=== PATIENT | male | born 1955 | race Caucasian/White ===

== ENCOUNTER 2016-05-14 08:51 | Inpatient (IN) | payer MEDICARE, OTHER ==
[2016-05-14] VITALS (10 sets, daily range): BP systolic 108–153; BP diastolic 59–86
[~2016-05-14] VITALS: Ht 170.2 cm; Wt 71.6 kg
[~2016-05-14 08:51] MED LIST: ASPI325T28 PO; ATOR1TAB18 PO; LEVO125T41 PO; METF500T PO; OMEP20CA3 PO; OXYC-517 PO; VITMTA PO
[2016-05-14] MEDS ORDERED: GASTROGRAFIN SOLUTION 30ML (Q9963) As Ordered ONE (10:22)
[2016-05-14] MEDS ORDERED: ONDANSETRON 4MG/2ML VIAL (J2405) As Ordered ONE ×2 (10:27→16:23)
[2016-05-14] MEDS ORDERED: MORPHINE 4 MG/ML 1ML SYRINGE As Ordered ONE (10:27)
[2016-05-14 10:38] LABS: MEAN CORPUSCULAR HEMOGLOBIN 31.8 pg (27.0-33.0); MEAN CORPUSCULAR HGB CONC 34.1 g/dl (32.0-36.5); MEAN CORPUSCULAR VOLUME 93.4 fl (80.0-96.0); PLATELET COUNT, AUTOMATED 240 k/mm3 (150-450); RED CELL DISTRIBUTION WIDTH 14.2 % (11.5-14.5); WHITE BLOOD COUNT 13.6 K/mm3 (4.0-10.0)
[2016-05-14 11:04] LABS: ALBUMIN 4.2 GM/DL (3.2-5.2); ALBUMIN/GLOBULIN RATIO 1.11 (1.00-1.93); BILIRUBIN,DIRECT 0.4 MG/DL (0.0-0.2); BILIRUBIN,TOTAL 1.6 MG/DL (0.2-1.0); CALCIUM LEVEL 8.5 MG/DL (8.8-10.2); CREATININE FOR GFR 2.31 MG/DL (0.70-1.30); GLOMERULAR FILTRATION RATE 30.8 (>49); POTASSIUM SERUM 3.7 MEQ/L (3.5-5.1)
[2016-05-14] MEDS ORDERED: CEFEPIME INJ 2 GM VIAL (MAXIPIME) (J0692) As Ordered ONE (11:49)
[2016-05-14 11:57] LABS: ABG BASE EXCESS -4.6 (-2.0-2.0); ABG DEVICE NASAL CANN; ABG HCO3 19.4 MEQ/L (22.0-26.0); ABG PARTIAL PRESSURE CO2 33.1 mmHg (35.0-45.0); ABG PARTIAL PRESSURE O2 61.7 mmHg (75.0-100.0); ABG STANDARD HCO3 20.6 MEQ/L (22.0-26.0); ABG TOTAL CO2 20.4 MEQ/L (23.0-31.0); ABG pH (ARTERIAL) 7.386 UNITS (7.350-7.450)
--- NOTE | 2016-05-14 12:10 | REP ---
Abdominal series: Three views. History: Abdominal pain. Findings: Upright chest radiograph is compared with the May 15, 2015 prior study. There is free air under the leaves of the hemidiaphragms bilaterally consistent with pneumoperitoneum. There is some coarse plate-like atelectasis in both lung bases. The patient is status post prior median sternotomy. Heart is not enlarged. There are emphysematous changes in the upper lobes bilaterally unchanged. Supine and erect views of the abdomen show air fluid levels in dilated large and small bowel loops. There is faintly opaque material in the stomach compatible with oral CT contrast. The right hip is replaced. No obstructive lesion is seen. Question ileus pattern. Some vascular calcification is noted. Flank stripes are intact. Psoas margin is intact on the left, obscured on the right by bowel gas. No bony abnormality. Impression: Pneumoperitoneum consistent with perforated intra-abdominal viscus. Ileus pattern in the bowel gas with multiple air-fluid levels. Recommend abdominal and pelvic CT study. Discoid atelectasis is seen in both lung bases. Findings were discussed by telephone with the referring provider in the ER, Dr. Flood, at the time of this dictation. Signed by Pradeep Barlow MD 05/14/2016 02:42 P
[2016-05-14 12:15] LABS: INR 1.2
[2016-05-14] MEDS ORDERED: ASPI1TAB PO (12:40)
[2016-05-14] MEDS ORDERED: LIDOCAINE 2% JELLY 30 ML As Ordered ONE (12:47)
[2016-05-14] MEDS ORDERED: ROCURONIUM BROMIDE 50 MG/5 ML VIAL As Ordered ONE (13:08)
[2016-05-14] MEDS ORDERED: LIDOCAINE 2% INJ 100 MG/5 ML SDV (FOR ANES.) As Ordered ONE (13:08)
[2016-05-14] MEDS ORDERED: PROPOFOL 200 MG/20 ML VIAL As Ordered ONE (13:08)
[2016-05-14] MEDS ORDERED: MIDAZOLAM INJ 2 MG/2 ML VIAL (J2250) As Ordered ONE (13:09)
[2016-05-14] MEDS ORDERED: fentaNYL 250 MCG/5 ML INJECTION (J3010) As Ordered ONE (13:09)
--- NOTE | 2016-05-14 13:14 | REP ---
CT abdomen and pelvis performed with oral contrast only 05/14/2016 Indication generalized abdominal pain Comparison: Abdominal series 05/14/2016 which demonstrated pneumoperitoneum Technique: After drinking two cups of oral contrast each containing 10 ml gastrographin, 3 mm continuous spiral axial sections performed through the abdomen and pelvis Findings: Extensive bullous changes/COPD is seen in the lung bases. There is some patchy infiltrate and/or atelectatic changes or scarring in the lung bases bilaterally and in the right middle lobe. There is a noncalcified pulmonary nodule of 9 mm diameter in the lateral basilar segment left lower lobe on image 15 series 204. Cardiac silhouette is upper normal size three and liver spleen pancreas are unremarkable. Gallbladder is unremarkable. Adrenal glands are normal. Kidneys are without hydro nephrosis. There is generalized ileus pattern involving the stomach, small bowel and colon. There is abundant free intraperitoneal air, as well as some fluid within the left sierra pelvis air-fluid level. Findings are consistent with a perforated viscus. The exact site of viscus perforation is not identified. Atherosclerotic changes are noted in the aorta and iliac arteries, without aneurysm. There are no pathologically enlarged retroperitoneal nodes Bladder is underdistended. Prostate is not enlarged. There is extensive sigmoid diverticulosis. The appendix is normal. Patient has had right total hip arthroplasty in mid there is old bilateral L5 spondylolysis with grade 1 anterolisthesis of five -1. There are advanced degenerative disc changes at this level. Impression: Free intraperitoneal air seen bilaterally and diffusely consistent with perforated viscus. The specific location of viscus perforation is not identified yet may lie in the colon. Generalized ileus pattern with gastric distension and colonic distension primarily. Collection of air and fluid in the left sierra pelvis, best seen on image 118 series 201, most compatible with a extraluminal collection, measuring 6.8 by 2.4 cm Patchy infiltrate and/or atelectatic changes or scarring in the lung bases bilaterally and in the right middle lobe. There is a noncalcified pulmonary nodule of 9 mm diameter in the lateral basilar segment left lower lobe on image 15 series 204, for which follow up CT chest recommended. Case discussed with NORBERTO Palmer in ED on 05/14/16 at 1 pm Signed by Sarah Salter MD 05/14/2016 01:06 P
--- NOTE | 2016-05-14 14:03 | EDDOCDS ---
Nurse's Notes [facility] Name: Darrian Sim Jr Age: 60 yrs Sex: Male : 1955 Arrival Date: 05/14/2016 Time: 08:51 Bed 10 Private MD: Diagnosis: Perforation of intestine (nontraumatic);Hypotension;Generalized abdominal pain;Nausea with vomiting, unspecified;Sepsis, unspecified organism;Acute kidney failure, unspecified Presentation: 05/14 09:14 Presenting complaint: Patient states: lower abdominal pain and pressure for the last 2 dy days. no BM for 2-3 days. sipping at water since yesterday due to vomiting yesterday. concerned about dehydration. Adult Sepsis Screening: The patient does not have new or worsening altered mentation. Patient's respiratory rate is less than 22. Systolic blood pressure is less than or equal to 100 (1 point). Patient has a qSOFA score of 1- Negative Sepsis Screen. Suicide/Homicide risk assessment- the patient denies having any suicidal and/or homicidal ideations and does not present with any other emotional, behavioral or mental health complaints. Status: Patient is not a technical services representative or dependent. Transition of care: patient was not received from another setting of care. 09:14 Acuity: ONUR Level 3 dy 09:14 Method Of Arrival: Wheelchair dy Triage Assessment: 09:18 General: Appears in no apparent distress. Pain: Location: right lower quadrant and left dy lower quadrant. HIV screening NA for this visit Offered previously. GI: Reports lower abdominal pain. Historical: - Allergies: PENICILLINS (Hives); Codeine Sulfaterestless; - Home Meds: 1. aspirin 81 mg Oral tab 1 tab once daily 2. metformin 500 mg Oral tab 1 tab 2 times per day 3. Omeprazole Unknown Oral 1 cap once daily (Last dose: 05/14/2016 07:00) 4. oxycodone 5 mg Oral tab 1 cap every 6 hours 5. Synthroid Oral Unknown once daily - PMHx: Diabetes - NIDDM: controlled; GERD; Hypercholesterolemia; Hypothyroidism; - PSHx: right hip replacement; - Social history: Smoking status: Patient uses tobacco products, heavy tobacco smoker. No barriers to communication noted, The patient speaks fluent [place], Speaks appropriately for age. - Family history: Not pertinent. - : The pt / caregiver states he / she is not on anticoagulants. Home medication list is obtained from the patient. - Exposure Risk Screening:: None identified. Screenin:36 Screening information is obtained from the patient. Fall risk: No risks identified. pml Assistance ADL's: requires no assistance with activities of daily living. Abuse/DV Screen: The patient / caregiver reports he/she is: not in a situation that causes fear, pain or injury. Nutritional screening: No deficits noted. Advance Directives: Currently, there is no health care proxy. home support is adequate. Assessment: 10:36 General: Appears uncomfortable, Behavior is appropriate for age, cooperative. Pain: pml Location: right lower quadrant and left lower quadrant Pain currently is 10 out of 10 on a pain scale. Neurological: Level of Consciousness is awake, alert, Oriented to person, place, time. Cardiovascular: Capillary refill < 3 seconds Rhythm is sinus rhythm No ectopy. Respiratory: Airway is patent Respiratory effort is even, unlabored, Respiratory pattern is regular, symmetrical. GI: Abdomen is distended, Bowel sounds hypoactive in right lower quadrant and left lower quadrant Abd is tender to palpation in right lower quadrant and left lower quadrant Abd is rigid X 4 quads. GI: Reports constipation, nausea, vomiting, intolerance of food. Derm: Skin is pink, warm & dry. 11:38 General: resting on stretcher, resps easy and unlabored, skin p/w/d. sinus rhythm on pml monitor. reports pain is much improved 5/10. . 12:10 Adult Sepsis Screening: Accepted Exclusions- The Sepsis Protocol has been ordered by pml the Provider. 12:56 General: Appears in no apparent distress, Behavior is appropriate for age, cooperative. pml Pain: Location: left lower quadrant and right lower quadrant Pain currently is 5 out of 10 on a pain scale. Neurological: Level of Consciousness is awake, alert, Oriented to person, place, none. Cardiovascular: Capillary refill < 3 seconds Rhythm is sinus rhythm No ectopy. Respiratory: Airway is patent Respiratory effort is even, unlabored. GI: Abdomen is distended. : Pulido in place to gravity drainage Urine is concentrated. Derm: Skin is pink, warm & dry. 14:00 General: Appears in no apparent distress, Behavior is appropriate for age, cooperative. pml Pain: Location: left lower quadrant and right lower quadrant Pain currently is 5 out of 10 on a pain scale. Neurological: Level of Consciousness is awake, alert, Oriented to person, place, time. Cardiovascular: Capillary refill < 3 seconds. Respiratory: Airway is patent Respiratory effort is even, unlabored. GI: Abdomen is distended. Derm: Skin is pink, warm & dry. Vital Signs: 09:13 BP 83 / 55; Pulse 88; Resp 16; Temp 95.3(O); Pulse Ox 96% ; Weight 70.31 kg (R); Height dy 5 ft. 7 in. (170.18 cm) (R); 10:04 BP 85 / 54 LA Sitting (man/reg); jrd 10:25 BP 91 / 53 (auto/); pml 10:28 Pulse 88 MON; Pulse Ox 88% ; pml 10:40 Pulse 84 MON; Pulse Ox 93% ; pml 10:40 BP 102 / 71 (auto/); pml 10:55 BP 98 / 54 (auto/); pml 10:56 Pulse 86 MON; Pulse Ox 74% ; pml 11:04 Pain 5/10; pml 11:10 Pulse 86 MON; Pulse Ox 92% ; pml 11:10 BP 103 / 62 (auto/); pml 11:25 Pulse 82 MON; Pulse Ox 93% ; pml 11:25 BP 105 / 63 (auto/); pml 11:40 BP 104 / 66 (auto/); pml 11:41 Pulse 84 MON; Pulse Ox 92% ; pml 11:55 BP 102 / 67 (auto/); pml 11:56 Pulse 84 MON; Pulse Ox 94% ; pml 12:18 BP 99 / 65 (auto/); pml 12:18 Pulse 84 MON; Pulse Ox 94% ; pml 12:25 BP 85 / 50 (auto/); pml 12:25 Pulse 84 MON; Pulse Ox 100% ; pml 12:37 BP 114 / 71 (auto/); pml 12:38 Pulse 88 MON; Pulse Ox 90% ; pml 12:40 BP 98 / 55 (auto/); pml 12:41 Pulse 92 MON; pml 12:55 Pulse 86 MON; Pulse Ox 94% ; pml 12:55 BP 94 / 59 (auto/); pml 13:10 Pulse 86 MON; Pulse Ox 90% ; pml 13:10 BP 101 / 63 (auto/); pml 13:25 Pulse 90 MON; Pulse Ox 96% ; pml 13:25 BP 105 / 51 (auto/); pml 13:42 Pulse 88 MON; Pulse Ox 94% ; pml 13:42 BP 105 / 64 (auto/); pml 14:01 BP 105 / 65; Pulse 87; Resp 18; Temp 99.3(TE); Pulse Ox 94% on 2 lpm NC; Pain 4/10; pml 09:13 Body Mass Index 24.28 (70.31 kg, 170.18 cm) dy Vitals: 09:13 Log In Time: May 14, 2016 at 08:51. dy ED Course: 08:53 Patient visited by Manny Barriga, Reg. pm4 08:53 Patient moved to Waiting pm4 09:15 Triage Initiated dy 09:21 Patient moved to Pre RCE dy 09:38 Patient moved to Triage 3 jrd 09:41 Minerva Palmer PA-C is PHCP. dt4 09:41 Pito Flood MD is Attending Physician. dt4 09:41 Patient visited by Minerva Palmer PA-C. dt4 09:57 Patient moved to I2 / M2 dwg 10:05 Patient visited by Octavio Moeller PCA. jrd 10:24 Francy Walsh,RN is Primary Nurse. ml6 10:24 Patient moved to 10 ml6 10:26 Lactic Acid (Lara tube on ice) Sent. jo3 10:26 Liver Profile Sent. jo3 10:26 Lipase Sent. jo3 10:26 CBC with Diff Sent. jo3 10:26 Basic Metabolic Profile Sent. jo3 10:26 Amylase Sent. jo3 10:26 Inserted saline lock: 18 gauge in left antecubital area. Labs drawn. (by ED staff). jo3 Sent per order to lab. Labs/Blood culture drawn. 10:36 Primary Nurse role handed off by Francy Walsh,RN jmb 10:36 The patient / caregiver is instructed regarding the plan of care and ED course. Patient pml has correct armband on for positive identification. Placed in gown. Bed in low position. Call light in reach. Side rails up X2. slitter creaser slotter helper on. Pulse ox on. NIBP on. 10:38 Patient visited by Shaila Theodore,CARLITA. pml 10:51 [facility] [place] was scanned into [employer] and attached to record. pm4 10:55 Patient name changed from [place]\S\L\S\Sim\S\ to Darrian\S\L\S\Sim Jr. EDMS 11:20 Inserted peripheral IV: 18gauge IV in right antecubital area and blood collected. pml Patient tolerated the procedure well. No procedures done that require assistance. 11:33 Patient visited by Kehinde Glaser PCA. jlf 11:40 Patient visited by Shaila Theodore,CARLITA. pml 11:42 EKG done. (by ED staff). Reviewed by Minerva Palmer PA-C. jlf 11:44 Patient visited by Kehinde Glaser PCA. jlf 11:44 Patient visited by Kehinde Glaser PCA. jlf 11:54 -Arterial Blood Gas Sent. cs15 12:11 Patient visited by Shaila Theodore RN. pml 12:39 Abdomen, Flat\E\Upright,PA Chest Returned. EDMS 12:44 Paul Hong is Hospitalizing Provider. dt4 12:45 Pulido cath inserted 16 Fr. Balloon inflated. To gravity drainage. Urine specimen pml collected. 12:47 Patient visited by Kehinde Glaser PCA. jlf 12:58 Patient visited by Shaila Theodore,CARLITA. pml 13:20 CT ABD & PELVIS: Oral Contrast Only Returned. EDMS Administered Medications: 10:30 Drug: Diatrizoate Meglumine & Sodium 10 ml [diatrizoate meglumine and diat.sodium 66 jo3 %-10 % oral solution (10 mL)] Route: PO; 10:36 Drug: NS 0.9% 1000 ml [sodium chloride 0.9 % injection solution] Route: IV; Rate: pml bolus; Site: left antecubital; 11:42 Follow up: IV Status: Infusion continued pml 10:36 Drug: Ondansetron 4 mg [ondansetron HCl 2 mg/mL intravenous solution (2 mL)] Route: pml IVP; Site: left antecubital; 10:36 Drug: morphine 4 mg [morphine 4 mg/mL intravenous cartridge (1 mL)] Route: IVP; Site: pml left antecubital; 11:04 Follow up: Pain 5/10 Adult; Response: Pain is decreased pml 11:04 Drug: Diatrizoate Meglumine & Sodium 10 ml [diatrizoate meglumine and diat.sodium 66 pml %-10 % oral solution (10 mL)] Route: PO; 11:42 Not Given (Duplicate Order): NS 0.9% 1000 ml IV at bolus once pml 11:42 Drug: NS 0.9% (Sepsis- hypotension or lactate >4mmol/L, 30ml/kg) 2200 ml [sodium pml chloride 0.9 % injection solution] Route: IV; Rate: bolus; Site: right antecubital; 14:01 Follow up: IV Status: Infusion continued upon admit; IV Intake: 1500ml pml 11:56 Drug: Cefepime 2 grams [cefepime 1 gram solution for injection] Route: IVPB; Rate: 100 pml mL/hr; Infused Over: 30 mins; Site: right antecubital; 13:19 Follow up: IV Status: Completed infusion; IV Intake: 100ml pml Intake: 13:19 IV: 100.00ml; Total: 100.00ml. pml 14:01 IV: 1500.00ml; Total: 1600.00ml. pml RT: 11:54 ABG's drawn from right radial artery allens test done and positive pressure held for 5 cs15 minutes no bleeding noted pressure bandage applied specimen sent pt. tolerated well. O2 via nasal cannula \T\ 2L/min. Order Results: Lab Order: Urinalysis; SPEC'M 05/14/16 12:56 Test: APPEARANCE, URINE; Value: HAZY; Range: CLEAR; Status: F Test: COLOR, URINE; Value: YELLOW; Range: YELLOW; Status: F Test: PH,URINE; Value: 5.0; Range: 5.0-9.0; Units: UNITS; Status: F Test: SPECIFIC GRAVITY URINE AUTO; Value: 1.015; Range: 1.002-1.035; Status: F Test: PROTEIN, URINE AUTO; Value: NEGATIVE; Range: NEGATIVE; Units: mg/dL; Status: F Test: GLUCOSE, URINE (UA) AUTO; Value: NEGATIVE; Range: NEGATIVE; Units: mg/dL; Status: F Test: KETONE, URINE AUTO; Value: NEGATIVE; Range: NEGATIVE; Units: mg/dL; Status: F Test: UROBILINOGEN, URINE AUTO; Value: 0.2; Range: 0.0-2.0; Units: mg/dL; Status: F Test: BILIRUBIN, URINE AUTO; Value: NEGATIVE; Range: NEGATIVE; Status: F Test: NITRITE, URINE AUTO; Value: NEGATIVE; Range: NEGATIVE; Status: F Test: LEUKOCYTE ESTERASE, URINE AUTO; Value: NEGATIVE; Range: NEGATIVE; Status: F Test: BLOOD, URINE BLOOD; Value: 1+; Range: NEGATIVE; Abnormal: Above high normal; Status: F Test: WBC, URINE AUTO; Value: 8; Range: 0-3; Abnormal: Above high normal; Units: /HPF; Status: F Test: RBC, URINE AUTO; Value: 5; Range: 0-3; Abnormal: Above high normal; Units: /HPF; Status: F Test: BACTERIA, URINE AUTO; Value: 1+; Range: NEGATIVE; Abnormal: Above high normal; Status: F Test: SQUAMOUS EPITHELIAL CELL UR AU; Value: 1; Range: 0-6; Units: /HPF; Status: F Test: MUCUS, URINE; Value: SMALL; Range: NEGATIVE; Status: F Test: HYALINE CAST, URINE AUTO; Value: 8; Range: 0-1; Units: /LPF; Status: F Test: GRANULAR CAST, URINE AUTO; Value: 11; Range: NONE; Units: /LPF; Status: F Lab Order: Amylase; [facility] 05/14/16 10:21 Test: AMYLASE; Value: 28; Range: 25-115; Units: U/L; Status: F Lab Order: Basic Metabolic Profile; [facility] 05/14/16 10:21 Test: GLUCOSE, FASTING; Value: 146; Range: 80-110; Abnormal: Above high normal; Units: MG/DL; Status: F Test: BLOOD UREA NITROGEN; Value: 34; Range: 7-18; Abnormal: Above high normal; Units: MG/DL; Status: F Test: CREATININE FOR GFR; Value: 2.31; Range: 0.70-1.30; Abnormal: Above high normal; Units: MG/DL; Status: F Test: GLOMERULAR FILTRATION RATE; Value: 30.8; Range: >49; Abnormal: Below low normal; Status: F Test: SODIUM LEVEL; Value: 138; Range: 136-145; Units: MEQ/L; Status: F Test: POTASSIUM SERUM; Value: 3.7; Range: 3.5-5.1; Units: MEQ/L; Status: F Test: CHLORIDE LEVEL; Value: 96; Range: 98-107; Abnormal: Below low normal; Units: MEQ/L; Status: F Test: CARBON DIOXIDE LEVEL; Value: 22; Range: 21-32; Units: MEQ/L; Status: F Test: ANION GAP; Value: 20; Range: 8-16; Abnormal: Above high normal; Units: MEQ/L; Status: F Test: CALCIUM LEVEL; Value: 8.5; Range: 8.8-10.2; Abnormal: Below low normal; Units: MG/DL; Status: F Test Note: ; Units are mL/min/1.73 m2 Chronic Kidney Disease Staging per NKF: Stage I & II GFR >=60 Normal to Mildly Decreased Stage III GFR 30-59 Moderately Decreased Stage IV GFR 15-29 Severely Decreased Stage V GFR <15 Very Little GFR Left ESRD GFR <15 on ACTIVITIES LEADER Lab Order: CBC with Diff; SPEC'M 05/14/16 10:21 Test: WHITE BLOOD COUNT; Value: 13.6; Range: 4.0-10.0; Abnormal: Above high normal; Units: K/mm3; Status: F Test: RED BLOOD COUNT; Value: 5.26; Range: 4.30-6.10; Units: M/mm3; Status: F Test: HEMOGLOBIN; Value: 16.8; Range: 14.0-18.0; Units: g/dl; Status: F Test: HEMATOCRIT; Value: 49.2; Range: 42.0-52.0; Units: %; Status: F Test: MEAN CORPUSCULAR VOLUME; Value: 93.4; Range: 80.0-96.0; Units: fl; Status: F Test: MEAN CORPUSCULAR HEMOGLOBIN; Value: 31.8; Range: 27.0-33.0; Units: pg; Status: F Test: MEAN CORPUSCULAR HGB CONC; Value: 34.1; Range: 32.0-36.5; Units: g/dl; Status: F Test: RED CELL DISTRIBUTION WIDTH; Value: 14.2; Range: 11.5-14.5; Units: %; Status: F Test: PLATELET COUNT, AUTOMATED; Value: 240; Range: 150-450; Units: k/mm3; Status: F Test: NEUTROPHILS; Value: 93; Range: 35-75; Abnormal: Above high normal; Units: %; Status: F Test: LYMPHOCYTES; Value: 6; Range: 16-52; Abnormal: Below low normal; Units: %; Status: F Test: MONOCYTES; Value: 1; Range: 0-8; Units: %; Status: F Test: RBC MORPHOLOGY; Value: NORMAL; Status: F Lab Order: Lipase; [facility] 05/14/16 10:21 Test: LIPASE; Value: 50; Range: 73-393; Abnormal: Below low normal; Units: U/L; Status: F Lab Order: Liver Profile; [facility] 05/14/16 10:21 Test: AST/SGOT; Value: 18; Range: 15-37; Units: U/L; Status: F Test: ALT/SGPT; Value: 20; Range: 12-78; Units: U/L; Status: F Test: ALKALINE PHOSPHATASE; Value: 97; Range: 45-117; Units: U/L; Status: F Test: BILIRUBIN,TOTAL; Value: 1.6; Range: 0.2-1.0; Abnormal: Above high normal; Units: MG/DL; Status: F Test: BILIRUBIN,DIRECT; Value: 0.4; Range: 0.0-0.2; Abnormal: Above high normal; Units: MG/DL; Status: F Test: TOTAL PROTEIN; Value: 8.0; Range: 6.4-8.2; Units: GM/DL; Status: F Test: ALBUMIN; Value: 4.2; Range: 3.2-5.2; Units: GM/DL; Status: F Test: ALBUMIN/GLOBULIN RATIO; Value: 1.11; Range: 1.00-1.93; Status: F Lab Order: CRP; [facility] 05/14/16 10:21 Test: C REACTIVE PROTEIN QUANTITATIV; Value: 21.50; Range: 0.00-0.30; Abnormal: Above high normal; Units: MG/DL; Status: F Lab Order: Lactic Acid (Lara tube on ice); [facility] 05/14/16 10:21 Test: LACTIC ACID LEVEL, LACTATE; Value: 8.5; Range: 0.4-2.0; Abnormal: Above upper panic limits; Units: MMOL/L; Status: F Lab Order: PLATELET ESTIMATE; [facility] 05/14/16 10:21 Test: PLATELET ESTIMATE; Value: NORMAL; Range: NORMAL; Status: F Lab Order: -Arterial Blood Gas; [facility] 05/14/16 11:51 Test: ABG pH (ARTERIAL); Value: 7.386; Range: 7.350-7.450; Units: UNITS; Status: F Test: ABG PARTIAL PRESSURE CO2; Value: 33.1; Range: 35.0-45.0; Abnormal: Below low normal; Units: mmHg; Status: F Test: ABG PARTIAL PRESSURE O2; Value: 61.7; Range: 75.0-100.0; Abnormal: Below low normal; Units: mmHg; Status: F Test: ABG TOTAL CO2; Value: 20.4; Range: 23.0-31.0; Abnormal: Below low normal; Units: MEQ/L; Status: F Test: ABG HCO3; Value: 19.4; Range: 22.0-26.0; Abnormal: Below low normal; Units: MEQ/L; Status: F Test: ABG BASE EXCESS; Value: -4.6; Range: -2.0-2.0; Abnormal: Below low normal; Status: F Test: ABG STANDARD HCO3; Value: 20.6; Range: 22.0-26.0; Abnormal: Below low normal; Units: MEQ/L; Status: F Test: ABG O2 SATURATION; Value: 91.4; Range: 95.0-99.0; Abnormal: Below low normal; Units: %; Status: F Test: ABG DEVICE; Value: NASAL REBECA; Status: F Lab Order: PT/INR; [facility] 05/14/16 11:36 Test: PROTHROMBIN TIME; Value: 15.3; Range: 12.3-14.5; Abnormal: Above high normal; Units: SECONDS; Status: F Test: INR; Value: 1.20; Status: F Test Note: ; THERAPUTIC HUMAN INR VALUES INDICATIONS NORMAL RANGES PROPHYLAXIS/TREATMENT OF: VENOUS THROMBOSIS 2.0-3.0 PULMONARY EMBOLISM 2.0-3.0 PREVENTION OF SYSTEMIC EMBOLISM FROM: TISSUE HEART VALVES 2.0-3.0 ACUTE MYOCARDIAL INFARCTION 2.0-3.0 VALVULAR HEART DISEASE 2.0-3.0 ATRIAL FIBRILLATION 2.0-3.0 MECHANICAL VALVES(HIGH RISK) 2.5-3.5 RECURRENT MYOCARDIAL INFARCTION 2.5-3.5 Lab Order: PTT; SPEC'M 05/14/16 11:36 Test: PARTIAL THROMBOPLASTIN TIME; Value: 25.4; Range: 26.6-37.1; Abnormal: Below low normal; Units: SECONDS; Status: F Lab Order: Type & Screen; SPEC'M 05/14/16 11:36 Test: BLOOD TYPE; Value: A POS; Status: F Radiology Order: CT ABD & PELVIS: Oral Contrast Only Test: CT ABD & PELVIS: Oral Contrast Only REASON FOR EXAMINATION: Abdomen Pain; CT abdomen and pelvis performed with oral contrast only 05/14/2016; ; Indication generalized abdominal pain; ; Comparison: Abdominal series 05/14/2016 which demonstrated pneumoperitoneum; ; Technique: After drinking two cups of oral contrast each containing 10 ml; gastrographin, 3 mm continuous spiral axial sections performed through the; abdomen and pelvis; ; Findings: Extensive bullous changes/COPD is seen in the lung bases. There is; some patchy infiltrate and/or atelectatic changes or scarring in the lung bases; bilaterally and in the right middle lobe. There is a noncalcified pulmonary; nodule of 9 mm diameter in the lateral basilar segment left lower lobe on image; 15 series 204.; ; Cardiac silhouette is upper normal size three and liver spleen pancreas are; unremarkable. Gallbladder is unremarkable. Adrenal glands are normal. Kidneys; are without hydro nephrosis.; ; There is generalized ileus pattern involving the stomach, small bowel and colon.; There is abundant free intraperitoneal air, as well as some fluid within the left; sierra pelvis air-fluid level. Findings are consistent with a perforated viscus.; The exact site of viscus perforation is not identified. Atherosclerotic changes; are noted in the aorta and iliac arteries, without aneurysm. There are no; pathologically enlarged retroperitoneal nodes; ; Bladder is underdistended. Prostate is not enlarged. There is extensive sigmoid; diverticulosis. The appendix is normal. Patient has had right total hip; arthroplasty in mid there is old bilateral L5 spondylolysis with grade 1; anterolisthesis of five -1. There are advanced degenerative disc changes at this; level.; ; Impression:; ; Free intraperitoneal air seen bilaterally and diffusely consistent with; perforated viscus. The specific location of viscus perforation is not identified; yet may lie in the colon.; ; Generalized ileus pattern with gastric distension and colonic distension; primarily. Collection of air and fluid in the left sierra pelvis, best seen on; image 118 series 201, most compatible with a extraluminal collection, measuring; 6.8 by 2.4 cm; ; Patchy infiltrate and/or atelectatic changes or scarring in the lung bases; bilaterally and in the right middle lobe. There is a noncalcified pulmonary; nodule of 9 mm diameter in the lateral basilar segment left lower lobe on image; 15 series 204, for which follow up CT chest recommended.; ; ; ; Case discussed with NORBERTO Palmer in ED on 05/14/16 at 1 pm; ; ; Signed by; Sarah Salter MD 05/14/2016 01:06 P; Radiology Order: Abdomen, Flat\E\Upright,PA Chest Test: Abdomen, Flat\E\Upright,PA Chest REASON FOR EXAMINATION: Abdomen Pain; Abdominal series: Three views.; ; History: Abdominal pain.; ; Findings: Upright chest radiograph is compared with the May 15, 2015 prior; study. There is free air under the leaves of the hemidiaphragms bilaterally; consistent with pneumoperitoneum. There is some coarse plate-like atelectasis in; both lung bases. The patient is status post prior median sternotomy. Heart is; not enlarged. There are emphysematous changes in the upper lobes bilaterally; unchanged.; ; Supine and erect views of the abdomen show air fluid levels in dilated large and; small bowel loops. There is faintly opaque material in the stomach compatible; with oral CT contrast. The right hip is replaced. No obstructive lesion is; seen. Question ileus pattern. Some vascular calcification is noted. Flank; stripes are intact. Psoas margin is intact on the left, obscured on the right by; bowel gas. No bony abnormality.; ; Impression:; ; Pneumoperitoneum consistent with perforated intra-abdominal viscus. Ileus; pattern in the bowel gas with multiple air-fluid levels. Recommend abdominal and; pelvic CT study. Discoid atelectasis is seen in both lung bases.; ; Findings were discussed by telephone with the referring provider in the ER, Dr.; Flood, at the time of this dictation.; ; ; ; ; Unreviewed; Outcome: 10:26 Discharge Assessment:. jo3 12:47 Decision to Hospitalize by Provider. dt4 14:02 Discharge Assessment: Patient awake, alert and oriented x 3. No cognitive and/or pml functional deficits noted. Patient verbalized understanding of disposition instructions. patient administered narcotics - yes. Patient was admitted to the hospital or transferred to another facility. 14:02 The following High Risk Discharge criteria are identified: None. Admitted to OR pml accompanied by nurse, accompanied by tech, via stretcher, with oxygen, on monitor, with chart. Condition: stable. CT Study completed. Admission hand-off: Other: bedside report in pacu . Property given to family member, son. 14:03 Patient left the ED. pml Signatures: Dispatcher [employer] EDMS Jr Maurice, RN RN Reece Aggarwal, RN RN Rebekah CardonaRN RN Doug Canseco RN RN ml6 Shaila TheodoreRN Lorne CardozoRN RN Kehinde Hadley, PUBLIC DEFENDER PUBLIC DEFENDER Minerva Moran, PA-Grant PA-C dt4 Octavio Moeller, PUBLIC DEFENDER PUBLIC DEFENDER jrd Girish Wynn,RT RT cs15 Manny Barriga, Reg Reg pm4 MTDD
--- NOTE | 2016-05-14 14:03 | EDDOCDS ---
Physician Documentation [facility] Name: Darrian Sim Jr Age: 60 yrs Sex: Male : 1955 Arrival Date: 05/14/2016 Time: 08:51 Bed 10 Private MD: Disposition: 05/14/16 12:47 Hospitalization ordered by Paul Urbina for Inpatient Admission. Preliminary diagnosis are Perforation of intestine (nontraumatic), Hypotension, Generalized abdominal pain, Nausea with vomiting, unspecified, Sepsis, unspecified organism, Acute kidney failure, unspecified. - Bed requested for Admit. - Status is Inpatient Admission. pml - Condition is Stable. - Problem is new. - Symptoms have improved. Historical: - Allergies: PENICILLINS (Hives); Codeine Sulfaterestless; - Home Meds: 1. aspirin 81 mg Oral tab 1 tab once daily 2. metformin 500 mg Oral tab 1 tab 2 times per day 3. Omeprazole Unknown Oral 1 cap once daily (Last dose: 05/14/2016 07:00) 4. oxycodone 5 mg Oral tab 1 cap every 6 hours 5. Synthroid Oral Unknown once daily - PMHx: Diabetes - NIDDM: controlled; GERD; Hypercholesterolemia; Hypothyroidism; - PSHx: right hip replacement; - Social history: Smoking status: Patient uses tobacco products, heavy tobacco smoker. No barriers to communication noted, The patient speaks fluent Welsh, Speaks appropriately for age. - Family history: Not pertinent. - : The pt / caregiver states he / she is not on anticoagulants. Home medication list is obtained from the patient. - Exposure Risk Screening:: None identified. Vital Signs: 05/14 09:13 BP 83 / 55; Pulse 88; Resp 16; Temp 95.3(O); Pulse Ox 96% ; Weight 70.31 kg / 155.01 dy lbs (R); Height 5 ft. 7 in. (170.18 cm) (R); 10:04 BP 85 / 54 LA Sitting (man/reg); jrd 10:25 BP 91 / 53 (auto/); pml 10:28 Pulse 88 MON; Pulse Ox 88% ; pml 10:40 Pulse 84 MON; Pulse Ox 93% ; pml 10:40 BP 102 / 71 (auto/); pml 10:55 BP 98 / 54 (auto/); pml 10:56 Pulse 86 MON; Pulse Ox 74% ; pml 11:04 Pain 5/10; pml 11:10 Pulse 86 MON; Pulse Ox 92% ; pml 11:10 BP 103 / 62 (auto/); pml 11:25 Pulse 82 MON; Pulse Ox 93% ; pml 11:25 BP 105 / 63 (auto/); pml 11:40 BP 104 / 66 (auto/); pml 11:41 Pulse 84 MON; Pulse Ox 92% ; pml 11:55 BP 102 / 67 (auto/); pml 11:56 Pulse 84 MON; Pulse Ox 94% ; pml 12:18 BP 99 / 65 (auto/); pml 12:18 Pulse 84 MON; Pulse Ox 94% ; pml 12:25 BP 85 / 50 (auto/); pml 12:25 Pulse 84 MON; Pulse Ox 100% ; pml 12:37 BP 114 / 71 (auto/); pml 12:38 Pulse 88 MON; Pulse Ox 90% ; pml 12:40 BP 98 / 55 (auto/); pml 12:41 Pulse 92 MON; pml 12:55 Pulse 86 MON; Pulse Ox 94% ; pml 12:55 BP 94 / 59 (auto/); pml 13:10 Pulse 86 MON; Pulse Ox 90% ; pml 13:10 BP 101 / 63 (auto/); pml 13:25 Pulse 90 MON; Pulse Ox 96% ; pml 13:25 BP 105 / 51 (auto/); pml 13:42 Pulse 88 MON; Pulse Ox 94% ; pml 13:42 BP 105 / 64 (auto/); pml 14:01 BP 105 / 65; Pulse 87; Resp 18; Temp 99.3(TE); Pulse Ox 94% on 2 lpm NC; Pain 4/10; pml 09:13 Body Mass Index 24.28 (70.31 kg, 170.18 cm) dy MDM: 09:18 Urinalysis Ordered. EDMS 09:18 Urine Culture Ordered. EDMS 09:54 NS 0.9% 1000 ml IV at bolus once ordered. dt4 09:54 Ondansetron 4 mg IVP once ordered. dt4 09:54 IV Saline Lock ordered. dt4 09:54 Undress patient appropriately for examination ordered. dt4 09:54 morphine 4 mg IVP once ordered. dt4 09:55 Amylase Ordered. EDMS 09:55 Basic Metabolic Profile Ordered. EDMS 09:55 CBC with Diff Ordered. EDMS 09:55 Lipase Ordered. EDMS 09:55 Liver Profile Ordered. EDMS 09:55 CRP Ordered. EDMS 09:55 NOTHING BY MOUTH+DIET ordered. EDMS 09:55 CT ABD & PELVIS: Oral Contrast Only Ordered. EDMS 09:56 Financial registration complete. pm4 10:02 NS 0.9% 1000 ml IV at bolus once ordered. dt4 10:05 Cold Food Packer ordered. dt4 10:06 -Blood Culture (Adults Only), peripheral from different site, or from device/port/PICC dt4 etc. if present ordered. 10:08 Lactic Acid (Lara tube on ice) Ordered. EDMS 10:08 -Blood Culture Ordered. EDMS 10:25 -Blood Culture (Adults Only), peripheral from different site, or from device/port/PICC lbd etc. if present complete. 10:28 BLOOD CULTURES Ordered. EDMS 10:32 Diatrizoate Meglumine & Sodium Liquid 10 ml PO once; 1st cup at 1030 ordered. jo3 10:33 Diatrizoate Meglumine & Sodium Liquid 10 ml PO once; 2nd cup at 1100 ordered. jo3 10:40 DIFFERENTIAL NO CHARGE Ordered. EDMS 10:40 PLATELET ESTIMATE Ordered. EDMS 10:51 [facility] Payment Agreement was scanned into [employer] and attached to record. pm4 11:12 Abdomen, Flat\E\Upright,PA Chest Ordered. EDMS 11:13 BED REQUEST+ADM ordered. EDMS 11:36 Call Respiratory ordered. dt4 11:36 Cold Food Packer/Pulse Ox/q 15 min VS ordered. dt4 11:36 Large bore IV x 2 ordered. dt4 11:36 Oxygen at 4L/Min NC or Home dosage ordered. dt4 11:36 Intake and Output Hourly ordered. dt4 11:37 -Arterial Blood Gas Ordered. EDMS 11:37 PT/INR Ordered. EDMS 11:37 PTT Ordered. EDMS 11:37 Type & Screen Ordered. EDMS 11:37 ECG WITH READING ER PHYS+CARDIAG ordered. EDMS 11:37 Call Respiratory complete. lbd 11:39 Cefepime 2 grams IVPB at 100 mL/hr once over 30 mins; dilute in 50mL of NS or D5W dt4 ordered. 11:39 NS 0.9% (Sepsis- hypotension or lactate >4mmol/L, 30ml/kg) 2200 ml IV at bolus once; dt4 Give in 500mL aliquots, assess for rales after each, inform provider ordered. 11:42 NS 0.9% 1000 ml IV at bolus once ordered. pml 12:21 ED course: SPOKE WITH DR. RAMIREZ AT THIS TIME. ADVISED THIS PT WOULD NEED AT LEAST A dt4 HOSPITALIST CONSULT AND SURGICAL ADMISSION, OR VICE VERSA. DR. RAMIREZ IN AGREEMENT AND STATES WILL COME DOWN TO SEE THIS PT. . ED course: SPOKE WITH NURSE IN O.R. REGARDING THIS PT. ADVISED DR. URBINA IS SCRUBBED IN AT THIS TIME AND TOOK A MESSAGE REGARDING THIS PT. WILL CALL BACK OR COME DOWN WHEN ABLE. . 12:34 Pulido ordered. pml Administered Medications: 10:30 Drug: Diatrizoate Meglumine & Sodium 10 ml [diatrizoate meglumine and diat.sodium 66 jo3 %-10 % oral solution (10 mL)] Route: PO; 10:36 Drug: NS 0.9% 1000 ml [sodium chloride 0.9 % injection solution] Route: IV; Rate: pml bolus; Site: left antecubital; 11:42 Follow up: IV Status: Infusion continued pml 10:36 Drug: Ondansetron 4 mg [ondansetron HCl 2 mg/mL intravenous solution (2 mL)] Route: pml IVP; Site: left antecubital; 10:36 Drug: morphine 4 mg [morphine 4 mg/mL intravenous cartridge (1 mL)] Route: IVP; Site: pml left antecubital; 11:04 Follow up: Pain 5/10 Adult; Response: Pain is decreased pml 11:04 Drug: Diatrizoate Meglumine & Sodium 10 ml [diatrizoate meglumine and diat.sodium 66 pml %-10 % oral solution (10 mL)] Route: PO; 11:42 Not Given (Duplicate Order): NS 0.9% 1000 ml IV at bolus once pml 11:42 Drug: NS 0.9% (Sepsis- hypotension or lactate >4mmol/L, 30ml/kg) 2200 ml [sodium pml chloride 0.9 % injection solution] Route: IV; Rate: bolus; Site: right antecubital; 14:01 Follow up: IV Status: Infusion continued upon admit; IV Intake: 1500ml pml 11:56 Drug: Cefepime 2 grams [cefepime 1 gram solution for injection] Route: IVPB; Rate: 100 pml mL/hr; Infused Over: 30 mins; Site: right antecubital; 13:19 Follow up: IV Status: Completed infusion; IV Intake: 100ml pml Signatures: Dispatcher [employer] EDMS Savannah Casey, Ticket Broker Unit lbd Reece Huber RN RN dy Helmerci, Jennifer, RN RN jo3 Shaila Theodore RN RN pml Tschudi, Diane, PA-C PADony dt4 Manny Barriga, Reg Reg pm4 The chart was reviewed and I authenticate all verbal orders and agree with the evaluation and treatment provided.Corrections: (The following items were deleted from the chart) 11:41 11:36 Set up for triple lumen central Iine placement ordered. dt4 sudheer Attachments: 10:51 [facility] Payment Agreement pm4 MTDD
[2016-05-14] MEDS ORDERED: ONDANSETRON 4MG/2ML VIAL (J2405) IV PRN ×2 (14:15→17:45)
--- NOTE | 2016-05-14 14:15 | CR.PDOC ---
[facility] Consultation Consultation DATE OF CONSULTATION: May 14, 2016 at 08:51 PRIMARY CARE PHYSICIAN: REFERRING PROVIDER: Dr. Hong REASON FOR CONSULTATION/CHIEF COMPLAINT: . Abdominal pain HISTORY OF PRESENT ILLNESS: 60-year-old male with past medical history of diabetes mellitus, hypothyroidism, dyslipidemia, and GERD presents to the ER with a chief complaint of abdominal pain for the last 2 days. According to the patient, he started to have abdominal pain after he had coffee 2 days ago. He states that he was unable to eat anything thereafter as he would have sharp abdominal pain on the lower quadrants bilaterally. He denied any episodes of vomitus, and states that he has not had a bowel movement or passed any flatus during this time. He notes that he came to the ER today as his abdominal pain has progressively worsened and now has diffusely spread from the lower quadrants bilaterally. In the ER, a CT scan of the abdomen was done and revealed free intraperitoneal air consistent with a perforated viscus. The surgical team was contacted in the ER and the patient is scheduled to go to the operating room later today. The hospitalist team was consulted for management of the patient's acute kidney injury, and other chronic medical comorbidities. ALLERGIES: Please see below. HOME MEDICATIONS: Please see below. PAST MEDICAL HISTORY: 1. . As noted in [facility] Surgical history-right hip replacement in 04/2015 FAMILY HISTORY: Nonpertinent SOCIAL HISTORY: Denies any regular alcohol or illicit drug use REVIEW OF SYSTEMS: 10 point review of systems negative unless otherwise specified in [facility] PHYSICAL EXAMINATION: VITAL SIGNS: Please see below. GENERAL APPEARANCE: . Awake, alert, in no acute distress HEENT: . Normocephalic, atraumatic RESPIRATORY: . Clear to auscultation bilaterally CARDIOVASCULAR: . Normal rate, normal rhythm, normal S1, S2 ABDOMEN: . Tenderness to palpation diffusely. No guarding or rigidity, rebound tenderness noted. EXTREMITIES: . No erythema or tenderness noted on the lower extremity is bilaterally LABORATORY DATA: Please see below. ASSESSMENT/PLAN: Perforated Viscus CT scan of the abdomen done in the ER noted to have free intra-peritoneal air seen bilaterally and diffusely consistent with perforated viscus Patient seen and examined in the ER, resting comfortably and in no acute distress, and hemodynamically stable We'll keep the patient nothing by mouth Started on Zosyn for empiric coverage Surgical team contacted in the ER and the patient is scheduled to go to the operating room later today Lactic acidosis likely secondary to above Serum lactate noted to be 8.5 The patient was noted to have a systolic blood pressure in the 80s and a diastolic in the 50s-this has responded appropriately to IV fluid hydration as his blood pressure is currently 117/81. Of note the patient is also on metformin at home which also could have aided in an elevated lactic acid level-we will withhold this medication for now The patient will receive a 30 mL per KG bolus of IV fluids Repeat lactic acid level Acute kidney injury Serum creatinine noted to be 2.31, baseline noted to be between 0.6 and 0.8 Likely secondary to intravascular volume depletion The patient has been ordered a 30 mL per KG IV fluid bolus for now Pulido catheter ordered to strictly monitor I's and o's We will repeat BMP in the a.m. Leukocytosis White blood cell count noted to be 13.6-likely reactive from underlying perforated viscus Blood cultures, urine cultures ordered Started on Zosyn for empiric coverage Will trend WBC count Diabetes mellitus Continue on insulin sliding scale Hypothyroidism We will start the patient on IV levothyroxine History of CAD The patient does take aspirin 81 mg daily-we will hold this given the need for surgical procedure GERD Continue on IV Protonix Vital Signs/I&O As noted in the EMR Laboratory Data Labs 24H Laboratory Tests 2 05/14/16 10:21: Aspartate Amino Transf (AST/SGOT) 18, Alanine Aminotransferase (ALT/SGPT) 20, Alkaline Phosphatase 97, Total Bilirubin 1.6H, Direct Bilirubin 0.4H, Albumin 4.2, Albumin/Globulin Ratio 1.11, Amylase Level 28, Anion Gap 20H, White Blood Count 13.6H, Red Blood Count 5.26, Hemoglobin 16.8, Hematocrit 49.2, Mean Corpuscular Volume 93.4, Mean Corpuscular Hemoglobin 31.8, Mean Corpuscular Hemoglobin Concent 34.1, Red Cell Distribution Width 14.2, Platelet Count 240, Neutrophils (%) (Auto) , Lymphocytes (%) (Auto) , Monocytes (%) (Auto) , Eosinophils (%) (Auto) , Basophils (%) (Auto) , Neutrophils # (Auto) , Lymphocytes # (Auto) , Monocytes # (Auto) , Eosinophils # (Auto) , Basophils # ( Auto) , C-Reactive Protein, Quantitative 21.50H, Calcium Level 8.5L, Glomerular Filtration Rate 30.8L, Lactic Acid Level 8.5*H, Large Unclassified Cells # , Large Unclassified Cells % , Lipase 50L, Lymphocytes (Manual) 6L, Monocytes ( Manual) 1, Neutrophils 93H, Platelet Estimate NORMAL, Red Blood Cell Morphology NORMAL, Total Protein 8.0 05/14/16 11:36: Activated Partial Thromboplast Time 25.4L, Prothromb Time International Ratio 1.20, Prothrombin Time 15.3H 05/14/16 11:51: Arterial Blood pH 7.386, Arterial Blood Partial Pressure CO2 33.1L, Arterial Blood Partial Pressure O2 61.7L, Arterial Blood Total CO2 20.4L, Arterial Blood HCO3 19.4L, Arterial Blood Base Excess -4.6L, Arterial Blood Oxygen Saturation 91.4L, Blood Gas Bicarbonate Standard 20.6L, Oxygen Delivery Device NASAL REBECA 05/14/16 12:56: Urine Amorphous Sediment , Urine Appearance HAZY, Urine Color YELLOW, Urine pH 5.0, Urine Specific [place] 1.015, Urine Protein NEGATIVE, Urine Glucose (UA) NEGATIVE, Urine Ketones NEGATIVE, Urine Urobilinogen 0.2, Urine Bilirubin NEGATIVE, Urine Leukocyte Esterase NEGATIVE, Urine Bacteria (Auto) 1+H, Urine Blood 1+H, Urine Calcium Carbonate Cryst(Auto) , Urine Calcium Oxalate Cryst ( Auto) , Urine Calcium Phosphate Ambar (Auto) , Urine Cellular Casts , Urine Cystine Crystals , Urine Granular Casts (Auto) 11, Urine Hyaline Casts (Auto) 8 , Urine Leucine Crystals , Urine Mucus (Auto) SMALL, Urine Nitrite NEGATIVE, Urine Oval Fat Bodies (Auto) , Urine RBC (Auto) 5H, Urine Renal Epithelial Cells , Urine Sperm (Auto) , Urine Squamous Epithelial Cells 1, Urine Transitional Epithelial Cells , Urine Trichomonas (Auto) , Urine Triple Phosphate Cryst (Auto) , Urine Tyrosine Crystals , Urine Uric Acid Crystals ( Auto) , Urine WBC (Auto) 8H, Urine Waxy Casts (Auto) , Urine Yeast-Like Cells ( Auto) CBC/BMP Laboratory Tests 05/14/16 10:21 Red Blood Count 5.26, Mean Corpuscular Volume 93.4, Mean Corpuscular Hemoglobin 31.8, Mean Corpuscular Hemoglobin Concent 34.1, Red Cell Distribution Width 14.2 , Neutrophils (%) (Auto) , Lymphocytes (%) (Auto) , Monocytes (%) (Auto) , Eosinophils (%) (Auto) , Basophils (%) (Auto) , Neutrophils # (Auto) , Lymphocytes # (Auto) , Monocytes # (Auto) , Eosinophils # (Auto) , Basophils # ( Auto) Microbiology Microbiology 05/14/16 Blood Culture, Received Pending 05/14/16 Blood Culture, Received Pending 05/14/16 Urine Culture, Received Pending Allergies Coded Allergies: Penicillins (Verified Allergy, Intermediate, HIVES, 05/14/16) Codeine (Unverified Allergy, Unknown, 05/14/16) Home Medications Scheduled Aspirin (Aspirin 81) 81 Mg Tab 81 MG PO DAILY (Reported) Levothyroxine Sodium (Levoxyl) 125 Mcg Tab 125 MCG PO DAILY (Reported) Metformin Hydrochloride (Metformin HCl) 500 Mg Tab 500 MG PO BID (Reported) Multivitamins *[facility] STOCKED* (Thera M Plus *[facility] STOCKED*) 1 Tab Tab 1 TAB PO DAILY (Reported) Omeprazole (Omeprazole) 20 Mg Cap 20 MG PO DAILY (Reported) Scheduled PRN Oxycodone HCl (Oxycodone HCl) 5 Mg Tab 5 MG PO Q6H PRN PRN PAIN (Reported) YUNIOR RAMIREZ MD May 14, 2016 14:15
[2016-05-14] MEDS ORDERED: GLUCAGON FOR INJ 1 MG VIAL (J1610) SC PRN (14:30)
[2016-05-14] MEDS ORDERED: DEXTROSE 50% 50 ML SYRINGE IV PRN (14:30)
[2016-05-14] MEDS ORDERED: GLUCOSE 4 GM CHEW TABLET PO PRN (14:30)
[2016-05-14] MEDS ORDERED: ZOSYN 3.375 GM VIAL (J2543) As Ordered ONE (14:34)
[2016-05-14] MEDS ORDERED: SUCCINYLCHOLINE 100 MG/5 ML SYRINGE (J0330) As Ordered ONE (14:36)
[2016-05-14] MEDS ORDERED: ETOMIDATE INJ 20MG/10ML VIAL As Ordered ONE (14:37)
[2016-05-14] MEDS ORDERED: PHENYLEPHRINE INJ 10MG/ML VIAL (J2370) As Ordered ONE (14:42)
[2016-05-14] MEDS ORDERED: PHENYLephrine HCL 500 MCG/5 ML (100MCG/ML) SYRINGE (J2370) As Ordered ONE (14:48)
[2016-05-14] MEDS ORDERED: METOCLOPRAMIDE INJ 10MG/2ML VIAL (J2765) As Ordered ONE (16:23)
[2016-05-14] MEDS ORDERED: GLYCOPYRROLATE INJ 0.2 MG/ML 2 ML VIAL As Ordered ONE (16:23)
[2016-05-14] MEDS ORDERED: NEOSTIGMINE 1MG/ML 5 ML SYRINGE (J2710) As Ordered ONE (16:23)
[2016-05-14] MEDS ORDERED: HYDROmorphone HCL 2 MG/ML 1ML VIAL (J1170) As Ordered ONE (16:27)
[2016-05-14] MEDS ORDERED: fentaNYL 100 MCG/2 ML INJECTION (J3010) As Ordered ONE (17:10)
[2016-05-14] MEDS ORDERED: fentaNYL 100 MCG/2 ML INJECTION (J3010) IV PRN (17:45)
[2016-05-14] MEDS ORDERED: LR 1,000 ML IV SCH (17:45)
[2016-05-14 18:17] LABS: DIFF SLIDE NUMBER 236; MEAN CORPUSCULAR HEMOGLOBIN 30.6 pg (27.0-33.0); MEAN CORPUSCULAR HGB CONC 33.3 g/dl (32.0-36.5); MEAN CORPUSCULAR VOLUME 91.9 fl (80.0-96.0); PLATELET COUNT, AUTOMATED 198 k/mm3 (150-450); RED CELL DISTRIBUTION WIDTH 14.2 % (11.5-14.5); WHITE BLOOD COUNT 16.4 K/mm3 (4.0-10.0)
[2016-05-14 18:34] LABS: CALCIUM LEVEL 6.9 MG/DL (8.8-10.2); CREATININE FOR GFR 1.32 MG/DL (0.70-1.30); GLOMERULAR FILTRATION RATE 58.7 (>49)
[2016-05-14 19:12] LABS: BANDS 44 % (< 11)
[2016-05-14] MEDS: PANTOPRAZOLE 40MG INJ (PROTONIX) (C9113) IV SCH (19:21)
[2016-05-14] MEDS: HumaLOG INSULIN (NovoLOG) PER UNIT SC SCH ×2 (19:21→23:50)
[2016-05-14] MEDS: LR 1,000 ML IV SCH ×2 (19:22→21:40)
[2016-05-14] MEDS: MORPHINE 2 MG/ML 1ML SYRINGE IV PRN ×2 (19:23→21:41)
--- NOTE | 2016-05-14 20:36 | ECGEPIP ---
Stationary ECG Study [facility] - ED Test Date: 2016-05-14 Pat Name: ANA MARÍA JEFFERY JR Department: Room: - Gender: M Permit Specialist: : 1955 Requested By: ANASTASIA Willis PA-C Order Number: [id number] Reading MD: Kassandra Chaudhary Measurements Intervals [place] Rate: 85 P: 48 [place]: 163 QRS: 2 QRSD: 85 T: 30 QT: 390 QTc: 466 Interpretive Statements SINUS RHYTHM NONSPECIFIC T-WAVE ABNORMALITY Electronically Signed On 05-14-2016 20:36:21 EST by Kassandra Chaudhary
[2016-05-14] MEDS: PIPERACILLIN/TAZOBACTAM SOD 3.375 GM in D5W MINI-BAG PLUS 50 ML IV SCH (20:53)
[2016-05-14] MEDS: KETOROLAC 30 MG/ML VIAL (J1885) IV PRN (23:49)
[2016-05-14] MEDS: ENOXAPARIN 40 MG/0.4 ML SYRINGE (J1650) SC SCH (23:50)
[2016-05-15] VITALS (14 sets, daily range): BP systolic 90–146; BP diastolic 54–84
[2016-05-15] MEDS: MORPHINE 2 MG/ML 1ML SYRINGE IV PRN ×5 (02:17→19:28)
[2016-05-15] MEDS: PIPERACILLIN/TAZOBACTAM SOD 3.375 GM in D5W MINI-BAG PLUS 50 ML IV SCH ×4 (02:59→21:53)
[2016-05-15] MEDS: LR 1,000 ML IV SCH ×2 (04:11→13:18)
[2016-05-15] MEDS: HumaLOG INSULIN (NovoLOG) PER UNIT SC SCH ×3 (06:00→17:54)
[2016-05-15 06:23] LABS: MEAN CORPUSCULAR HEMOGLOBIN 31.5 pg (27.0-33.0); MEAN CORPUSCULAR HGB CONC 34.4 g/dl (32.0-36.5); MEAN CORPUSCULAR VOLUME 91.3 fl (80.0-96.0); PLATELET COUNT, AUTOMATED 183 k/mm3 (150-450); RED CELL DISTRIBUTION WIDTH 14.2 % (11.5-14.5)
[2016-05-15 06:25] LABS: ALKALINE PHOSPHATASE 68 U/L (45-117); ALT/SGPT 21 U/L (12-78); ANION GAP 10 MEQ/L (8-16); AST/SGOT 21 U/L (15-37); BLOOD UREA NITROGEN 23 MG/DL (7-18); CALCIUM LEVEL 7.5 MG/DL (8.8-10.2); CARBON DIOXIDE LEVEL 24 MEQ/L (21-32); CHLORIDE LEVEL 106 MEQ/L (98-107); CREATININE FOR GFR 0.95 MG/DL (0.70-1.30); GLOMERULAR FILTRATION RATE > 60.0 (>49); GLUCOSE, FASTING 110 MG/DL (80-110); POTASSIUM SERUM 3.5 MEQ/L (3.5-5.1); SODIUM LEVEL 140 MEQ/L (136-145)
[2016-05-15 06:38] LABS: ALBUMIN/GLOBULIN RATIO 0.81 (1.00-1.93)
[2016-05-15 06:46] LABS: ALBUMIN 2.5 GM/DL (3.2-5.2); BILIRUBIN,TOTAL 0.6 MG/DL (0.2-1.0); TOTAL PROTEIN 5.6 GM/DL (6.4-8.2)
[2016-05-15 06:59] LABS: BANDS 1 % (< 11); EOSINOPHILS 1 % (0-5)
[2016-05-15] MEDS: LEVOTHYROXINE 100 MCG (0.1MG) VIAL IV SCH (09:13)
[2016-05-15] MEDS: PANTOPRAZOLE 40MG INJ (PROTONIX) (C9113) IV SCH (09:13)
[2016-05-15] MEDS: KETOROLAC 30 MG/ML VIAL (J1885) IV PRN (10:42)
--- NOTE | 2016-05-15 10:44 | IPNPDOC ---
Date of Service/Time 05/15/16 Progress Note SUBJECTIVE: The patient tells me he is feeling quite well he has pain in his belly when I removed when he is lying still he feels quite good denies chest pain shortness of breath nausea vomiting fevers or chills OBJECTIVE: PHYSICAL EXAMINATION: VITAL SIGNS: Hemodynamically stable Please see below. GENERAL: [Somewhat disheveled man sitting up in bed he is quite pleasant he does not appear to be in any acute distress whatsoever] HEENT: [Pupils equal round reactive to light he has moist mucous membranes elevation central venous pressure] CARDIOVASCULAR: 1 S2 regular. RESPIRATORY: Clear to auscultation. ABDOMINAL:New ostomy Is in place abdominal dressing is clean dry and intact EXTREMITIES: [No clubbing cyanosis or edema] LABORATORY DATA: Renal function has returned to baseline downtrending lactic acid persistent leukocytosis with decreased bandemia Please see below. MICROBIOLOGY: Blood cultures pending urine culture positive for lactobacillus Please see below. IMAGING: [No new imaging] DVT prophylaxis ordered?: [Lovenox] ASSESSMENT AND PLAN: This is a [60]-year-old man with perforated viscus. PROBLEMS: 1. Perforated viscus: Status post operative repair management as per general surgery the patient appears remarkably improved following his surgical procedure. Patient is on empiric Zosyn would continue. The patient's bandemia has resolved leukocytosis persists 2. Lactic acidosis resolving likely secondary to hypotension related to perforation continue lactated Ringer's at 125 3. Acute kidney injury: Prerenal azotemia secondary to hypotension resolving with improved hemodynamics following operative repair continue his lactated Ringer's at 125 4. Insulin-dependent diabetes patient is off of metformin currently on insulin every 6 hours while he is nothing by mouth finger 6 uncontrolled 5. Hypothyroidism: Continue levothyroxine 6. Lactobacillus positive urine culture: Likely unrelated to his presentation and contaminant would not treat however the patient is on Zosyn already 7. GI prophylaxis the patient is on Protonix Thank you for involving us in this interesting patient's care we will continue to follow along with you please call us with any specific questions VS, I&O, 24H, Fishbone VS, I&O, 24H, Fishbone Vital Signs Date Time Temp Pulse Resp B/P Pulse Ox O2 Delivery O2 Flow Rate FiO2 05/15/16 09:14 22 05/15/16 08:00 Nasal Cannula 4.0 05/15/16 08:00 97.9 72 141/74 95 120/70 05/14/16 17:15 100 I&O- Last 24 Hours up to 6 AM 05/15/16 06:00 Intake Total 4700 ml Output Total 2500 ml Balance 2200 ml Laboratory Tests 2 05/14/16 11:36: Activated Partial Thromboplast Time 25.4L, Prothromb Time International Ratio 1.20, Prothrombin Time 15.3H 05/14/16 11:51: Arterial Blood pH 7.386, Arterial Blood Partial Pressure CO2 33.1L, Arterial Blood Partial Pressure O2 61.7L, Arterial Blood Total CO2 20.4L, Arterial Blood HCO3 19.4L, Arterial Blood Base Excess -4.6L, Arterial Blood Oxygen Saturation 91.4L, Blood Gas Bicarbonate Standard 20.6L, Oxygen Delivery Device NASAL REBECA 05/14/16 12:56: Urine Amorphous Sediment , Urine Appearance HAZY, Urine Color YELLOW, Urine pH 5.0, Urine Specific [place] 1.015, Urine Protein NEGATIVE, Urine Glucose (UA) NEGATIVE, Urine Ketones NEGATIVE, Urine Urobilinogen 0.2, Urine Bilirubin NEGATIVE, Urine Leukocyte Esterase NEGATIVE, Urine Bacteria (Auto) 1+H, Urine Blood 1+H, Urine Calcium Carbonate Cryst(Auto) , Urine Calcium Oxalate Cryst ( Auto) , Urine Calcium Phosphate Ambar (Auto) , Urine Cellular Casts , Urine Cystine Crystals , Urine Granular Casts (Auto) 11, Urine Hyaline Casts (Auto) 8 , Urine Leucine Crystals , Urine Mucus (Auto) SMALL, Urine Nitrite NEGATIVE, Urine Oval Fat Bodies (Auto) , Urine RBC (Auto) 5H, Urine Renal Epithelial Cells , Urine Sperm (Auto) , Urine Squamous Epithelial Cells 1, Urine Transitional Epithelial Cells , Urine Trichomonas (Auto) , Urine Triple Phosphate Cryst (Auto) , Urine Tyrosine Crystals , Urine Uric Acid Crystals ( Auto) , Urine WBC (Auto) 8H, Urine Waxy Casts (Auto) , Urine Yeast-Like Cells ( Auto) 05/14/16 18:00: Anion Gap 12, Atypical Lymphocytes 2, Band Neutrophils 44H, Blood Urea Nitrogen 32H, Creatinine 1.32H, Sodium Level 135L, Potassium Level 4.0, Chloride Level 102, Carbon Dioxide Level 21, Calcium Level 6.9#L, Glomerular Filtration Rate 58.7, Lactic Acid Level 3.2*H, Lymphocytes (Manual) 1L, Metamyelocytes 5H, Monocytes (Manual) 3, Neutrophils 45, Platelet Estimate NORMAL 05/14/16 19:15: Bedside Glucose (Misc Panel) 143H 05/14/16 23:45: Bedside Glucose (Misc Panel) 102 05/15/16 05:52: Blood Urea Nitrogen 23H, Creatinine 0.95, Sodium Level 140, Potassium Level 3.5 , Chloride Level 106, Carbon Dioxide Level 24, Calcium Level 7.5L, Aspartate Amino Transf (AST/SGOT) 21, Alanine Aminotransferase (ALT/SGPT) 21, Alkaline Phosphatase 68, Total Bilirubin 0.6#, Total Protein 5.6#L, Albumin 2.5#L, Albumin/Globulin Ratio 0.81L, Anion Gap 10, Band Neutrophils 1, White Blood Count 14.0H, Red Blood Count 4.21L, Hemoglobin 13.2L, Hematocrit 38.4L, Mean Corpuscular Volume 91.3, Mean Corpuscular Hemoglobin 31.5, Mean Corpuscular Hemoglobin Concent 34.4, Red Cell Distribution Width 14.2, Platelet Count 183, Neutrophils (%) (Auto) , Lymphocytes (%) (Auto) , Monocytes (%) (Auto) , Eosinophils (%) (Auto) , Basophils (%) (Auto) , Neutrophils # (Auto) , Lymphocytes # (Auto) , Monocytes # (Auto) , Eosinophils # (Auto) , Basophils # ( Auto) , Eosinophils (Manual) 1, Glomerular Filtration Rate > 60.0, Large Unclassified Cells # , Large Unclassified Cells % , Lymphocytes (Manual) 15L, Neutrophils 83H, Platelet Estimate NORMAL, Red Blood Cell Morphology NORMAL 05/15/16 05:56: Bedside Glucose (Misc Panel) 99 05/15/16 06:28: Lactic Acid Level 1.3 Laboratory Tests 05/14/16 18:00 Calcium Level 6.9 #L, Red Blood Count 4.40, Mean Corpuscular Volume 91.9, Mean Corpuscular Hemoglobin 30.6, Mean Corpuscular Hemoglobin Concent 33.3, Red Cell Distribution Width 14.2 05/15/16 05:52 Calcium Level 7.5 L, Red Blood Count 4.21 L, Mean Corpuscular Volume 91.3, Mean Corpuscular Hemoglobin 31.5, Mean Corpuscular Hemoglobin Concent 34.4, Red Cell Distribution Width 14.2, Aspartate Amino Transf (AST/SGOT) 21, Alanine Aminotransferase (ALT/SGPT) 21, Alkaline Phosphatase 68, Total Bilirubin 0.6 #, Total Protein 5.6 #L, Albumin 2.5 #L, Neutrophils (%) (Auto) , Lymphocytes (%) ( Auto) , Monocytes (%) (Auto) , Eosinophils (%) (Auto) , Basophils (%) (Auto) , Neutrophils # (Auto) , Lymphocytes # (Auto) , Monocytes # (Auto) , Eosinophils # (Auto) , Basophils # (Auto) Microbiology 05/14/16 Blood Culture, Received Pending 05/14/16 Blood Culture - Preliminary, Resulted No growth after 24 hours . All specim... 05/14/16 MRSA Screen, Received Pending 05/14/16 Urine Culture - Final, Complete Lactobacillus Species CARLA CARROLL MD May 15, 2016 10:44
[2016-05-16] VITALS (10 sets, daily range): BP systolic 132–161; BP diastolic 69–93
[2016-05-16] MEDS: ENOXAPARIN 40 MG/0.4 ML SYRINGE (J1650) SC SCH (00:25)
[2016-05-16] MEDS: MORPHINE 2 MG/ML 1ML SYRINGE IV PRN ×2 (00:25→22:15)
[2016-05-16] MEDS: PIPERACILLIN/TAZOBACTAM SOD 3.375 GM in D5W MINI-BAG PLUS 50 ML IV SCH ×4 (03:17→21:11)
[2016-05-16] MEDS: HumaLOG INSULIN (NovoLOG) PER UNIT SC SCH ×3 (06:00→12:00)
[2016-05-16 07:32] LABS: ANION GAP 10 MEQ/L (8-16); BLOOD UREA NITROGEN 20 MG/DL (7-18); CALCIUM LEVEL 7.9 MG/DL (8.8-10.2); CARBON DIOXIDE LEVEL 25 MEQ/L (21-32); CHLORIDE LEVEL 106 MEQ/L (98-107); CREATININE FOR GFR 0.69 MG/DL (0.70-1.30); GLOMERULAR FILTRATION RATE > 60.0 (>49); GLUCOSE, FASTING 82 MG/DL (80-110); POTASSIUM SERUM 3.7 MEQ/L (3.5-5.1); SODIUM LEVEL 141 MEQ/L (136-145)
[2016-05-16] MEDS: PANTOPRAZOLE 40MG INJ (PROTONIX) (C9113) IV SCH (08:10)
[2016-05-16] MEDS: LR 1,000 ML IV SCH ×2 (08:10→22:07)
[2016-05-16] MEDS: LEVOTHYROXINE 100 MCG (0.1MG) VIAL IV SCH (08:11)
--- NOTE | 2016-05-16 08:35 | IPNPDOC ---
Date of Service/Time 05/16/16 Progress Note SUBJECTIVE: Patient has no complaints she tells me that there is not much coming out of his ostomy other than a small amount of blood OBJECTIVE: PHYSICAL EXAMINATION: VITAL SIGNS: Hemodynamically stable Please see below. GENERAL: Somewhat disheveled man sitting up in bed he is quite pleasant he does not appear to be in any acute distress HEENT: Pupils equal round reactive to light he has moist mucous membranes elevation central venous pressure CARDIOVASCULAR: 1 S2 regular. RESPIRATORY: Clear to auscultation. ABDOMINAL:New ostomy Is in place abdominal dressing is clean dry and intact EXTREMITIES: No clubbing cyanosis or edema LABORATORY DATA: Patient had a basic metabolic panel drawn today which is fairly unremarkable no CBC otherwise Please see below. MICROBIOLOGY: Blood cultures negative, urine culture positive for lactobacillus Please see below. IMAGING: No new imaging DVT prophylaxis ordered?: Lovenox ASSESSMENT AND PLAN: This is a 60-year-old man with perforated viscus. PROBLEMS: 1. Perforated viscus: Status post operative repair, management as per general surgery. Patient is on empiric Zosyn. 2. Lactic acidosis resolved 3. Acute kidney injury: Resolved 4. Insulin-dependent diabetes patient is off of metformin currently on insulin every 6 hours while he is nothing by mouth finger 6 uncontrolled 5. Hypothyroidism: Continue IV levothyroxine 6. Lactobacillus positive urine culture: Likely unrelated to his presentation and contaminant would not treat however the patient is on Zosyn already 7. GI prophylaxis the patient is on Protonix Thank you for involving us in this interesting patient's care we will continue to follow along with you please call us with any specific questions VS, I&O, 24H, Silvia VS, I&O, 24H, Silvia Vital Signs Date Time Temp Pulse Resp B/P Pulse Ox O2 Delivery O2 Flow Rate FiO2 05/16/16 06:00 73 143/78 96 Nasal Cannula 3.0 05/16/16 04:00 97.0 17 05/14/16 17:15 100 I&O- Last 24 Hours up to 6 AM 05/16/16 06:00 Intake Total 1950 ml Output Total 2250 ml Balance -300 ml Laboratory Tests 2 05/15/16 11:35: Bedside Glucose (Misc Panel) 95 05/15/16 17:35: Bedside Glucose (Misc Panel) 92 05/16/16 00:17: Bedside Glucose (Misc Panel) 84 05/16/16 05:57: Bedside Glucose (Misc Panel) 75L 05/16/16 06:49: Anion Gap 10, Blood Urea Nitrogen 20H, Creatinine 0.69L, Sodium Level 141, Potassium Level 3.7, Chloride Level 106, Carbon Dioxide Level 25, Calcium Level 7.9L, Glomerular Filtration Rate > 60.0 Laboratory Tests 05/16/16 06:49 Calcium Level 7.9 L Microbiology 05/14/16 Blood Culture - Preliminary, Resulted No growth after 24 hours . All specim... 05/14/16 Blood Culture - Preliminary, Resulted No growth after 24 hours . All specim... 05/14/16 MRSA Screen - Final, Complete 05/14/16 Urine Culture - Final, Complete Lactobacillus Species CARLA CARROLL MD May 16, 2016 08:35
[2016-05-16] MEDS: KETOROLAC 30 MG/ML VIAL (J1885) IV PRN ×2 (12:29→21:11)
--- NOTE | 2016-05-16 15:03 | EDDOCDS ---
Nurse's Notes [facility] Name: Darrian Sim Jr Age: 60 yrs Sex: Male : 1955 Arrival Date: 05/14/2016 Time: 08:51 Bed 10 Private MD: Diagnosis: Perforation of intestine (nontraumatic);Hypotension;Generalized abdominal pain;Nausea with vomiting, unspecified;Sepsis, unspecified organism;Acute kidney failure, unspecified Presentation: 05/14 09:14 Presenting complaint: Patient states: lower abdominal pain and pressure for the last 2 dy days. no BM for 2-3 days. sipping at water since yesterday due to vomiting yesterday. concerned about dehydration. Adult Sepsis Screening: The patient does not have new or worsening altered mentation. Patient's respiratory rate is less than 22. Systolic blood pressure is less than or equal to 100 (1 point). Patient has a qSOFA score of 1- Negative Sepsis Screen. Suicide/Homicide risk assessment- the patient denies having any suicidal and/or homicidal ideations and does not present with any other emotional, behavioral or mental health complaints. Status: Patient is not a residential service technician or dependent. Transition of care: patient was not received from another setting of care. 09:14 Acuity: ONUR Level 3 dy 09:14 Method Of Arrival: Wheelchair dy Triage Assessment: 09:18 General: Appears in no apparent distress. Pain: Location: right lower quadrant and left dy lower quadrant. HIV screening NA for this visit Offered previously. GI: Reports lower abdominal pain. Historical: - Allergies: PENICILLINS (Hives); Codeine Sulfaterestless; - Home Meds: 1. aspirin 81 mg Oral tab 1 tab once daily 2. metformin 500 mg Oral tab 1 tab 2 times per day 3. Omeprazole Unknown Oral 1 cap once daily (Last dose: 05/14/2016 07:00) 4. oxycodone 5 mg Oral tab 1 cap every 6 hours 5. Synthroid Oral Unknown once daily - PMHx: Diabetes - NIDDM: controlled; GERD; Hypercholesterolemia; Hypothyroidism; - PSHx: right hip replacement; - Social history: Smoking status: Patient uses tobacco products, heavy tobacco smoker. No barriers to communication noted, The patient speaks fluent [place], Speaks appropriately for age. - Family history: Not pertinent. - : The pt / caregiver states he / she is not on anticoagulants. Home medication list is obtained from the patient. - Exposure Risk Screening:: None identified. Screenin:36 Screening information is obtained from the patient. Fall risk: No risks identified. pml Assistance ADL's: requires no assistance with activities of daily living. Abuse/DV Screen: The patient / caregiver reports he/she is: not in a situation that causes fear, pain or injury. Nutritional screening: No deficits noted. Advance Directives: Currently, there is no health care proxy. home support is adequate. Assessment: 10:36 General: Appears uncomfortable, Behavior is appropriate for age, cooperative. Pain: pml Location: right lower quadrant and left lower quadrant Pain currently is 10 out of 10 on a pain scale. Neurological: Level of Consciousness is awake, alert, Oriented to person, place, time. Cardiovascular: Capillary refill < 3 seconds Rhythm is sinus rhythm No ectopy. Respiratory: Airway is patent Respiratory effort is even, unlabored, Respiratory pattern is regular, symmetrical. GI: Abdomen is distended, Bowel sounds hypoactive in right lower quadrant and left lower quadrant Abd is tender to palpation in right lower quadrant and left lower quadrant Abd is rigid X 4 quads. GI: Reports constipation, nausea, vomiting, intolerance of food. Derm: Skin is pink, warm & dry. 11:38 General: resting on stretcher, resps easy and unlabored, skin p/w/d. sinus rhythm on pml monitor. reports pain is much improved 5/10. . 12:10 Adult Sepsis Screening: Accepted Exclusions- The Sepsis Protocol has been ordered by pml the Provider. 12:56 General: Appears in no apparent distress, Behavior is appropriate for age, cooperative. pml Pain: Location: left lower quadrant and right lower quadrant Pain currently is 5 out of 10 on a pain scale. Neurological: Level of Consciousness is awake, alert, Oriented to person, place, none. Cardiovascular: Capillary refill < 3 seconds Rhythm is sinus rhythm No ectopy. Respiratory: Airway is patent Respiratory effort is even, unlabored. GI: Abdomen is distended. : Pulido in place to gravity drainage Urine is concentrated. Derm: Skin is pink, warm & dry. 14:00 General: Appears in no apparent distress, Behavior is appropriate for age, cooperative. pml Pain: Location: left lower quadrant and right lower quadrant Pain currently is 5 out of 10 on a pain scale. Neurological: Level of Consciousness is awake, alert, Oriented to person, place, time. Cardiovascular: Capillary refill < 3 seconds. Respiratory: Airway is patent Respiratory effort is even, unlabored. GI: Abdomen is distended. Derm: Skin is pink, warm & dry. Vital Signs: 09:13 BP 83 / 55; Pulse 88; Resp 16; Temp 95.3(O); Pulse Ox 96% ; Weight 70.31 kg (R); Height dy 5 ft. 7 in. (170.18 cm) (R); 10:04 BP 85 / 54 LA Sitting (man/reg); jrd 10:25 BP 91 / 53 (auto/); pml 10:28 Pulse 88 MON; Pulse Ox 88% ; pml 10:40 Pulse 84 MON; Pulse Ox 93% ; pml 10:40 BP 102 / 71 (auto/); pml 10:55 BP 98 / 54 (auto/); pml 10:56 Pulse 86 MON; Pulse Ox 74% ; pml 11:04 Pain 5/10; pml 11:10 Pulse 86 MON; Pulse Ox 92% ; pml 11:10 BP 103 / 62 (auto/); pml 11:25 Pulse 82 MON; Pulse Ox 93% ; pml 11:25 BP 105 / 63 (auto/); pml 11:40 BP 104 / 66 (auto/); pml 11:41 Pulse 84 MON; Pulse Ox 92% ; pml 11:55 BP 102 / 67 (auto/); pml 11:56 Pulse 84 MON; Pulse Ox 94% ; pml 12:18 BP 99 / 65 (auto/); pml 12:18 Pulse 84 MON; Pulse Ox 94% ; pml 12:25 BP 85 / 50 (auto/); pml 12:25 Pulse 84 MON; Pulse Ox 100% ; pml 12:37 BP 114 / 71 (auto/); pml 12:38 Pulse 88 MON; Pulse Ox 90% ; pml 12:40 BP 98 / 55 (auto/); pml 12:41 Pulse 92 MON; pml 12:55 Pulse 86 MON; Pulse Ox 94% ; pml 12:55 BP 94 / 59 (auto/); pml 13:10 Pulse 86 MON; Pulse Ox 90% ; pml 13:10 BP 101 / 63 (auto/); pml 13:25 Pulse 90 MON; Pulse Ox 96% ; pml 13:25 BP 105 / 51 (auto/); pml 13:42 Pulse 88 MON; Pulse Ox 94% ; pml 13:42 BP 105 / 64 (auto/); pml 14:01 BP 105 / 65; Pulse 87; Resp 18; Temp 99.3(TE); Pulse Ox 94% on 2 lpm NC; Pain 4/10; pml 09:13 Body Mass Index 24.28 (70.31 kg, 170.18 cm) dy Vitals: 09:13 Log In Time: May 14, 2016 at 08:51. dy ED Course: 08:53 Patient visited by Manny Barriga, Reg. pm4 08:53 Patient moved to Waiting pm4 09:15 Triage Initiated dy 09:21 Patient moved to Pre RCE dy 09:38 Patient moved to Triage 3 jrd 09:41 Minerva Palmer PA-C is PHCP. dt4 09:41 Pito Flood MD is Attending Physician. dt4 09:41 Patient visited by Minerva Palmer PA-C. dt4 09:57 Patient moved to I2 / M2 dwg 10:05 Patient visited by Octavio Moeller PCA. jrd 10:24 Francy Walsh,RN is Primary Nurse. ml6 10:24 Patient moved to 10 ml6 10:26 Lactic Acid (Lara tube on ice) Sent. jo3 10:26 Liver Profile Sent. jo3 10:26 Lipase Sent. jo3 10:26 CBC with Diff Sent. jo3 10:26 Basic Metabolic Profile Sent. jo3 10:26 Amylase Sent. jo3 10:26 Inserted saline lock: 18 gauge in left antecubital area. Labs drawn. (by ED staff). jo3 Sent per order to lab. Labs/Blood culture drawn. 10:36 Primary Nurse role handed off by Francy Walsh,RN jmb 10:36 The patient / caregiver is instructed regarding the plan of care and ED course. Patient pml has correct armband on for positive identification. Placed in gown. Bed in low position. Call light in reach. Side rails up X2. youth nutritional monitor on. Pulse ox on. NIBP on. 10:38 Patient visited by Shaila Theodore,CARLITA. pml 10:51 [facility] Payment Agreement was scanned into [employer] and attached to record. pm4 10:55 Patient name changed from [place]\S\L\S\Sim\S\ to Darrian\S\L\S\Sim Jr. EDMS 11:20 Inserted peripheral IV: 18gauge IV in right antecubital area and blood collected. pml Patient tolerated the procedure well. No procedures done that require assistance. 11:33 Patient visited by Kehinde Glaser PCA. jlf 11:40 Patient visited by Shaila Theodore,CARLITA. pml 11:42 EKG done. (by ED staff). Reviewed by Minerva Palmer PA-C. jlf 11:44 Patient visited by Kehinde Glaser PCA. jlf 11:44 Patient visited by Kehinde Glaser PCA. jlf 11:54 -Arterial Blood Gas Sent. cs15 12:11 Patient visited by Shaila Theodore RN. pml 12:39 Abdomen, Flat\E\Upright,PA Chest Returned. EDMS 12:44 Paul Hong is Hospitalizing Provider. dt4 12:45 Pulido cath inserted 16 Fr. Balloon inflated. To gravity drainage. Urine specimen pml collected. 12:47 Patient visited by Kehinde Glaser PCA. jlf 12:58 Patient visited by Shaila Theodore,CARLITA. pml 13:20 CT ABD & PELVIS: Oral Contrast Only Returned. EDMS 15:16 T-Sheet-- Draft Copy was scanned into [employer] and attached to record. gb 15:16 ECG/EKG was scanned into [employer] and attached to record. gb Administered Medications: 10:30 Drug: Diatrizoate Meglumine & Sodium 10 ml [diatrizoate meglumine and diat.sodium 66 jo3 %-10 % oral solution (10 mL)] Route: PO; 10:36 Drug: NS 0.9% 1000 ml [sodium chloride 0.9 % injection solution] Route: IV; Rate: pml bolus; Site: left antecubital; 11:42 Follow up: IV Status: Infusion continued pml 10:36 Drug: Ondansetron 4 mg [ondansetron HCl 2 mg/mL intravenous solution (2 mL)] Route: pml IVP; Site: left antecubital; 10:36 Drug: morphine 4 mg [morphine 4 mg/mL intravenous cartridge (1 mL)] Route: IVP; Site: pml left antecubital; 11:04 Follow up: Pain 5/10 Adult; Response: Pain is decreased pml 11:04 Drug: Diatrizoate Meglumine & Sodium 10 ml [diatrizoate meglumine and diat.sodium 66 pml %-10 % oral solution (10 mL)] Route: PO; 11:42 Not Given (Duplicate Order): NS 0.9% 1000 ml IV at bolus once pml 11:42 Drug: NS 0.9% (Sepsis- hypotension or lactate >4mmol/L, 30ml/kg) 2200 ml [sodium pml chloride 0.9 % injection solution] Route: IV; Rate: bolus; Site: right antecubital; 14:01 Follow up: IV Status: Infusion continued upon admit; IV Intake: 1500ml pml 11:56 Drug: Cefepime 2 grams [cefepime 1 gram solution for injection] Route: IVPB; Rate: 100 pml mL/hr; Infused Over: 30 mins; Site: right antecubital; 13:19 Follow up: IV Status: Completed infusion; IV Intake: 100ml pml Intake: 13:19 IV: 100.00ml; Total: 100.00ml. pml 14:01 IV: 1500.00ml; Total: 1600.00ml. pml RT: 11:54 ABG's drawn from right radial artery allens test done and positive pressure held for 5 cs15 minutes no bleeding noted pressure bandage applied specimen sent pt. tolerated well. O2 via nasal cannula \T\ 2L/min. Order Results: Lab Order: Urinalysis; SPEC'M 05/14/16 12:56 Test: APPEARANCE, URINE; Value: HAZY; Range: CLEAR; Status: F Test: COLOR, URINE; Value: YELLOW; Range: YELLOW; Status: F Test: PH,URINE; Value: 5.0; Range: 5.0-9.0; Units: UNITS; Status: F Test: SPECIFIC GRAVITY URINE AUTO; Value: 1.015; Range: 1.002-1.035; Status: F Test: PROTEIN, URINE AUTO; Value: NEGATIVE; Range: NEGATIVE; Units: mg/dL; Status: F Test: GLUCOSE, URINE (UA) AUTO; Value: NEGATIVE; Range: NEGATIVE; Units: mg/dL; Status: F Test: KETONE, URINE AUTO; Value: NEGATIVE; Range: NEGATIVE; Units: mg/dL; Status: F Test: UROBILINOGEN, URINE AUTO; Value: 0.2; Range: 0.0-2.0; Units: mg/dL; Status: F Test: BILIRUBIN, URINE AUTO; Value: NEGATIVE; Range: NEGATIVE; Status: F Test: NITRITE, URINE AUTO; Value: NEGATIVE; Range: NEGATIVE; Status: F Test: LEUKOCYTE ESTERASE, URINE AUTO; Value: NEGATIVE; Range: NEGATIVE; Status: F Test: BLOOD, URINE BLOOD; Value: 1+; Range: NEGATIVE; Abnormal: Above high normal; Status: F Test: WBC, URINE AUTO; Value: 8; Range: 0-3; Abnormal: Above high normal; Units: /HPF; Status: F Test: RBC, URINE AUTO; Value: 5; Range: 0-3; Abnormal: Above high normal; Units: /HPF; Status: F Test: BACTERIA, URINE AUTO; Value: 1+; Range: NEGATIVE; Abnormal: Above high normal; Status: F Test: SQUAMOUS EPITHELIAL CELL UR AU; Value: 1; Range: 0-6; Units: /HPF; Status: F Test: MUCUS, URINE; Value: SMALL; Range: NEGATIVE; Status: F Test: HYALINE CAST, URINE AUTO; Value: 8; Range: 0-1; Units: /LPF; Status: F Test: GRANULAR CAST, URINE AUTO; Value: 11; Range: NONE; Units: /LPF; Status: F Lab Order: Amylase; [facility] 05/14/16 10:21 Test: AMYLASE; Value: 28; Range: 25-115; Units: U/L; Status: F Lab Order: Basic Metabolic Profile; [facility] 05/14/16 10:21 Test: GLUCOSE, FASTING; Value: 146; Range: 80-110; Abnormal: Above high normal; Units: MG/DL; Status: F Test: BLOOD UREA NITROGEN; Value: 34; Range: 7-18; Abnormal: Above high normal; Units: MG/DL; Status: F Test: CREATININE FOR GFR; Value: 2.31; Range: 0.70-1.30; Abnormal: Above high normal; Units: MG/DL; Status: F Test: GLOMERULAR FILTRATION RATE; Value: 30.8; Range: >49; Abnormal: Below low normal; Status: F Test: SODIUM LEVEL; Value: 138; Range: 136-145; Units: MEQ/L; Status: F Test: POTASSIUM SERUM; Value: 3.7; Range: 3.5-5.1; Units: MEQ/L; Status: F Test: CHLORIDE LEVEL; Value: 96; Range: 98-107; Abnormal: Below low normal; Units: MEQ/L; Status: F Test: CARBON DIOXIDE LEVEL; Value: 22; Range: 21-32; Units: MEQ/L; Status: F Test: ANION GAP; Value: 20; Range: 8-16; Abnormal: Above high normal; Units: MEQ/L; Status: F Test: CALCIUM LEVEL; Value: 8.5; Range: 8.8-10.2; Abnormal: Below low normal; Units: MG/DL; Status: F Test Note: ; Units are mL/min/1.73 m2 Chronic Kidney Disease Staging per NKF: Stage I & II GFR >=60 Normal to Mildly Decreased Stage III GFR 30-59 Moderately Decreased Stage IV GFR 15-29 Severely Decreased Stage V GFR <15 Very Little GFR Left 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 Lab Order: CBC with Diff; SPEC'M 05/14/16 10:21 Test: WHITE BLOOD COUNT; Value: 13.6; Range: 4.0-10.0; Abnormal: Above high normal; Units: K/mm3; Status: F Test: RED BLOOD COUNT; Value: 5.26; Range: 4.30-6.10; Units: M/mm3; Status: F Test: HEMOGLOBIN; Value: 16.8; Range: 14.0-18.0; Units: g/dl; Status: F Test: HEMATOCRIT; Value: 49.2; Range: 42.0-52.0; Units: %; Status: F Test: MEAN CORPUSCULAR VOLUME; Value: 93.4; Range: 80.0-96.0; Units: fl; Status: F Test: MEAN CORPUSCULAR HEMOGLOBIN; Value: 31.8; Range: 27.0-33.0; Units: pg; Status: F Test: MEAN CORPUSCULAR HGB CONC; Value: 34.1; Range: 32.0-36.5; Units: g/dl; Status: F Test: RED CELL DISTRIBUTION WIDTH; Value: 14.2; Range: 11.5-14.5; Units: %; Status: F Test: PLATELET COUNT, AUTOMATED; Value: 240; Range: 150-450; Units: k/mm3; Status: F Test: NEUTROPHILS; Value: 93; Range: 35-75; Abnormal: Above high normal; Units: %; Status: F Test: LYMPHOCYTES; Value: 6; Range: 16-52; Abnormal: Below low normal; Units: %; Status: F Test: MONOCYTES; Value: 1; Range: 0-8; Units: %; Status: F Test: RBC MORPHOLOGY; Value: NORMAL; Status: F Lab Order: Lipase; [facility] 05/14/16 10:21 Test: LIPASE; Value: 50; Range: 73-393; Abnormal: Below low normal; Units: U/L; Status: F Lab Order: Liver Profile; [facility] 05/14/16 10:21 Test: AST/SGOT; Value: 18; Range: 15-37; Units: U/L; Status: F Test: ALT/SGPT; Value: 20; Range: 12-78; Units: U/L; Status: F Test: ALKALINE PHOSPHATASE; Value: 97; Range: 45-117; Units: U/L; Status: F Test: BILIRUBIN,TOTAL; Value: 1.6; Range: 0.2-1.0; Abnormal: Above high normal; Units: MG/DL; Status: F Test: BILIRUBIN,DIRECT; Value: 0.4; Range: 0.0-0.2; Abnormal: Above high normal; Units: MG/DL; Status: F Test: TOTAL PROTEIN; Value: 8.0; Range: 6.4-8.2; Units: GM/DL; Status: F Test: ALBUMIN; Value: 4.2; Range: 3.2-5.2; Units: GM/DL; Status: F Test: ALBUMIN/GLOBULIN RATIO; Value: 1.11; Range: 1.00-1.93; Status: F Lab Order: CRP; [facility] 05/14/16 10:21 Test: C REACTIVE PROTEIN QUANTITATIV; Value: 21.50; Range: 0.00-0.30; Abnormal: Above high normal; Units: MG/DL; Status: F Lab Order: Lactic Acid (Lara tube on ice); [facility] 05/14/16 10:21 Test: LACTIC ACID LEVEL, LACTATE; Value: 8.5; Range: 0.4-2.0; Abnormal: Above upper panic limits; Units: MMOL/L; Status: F Lab Order: PLATELET ESTIMATE; [facility] 05/14/16 10:21 Test: PLATELET ESTIMATE; Value: NORMAL; Range: NORMAL; Status: F Lab Order: -Arterial Blood Gas; [facility] 05/14/16 11:51 Test: ABG pH (ARTERIAL); Value: 7.386; Range: 7.350-7.450; Units: UNITS; Status: F Test: ABG PARTIAL PRESSURE CO2; Value: 33.1; Range: 35.0-45.0; Abnormal: Below low normal; Units: mmHg; Status: F Test: ABG PARTIAL PRESSURE O2; Value: 61.7; Range: 75.0-100.0; Abnormal: Below low normal; Units: mmHg; Status: F Test: ABG TOTAL CO2; Value: 20.4; Range: 23.0-31.0; Abnormal: Below low normal; Units: MEQ/L; Status: F Test: ABG HCO3; Value: 19.4; Range: 22.0-26.0; Abnormal: Below low normal; Units: MEQ/L; Status: F Test: ABG BASE EXCESS; Value: -4.6; Range: -2.0-2.0; Abnormal: Below low normal; Status: F Test: ABG STANDARD HCO3; Value: 20.6; Range: 22.0-26.0; Abnormal: Below low normal; Units: MEQ/L; Status: F Test: ABG O2 SATURATION; Value: 91.4; Range: 95.0-99.0; Abnormal: Below low normal; Units: %; Status: F Test: ABG DEVICE; Value: NASAL REBECA; Status: F Lab Order: PT/INR; [facility] 05/14/16 11:36 Test: PROTHROMBIN TIME; Value: 15.3; Range: 12.3-14.5; Abnormal: Above high normal; Units: SECONDS; Status: F Test: INR; Value: 1.20; Status: F Test Note: ; THERAPUTIC HUMAN INR VALUES INDICATIONS NORMAL RANGES PROPHYLAXIS/TREATMENT OF: VENOUS THROMBOSIS 2.0-3.0 PULMONARY EMBOLISM 2.0-3.0 PREVENTION OF SYSTEMIC EMBOLISM FROM: TISSUE HEART VALVES 2.0-3.0 ACUTE MYOCARDIAL INFARCTION 2.0-3.0 VALVULAR HEART DISEASE 2.0-3.0 ATRIAL FIBRILLATION 2.0-3.0 MECHANICAL VALVES(HIGH RISK) 2.5-3.5 RECURRENT MYOCARDIAL INFARCTION 2.5-3.5 Lab Order: PTT; [facility] 05/14/16 11:36 Test: PARTIAL THROMBOPLASTIN TIME; Value: 25.4; Range: 26.6-37.1; Abnormal: Below low normal; Units: SECONDS; Status: F Lab Order: Type & Screen; [facility] 05/14/16 11:36 Test: BLOOD TYPE; Value: A POS; Status: F Test: AB SCREEN (INDIRECT DEJA)GEL; Value: POSITIVE; Status: F Lab Order: ANTIBODY IDENTIFICATION; [facility] 05/14/16 11:36 Test: ANTIBODY IDENTIFICATION; Value: Anti-Fya; Status: F Lab Order: CBC WITH DIFFERENTIAL; [facility] 05/14/16 00:00 Test: WHITE BLOOD COUNT; Value: 16.4; Range: 4.0-10.0; Abnormal: Above high normal; Units: K/mm3; Status: F Test: RED BLOOD COUNT; Value: 4.40; Range: 4.30-6.10; Units: M/mm3; Status: F Test: HEMOGLOBIN; Value: 13.5; Range: 14.0-18.0; Units: g/dl; Status: F Test: HEMATOCRIT; Value: 40.4; Range: 42.0-52.0; Abnormal: Below low normal; Units: %; Status: F Test: MEAN CORPUSCULAR VOLUME; Value: 91.9; Range: 80.0-96.0; Units: fl; Status: F Test: MEAN CORPUSCULAR HEMOGLOBIN; Value: 30.6; Range: 27.0-33.0; Units: pg; Status: F Test: MEAN CORPUSCULAR HGB CONC; Value: 33.3; Range: 32.0-36.5; Units: g/dl; Status: F Test: RED CELL DISTRIBUTION WIDTH; Value: 14.2; Range: 11.5-14.5; Units: %; Status: F Test: PLATELET COUNT, AUTOMATED; Value: 198; Range: 150-450; Units: k/mm3; Status: F Lab Order: BASIC METABOLIC PROFILE; [facility] 05/14/16 00:00 Test: GLUCOSE, FASTING; Value: 188; Range: 80-110; Abnormal: Above high normal; Units: MG/DL; Status: F Test: BLOOD UREA NITROGEN; Value: 32; Range: 7-18; Abnormal: Above high normal; Units: MG/DL; Status: F Test: CREATININE FOR GFR; Value: 1.32; Range: 0.70-1.30; Abnormal: Above high normal; Units: MG/DL; Status: F Test: GLOMERULAR FILTRATION RATE; Value: 58.7; Range: >49; Status: F Test: SODIUM LEVEL; Value: 135; Range: 136-145; Abnormal: Below low normal; Units: MEQ/L; Status: F Test: POTASSIUM SERUM; Value: 4.0; Range: 3.5-5.1; Units: MEQ/L; Status: F Test: CHLORIDE LEVEL; Value: 102; Range: 98-107; Units: MEQ/L; Status: F Test: CARBON DIOXIDE LEVEL; Value: 21; Range: 21-32; Units: MEQ/L; Status: F Test: ANION GAP; Value: 12; Range: 8-16; Units: MEQ/L; Status: F Test: CALCIUM LEVEL; Value: 6.9; Range: 8.8-10.2; Units: MG/DL; Status: F Test Note: ; Units are mL/min/1.73 m2 Chronic Kidney Disease Staging per NKF: Stage I & II GFR >=60 Normal to Mildly Decreased Stage III GFR 30-59 Moderately Decreased Stage IV GFR 15-29 Severely Decreased Stage V GFR <15 Very Little GFR Left 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 Lab Order: PLATELET ESTIMATE; SPEC'M 05/14/16 00:00 Test: PLATELET ESTIMATE; Range: NORMAL; Status: I Radiology Order: CT ABD & PELVIS: Oral Contrast Only Test: CT ABD & PELVIS: Oral Contrast Only REASON FOR EXAMINATION: Abdomen Pain; CT abdomen and pelvis performed with oral contrast only 05/14/2016; ; Indication generalized abdominal pain; ; Comparison: Abdominal series 05/14/2016 which demonstrated pneumoperitoneum; ; Technique: After drinking two cups of oral contrast each containing 10 ml; gastrographin, 3 mm continuous spiral axial sections performed through the; abdomen and pelvis; ; Findings: Extensive bullous changes/COPD is seen in the lung bases. There is; some patchy infiltrate and/or atelectatic changes or scarring in the lung bases; bilaterally and in the right middle lobe. There is a noncalcified pulmonary; nodule of 9 mm diameter in the lateral basilar segment left lower lobe on image; 15 series 204.; ; Cardiac silhouette is upper normal size three and liver spleen pancreas are; unremarkable. Gallbladder is unremarkable. Adrenal glands are normal. Kidneys; are without hydro nephrosis.; ; There is generalized ileus pattern involving the stomach, small bowel and colon.; There is abundant free intraperitoneal air, as well as some fluid within the left; sierra pelvis air-fluid level. Findings are consistent with a perforated viscus.; The exact site of viscus perforation is not identified. Atherosclerotic changes; are noted in the aorta and iliac arteries, without aneurysm. There are no; pathologically enlarged retroperitoneal nodes; ; Bladder is underdistended. Prostate is not enlarged. There is extensive sigmoid; diverticulosis. The appendix is normal. Patient has had right total hip; arthroplasty in mid there is old bilateral L5 spondylolysis with grade 1; anterolisthesis of five -1. There are advanced degenerative disc changes at this; level.; ; Impression:; ; Free intraperitoneal air seen bilaterally and diffusely consistent with; perforated viscus. The specific location of viscus perforation is not identified; yet may lie in the colon.; ; Generalized ileus pattern with gastric distension and colonic distension; primarily. Collection of air and fluid in the left sierra pelvis, best seen on; image 118 series 201, most compatible with a extraluminal collection, measuring; 6.8 by 2.4 cm; ; Patchy infiltrate and/or atelectatic changes or scarring in the lung bases; bilaterally and in the right middle lobe. There is a noncalcified pulmonary; nodule of 9 mm diameter in the lateral basilar segment left lower lobe on image; 15 series 204, for which follow up CT chest recommended.; ; ; ; Case discussed with NORBERTO Palmer in ED on 05/14/16 at 1 pm; ; ; Signed by; Sarah Salter MD 05/14/2016 01:06 P; Radiology Order: Abdomen, Flat\E\Upright,PA Chest Test: Abdomen, Flat\E\Upright,PA Chest REASON FOR EXAMINATION: Abdomen Pain; Abdominal series: Three views.; ; History: Abdominal pain.; ; Findings: Upright chest radiograph is compared with the May 15, 2015 prior; study. There is free air under the leaves of the hemidiaphragms bilaterally; consistent with pneumoperitoneum. There is some coarse plate-like atelectasis in; both lung bases. The patient is status post prior median sternotomy. Heart is; not enlarged. There are emphysematous changes in the upper lobes bilaterally; unchanged.; ; Supine and erect views of the abdomen show air fluid levels in dilated large and; small bowel loops. There is faintly opaque material in the stomach compatible; with oral CT contrast. The right hip is replaced. No obstructive lesion is; seen. Question ileus pattern. Some vascular calcification is noted. Flank; stripes are intact. Psoas margin is intact on the left, obscured on the right by; bowel gas. No bony abnormality.; ; Impression:; ; Pneumoperitoneum consistent with perforated intra-abdominal viscus. Ileus; pattern in the bowel gas with multiple air-fluid levels. Recommend abdominal and; pelvic CT study. Discoid atelectasis is seen in both lung bases.; ; Findings were discussed by telephone with the referring provider in the ER, Dr.; Flood, at the time of this dictation.; ; ; Signed by; Pradeep Barlow MD 05/14/2016 02:42 P; Outcome: 10:26 Discharge Assessment:. jo3 12:47 Decision to Hospitalize by Provider. dt4 14:02 Discharge Assessment: Patient awake, alert and oriented x 3. No cognitive and/or pml functional deficits noted. Patient verbalized understanding of disposition instructions. patient administered narcotics - yes. Patient was admitted to the hospital or transferred to another facility. 14:02 The following High Risk Discharge criteria are identified: None. Admitted to OR pml accompanied by nurse, accompanied by tech, via stretcher, with oxygen, on monitor, with chart. Condition: stable. CT Study completed. Admission hand-off: Other: bedside report in pacu . Property given to family member, son. 14:03 Patient left the ED. pml Signatures: Dispatcher [employer] EDJr Souza, RN RN Yudy Umanzor, Reg Reg Reece Douglas RN Rebekah Cano RN RN jo3 Doug Resendez RN RN ml6 Shaila Theodore RN RN pml Becker, Joshua,RN RN robert Glaser, Kehinde, CRIMINAL PROFILER CRIMINAL PROFILER jlf Minerva Palmer, PADony PA-C dt4 Octavio Moeller, CRIMINAL PROFILER CRIMINAL PROFILER jrd Girish Wynn,RT RT cs15 Manny Barriga, Reg Reg pm4 Chart Complete MTDD
--- NOTE | 2016-05-16 15:03 | EDDOCDS ---
Physician Documentation [facility] Name: Darrian Sim Jr Age: 60 yrs Sex: Male : 1955 Arrival Date: 05/14/2016 Time: 08:51 Bed 10 Private MD: Disposition: 05/14/16 12:47 Hospitalization ordered by Paul Urbina for Inpatient Admission. Preliminary diagnosis are Perforation of intestine (nontraumatic), Hypotension, Generalized abdominal pain, Nausea with vomiting, unspecified, Sepsis, unspecified organism, Acute kidney failure, unspecified. - Bed requested for Admit. - Status is Inpatient Admission. pml - Condition is Stable. - Problem is new. - Symptoms have improved. Historical: - Allergies: PENICILLINS (Hives); Codeine Sulfaterestless; - Home Meds: 1. aspirin 81 mg Oral tab 1 tab once daily 2. metformin 500 mg Oral tab 1 tab 2 times per day 3. Omeprazole Unknown Oral 1 cap once daily (Last dose: 05/14/2016 07:00) 4. oxycodone 5 mg Oral tab 1 cap every 6 hours 5. Synthroid Oral Unknown once daily - PMHx: Diabetes - NIDDM: controlled; GERD; Hypercholesterolemia; Hypothyroidism; - PSHx: right hip replacement; - Social history: Smoking status: Patient uses tobacco products, heavy tobacco smoker. No barriers to communication noted, The patient speaks fluent Indian, Speaks appropriately for age. - Family history: Not pertinent. - : The pt / caregiver states he / she is not on anticoagulants. Home medication list is obtained from the patient. - Exposure Risk Screening:: None identified. Vital Signs: 05/14 09:13 BP 83 / 55; Pulse 88; Resp 16; Temp 95.3(O); Pulse Ox 96% ; Weight 70.31 kg / 155.01 dy lbs (R); Height 5 ft. 7 in. (170.18 cm) (R); 10:04 BP 85 / 54 LA Sitting (man/reg); jrd 10:25 BP 91 / 53 (auto/); pml 10:28 Pulse 88 MON; Pulse Ox 88% ; pml 10:40 Pulse 84 MON; Pulse Ox 93% ; pml 10:40 BP 102 / 71 (auto/); pml 10:55 BP 98 / 54 (auto/); pml 10:56 Pulse 86 MON; Pulse Ox 74% ; pml 11:04 Pain 5/10; pml 11:10 Pulse 86 MON; Pulse Ox 92% ; pml 11:10 BP 103 / 62 (auto/); pml 11:25 Pulse 82 MON; Pulse Ox 93% ; pml 11:25 BP 105 / 63 (auto/); pml 11:40 BP 104 / 66 (auto/); pml 11:41 Pulse 84 MON; Pulse Ox 92% ; pml 11:55 BP 102 / 67 (auto/); pml 11:56 Pulse 84 MON; Pulse Ox 94% ; pml 12:18 BP 99 / 65 (auto/); pml 12:18 Pulse 84 MON; Pulse Ox 94% ; pml 12:25 BP 85 / 50 (auto/); pml 12:25 Pulse 84 MON; Pulse Ox 100% ; pml 12:37 BP 114 / 71 (auto/); pml 12:38 Pulse 88 MON; Pulse Ox 90% ; pml 12:40 BP 98 / 55 (auto/); pml 12:41 Pulse 92 MON; pml 12:55 Pulse 86 MON; Pulse Ox 94% ; pml 12:55 BP 94 / 59 (auto/); pml 13:10 Pulse 86 MON; Pulse Ox 90% ; pml 13:10 BP 101 / 63 (auto/); pml 13:25 Pulse 90 MON; Pulse Ox 96% ; pml 13:25 BP 105 / 51 (auto/); pml 13:42 Pulse 88 MON; Pulse Ox 94% ; pml 13:42 BP 105 / 64 (auto/); pml 14:01 BP 105 / 65; Pulse 87; Resp 18; Temp 99.3(TE); Pulse Ox 94% on 2 lpm NC; Pain 4/10; pml 09:13 Body Mass Index 24.28 (70.31 kg, 170.18 cm) dy MDM: 09:18 Urinalysis Ordered. EDMS 09:18 Urine Culture Ordered. EDMS 09:54 NS 0.9% 1000 ml IV at bolus once ordered. dt4 09:54 Ondansetron 4 mg IVP once ordered. dt4 09:54 IV Saline Lock ordered. dt4 09:54 Undress patient appropriately for examination ordered. dt4 09:54 morphine 4 mg IVP once ordered. dt4 09:55 Amylase Ordered. EDMS 09:55 Basic Metabolic Profile Ordered. EDMS 09:55 CBC with Diff Ordered. EDMS 09:55 Lipase Ordered. EDMS 09:55 Liver Profile Ordered. EDMS 09:55 CRP Ordered. EDMS 09:55 NOTHING BY MOUTH+DIET ordered. EDMS 09:55 CT ABD & PELVIS: Oral Contrast Only Ordered. EDMS 09:56 Financial registration complete. pm4 10:02 NS 0.9% 1000 ml IV at bolus once ordered. dt4 10:05 Chef Kitchen Manager ordered. dt4 10:06 -Blood Culture (Adults Only), peripheral from different site, or from device/port/PICC dt4 etc. if present ordered. 10:08 Lactic Acid (Lara tube on ice) Ordered. EDMS 10:08 -Blood Culture Ordered. EDMS 10:25 -Blood Culture (Adults Only), peripheral from different site, or from device/port/PICC lbd etc. if present complete. 10:28 BLOOD CULTURES Ordered. EDMS 10:32 Diatrizoate Meglumine & Sodium Liquid 10 ml PO once; 1st cup at 1030 ordered. jo3 10:33 Diatrizoate Meglumine & Sodium Liquid 10 ml PO once; 2nd cup at 1100 ordered. jo3 10:40 DIFFERENTIAL NO CHARGE Ordered. EDMS 10:40 PLATELET ESTIMATE Ordered. EDMS 10:51 [facility] [place] Agreement was scanned into [facility] and attached to record. pm4 11:12 Abdomen, Flat\E\Upright,PA Chest Ordered. EDMS 11:13 BED REQUEST+ADM ordered. EDMS 11:36 Call Respiratory ordered. dt4 11:36 Chef Kitchen Manager/Pulse Ox/q 15 min VS ordered. dt4 11:36 Large bore IV x 2 ordered. dt4 11:36 Oxygen at 4L/Min NC or Home dosage ordered. dt4 11:36 Intake and Output Hourly ordered. dt4 11:37 -Arterial Blood Gas Ordered. EDMS 11:37 PT/INR Ordered. EDMS 11:37 PTT Ordered. EDMS 11:37 Type & Screen Ordered. EDMS 11:37 ECG WITH READING ER PHYS+CARDIAG ordered. EDMS 11:37 Call Respiratory complete. lbd 11:39 Cefepime 2 grams IVPB at 100 mL/hr once over 30 mins; dilute in 50mL of NS or D5W dt4 ordered. 11:39 NS 0.9% (Sepsis- hypotension or lactate >4mmol/L, 30ml/kg) 2200 ml IV at bolus once; dt4 Give in 500mL aliquots, assess for rales after each, inform provider ordered. 11:42 NS 0.9% 1000 ml IV at bolus once ordered. pml 12:21 ED course: SPOKE WITH DR. RAMIREZ AT THIS TIME. ADVISED THIS PT WOULD NEED AT LEAST A dt4 HOSPITALIST CONSULT AND SURGICAL ADMISSION, OR VICE VERSA. DR. RAMIREZ IN AGREEMENT AND STATES WILL COME DOWN TO SEE THIS PT. . ED course: SPOKE WITH NURSE IN O.R. REGARDING THIS PT. ADVISED DR. URBINA IS SCRUBBED IN AT THIS TIME AND TOOK A MESSAGE REGARDING THIS PT. WILL CALL BACK OR COME DOWN WHEN ABLE. . 12:34 Pulido ordered. pml 14:09 Admission / Observation Status ordered. EDMS 14:09 NPO DIET ordered. EDMS 14:32 LACTIC ACID LEVEL, LACTATE Ordered. EDMS 15:16 T-Sheet-- Draft Copy was scanned into [facility] and attached to record. gb 15:16 ECG/EKG was scanned into [facility] and attached to record. gb 16:43 PATHOLOGY REQUEST FOR SERVICE Ordered. EDMS 17:40 CBC WITH DIFFERENTIAL Ordered. EDMS 17:40 LACTIC ACID LEVEL, LACTATE Ordered. EDMS 17:40 BASIC METABOLIC PROFILE Ordered. EDMS 18:21 DIFFERENTIAL NO CHARGE Ordered. EDMS 18:41 MRSA SCREEN Ordered. EDMS Administered Medications: 10:30 Drug: Diatrizoate Meglumine & Sodium 10 ml [diatrizoate meglumine and diat.sodium 66 jo3 %-10 % oral solution (10 mL)] Route: PO; 10:36 Drug: NS 0.9% 1000 ml [sodium chloride 0.9 % injection solution] Route: IV; Rate: pml bolus; Site: left antecubital; 11:42 Follow up: IV Status: Infusion continued pml 10:36 Drug: Ondansetron 4 mg [ondansetron HCl 2 mg/mL intravenous solution (2 mL)] Route: pml IVP; Site: left antecubital; 10:36 Drug: morphine 4 mg [morphine 4 mg/mL intravenous cartridge (1 mL)] Route: IVP; Site: pml left antecubital; 11:04 Follow up: Pain 5/10 Adult; Response: Pain is decreased pml 11:04 Drug: Diatrizoate Meglumine & Sodium 10 ml [diatrizoate meglumine and diat.sodium 66 pml %-10 % oral solution (10 mL)] Route: PO; 11:42 Not Given (Duplicate Order): NS 0.9% 1000 ml IV at bolus once pml 11:42 Drug: NS 0.9% (Sepsis- hypotension or lactate >4mmol/L, 30ml/kg) 2200 ml [sodium pml chloride 0.9 % injection solution] Route: IV; Rate: bolus; Site: right antecubital; 14:01 Follow up: IV Status: Infusion continued upon admit; IV Intake: 1500ml pml 11:56 Drug: Cefepime 2 grams [cefepime 1 gram solution for injection] Route: IVPB; Rate: 100 pml mL/hr; Infused Over: 30 mins; Site: right antecubital; 13:19 Follow up: IV Status: Completed infusion; IV Intake: 100ml pml Signatures: Dispatcher [employer] EDMS Savannah Casey, Beading Machine Operator Unit lbd Yudy Lo, Reg Reg gb Reece Huber RN RN dy Helmerci, Jennifer, RN RN jo3 Quay, Paulina, RN RN pml Tschudi, Diane, HAILEE PADony dt4 Manny Barriga, Reg Reg pm4 The chart was reviewed and I authenticate all verbal orders and agree with the evaluation and treatment provided.Corrections: (The following items were deleted from the chart) 11:41 11:36 Set up for triple lumen central Iine placement ordered. dt4 pml Attachments: 10:51 [facility] Payment Agreement pm4 15:16 T-Sheet-- Draft Copy gb 15:16 ECG/EKG gb Chart Complete MTDD
[2016-05-17] MEDS: PIPERACILLIN/TAZOBACTAM SOD 3.375 GM in D5W MINI-BAG PLUS 50 ML IV SCH ×4 (02:47→21:38)
[2016-05-17 04:00] VITALS: BP 137/78
[2016-05-17 06:00] VITALS: BP 148/71
[2016-05-17] MEDS: LR 1,000 ML IV SCH ×4 (08:43→21:38)
[2016-05-17 10:00] VITALS: BP 155/86
[2016-05-17] MEDS: PANTOPRAZOLE 40MG INJ (PROTONIX) (C9113) IV SCH (10:11)
[2016-05-17] MEDS: ENOXAPARIN 40 MG/0.4 ML SYRINGE (J1650) SC SCH (10:12)
--- NOTE | 2016-05-17 10:12 | RO ---
DATE OF PROCEDURE: 05/14/2016 PREPROCEDURE DIAGNOSIS: Perforated viscus. POSTPROCEDURE DIAGNOSIS: Perforated sigmoid diverticulitis with diffuse peritonitis. PROCEDURE PERFORMED: Exploratory laparotomy, sigmoid colectomy, oversewing of rectal stump and end descending colostomy. SURGEON: Dr. Paul Hong ANTITANK ASSAULT GUNNER: Dr. Jordan Simms ANESTHESIA: General. INDICATIONS FOR PROCEDURE: The patient is a 60-year-old man who presented to the emergency department with a 2 to 3-day history of abdominal pain. This had begun low in the abdomen and increased and spread over time. He had some abdominal distension. He presented to the emergency department where an x-ray showed significant free air beneath post both diaphragms. A CT scan was obtained, which confirmed free air with some free fluid, particularly in the pelvis and adjacent to the sigmoid colon with some sigmoid colon thickening. The patient is felt to most likely have perforated sigmoid diverticulum and is now for an exploratory laparotomy. OPERATIVE PROCEDURE: The patient had a Pulido catheter inserted in the emergency department. He was transported to the operating room. Anesthesia placed a better peripheral IV and also placed a right radial arterial line. He was placed under general endotracheal anesthesia. TEDs and sequentials were utilized. The patient's abdomen was clipped of hair and his abdomen was then prepped and draped in a sterile fashion. The abdomen was entered through a low midline incision beginning just above the umbilicus. This was deepened through the fascia and the peritoneum was opened. On opening the peritoneum, there was some turbid yellow-brown fluid released. The opening was extended through the length of the incision. There were some adhesions of the omentum to the anterior abdominal wall in the area about the umbilicus secondary to prior surgery. The incision was extended cephalad an additional 5-7 cm. Palpation revealed the small bowel to be mildly full of fluid and air but not particularly distended. The stomach was also found to be full, even distended with air. An orogastric tube, which had been placed by anesthesia, was not palpable within the stomach. Anesthesia inserted a nasogastric tube and after several attempts I was able to feel the tube within the body of stomach and gastric decompression was much improved. There were some adhesions palpable in the left midabdomen where he apparently had a gastrostomy tube many years ago. Palpation down in the pelvis revealed that the sigmoid colon was quite thickened. With further inspection, particularly down the left side of the sigmoid colon into the pelvis, a large amount of turbid fluid with some flecks of debris was released from the pelvis. This was suctioned from the pelvis and the area was then irrigated. A Bookwalter retractor was utilized to obtain better exposure. Inspection revealed that the sigmoid colon was coated with fibropurulent debris. There was some debris in the left side of the pelvis as well. Inspection for a perforation did not identify a definite perforation, though all of the inflammation seem to be centered on the sigmoid colon, and the sigmoid colon was quite thickened and appeared inflamed. The small bowel was secondarily contaminated with a small amount of exudate, but there was no evidence of perforation. Likewise, the stomach and duodenum showed no evidence of perforation and there was no bilious coloration to the abdominal fluid. There was some turbid fluid tracking up along the right side of the abdomen to below the liver and this was all irrigated later in the procedure. With the pelvis better exposed, it was evident that the patient had significant diverticulosis and his picture was most consistent with a perforated diverticulum in the face of diverticulitis. The colon was transected with a linear cutter 55 stapler roughly in the area of the junction between the descending and sigmoid colon where the colon remained supple, but still had multiple diverticula present. The sigmoid colon was then dissected free distally dividing the mesentery between clamps and ligating this tissue with 0 Vicryl ties. Dissection proceeded down to the point where the rectosigmoid seemed to have been reached and there was no further acute inflammatory change in the bowel wall. The bowel at this level was stapled with a TX60G stapler and the specimen was removed. This was sent for permanent pathology. The lower abdomen was irrigated with saline and inspected for hemostasis, which was excellent. The descending colon was mobilized by dividing its lateral attachments and also dividing some of the distal attachments of the mesentery but preserving major blood vessels. This gave adequate length for a colostomy in the left midabdomen. At this point, time was taken to irrigate the entire abdomen with copious amounts of warm saline. The appendix was noted and appeared noninflamed other than some external exudate. The remainder of the colon was somewhat full but not obviously inflamed. The small bowel was returned to the abdomen in anatomic fashion. An opening was created through the left midabdomen slightly above the level of the umbilicus working through the rectus muscle on the left. A small disk of skin was excised and the anterior fascia was incised longitudinally and the fibers of the rectus muscle were spread. The posterior fascia was opened and the opening was dilated two fingerbreadths. The end of the descending colon was delivered through the wound. Final inspection of the abdomen showed no evidence of bleeding and the irrigation had been removed. The peritoneum in the lower half of the incision was closed with a running suture of #1 Vicryl. The midline fascia was closed with interrupted simple sutures of #1 Vicryl. The skin edges were closed with surgical sebas at wide intervals to allow drainage. The midline incision was covered with a lap pad, and I then proceeded to mature the colostomy. Approximately half of the staple line was excised and a short longitudinal colotomy was carried proximally from this, opening the bowel an additional 2 cm or so. The end of the bowel was then everted by placing four corner everting sutures of #3-0 chromic. Multiple additional sutures were then placed to tack the bowel wall to the surrounding skin. This appeared to give a nice ostomy. An ostomy wafer was applied. The bag was attached. The midline incision was dressed with Adaptic and prep gauze. The patient tolerated the procedure well. He had required some low dose pressors at the beginning of the procedure and at points during the procedure, but as he was awakened these could be weaned and discontinued. He was awakened in the operating room, extubated and moved to the recovery room in stable condition. JEFFERSON
[2016-05-17] MEDS: MORPHINE 2 MG/ML 1ML SYRINGE IV PRN ×2 (10:29→21:39)
[2016-05-17] MEDS: LEVOTHYROXINE 100 MCG (0.1MG) VIAL IV SCH (11:31)
[2016-05-17 14:00] VITALS: BP 154/86
[2016-05-17 18:00] VITALS: BP 159/78
[2016-05-17 22:00] VITALS: BP 140/79
[2016-05-18] MEDS: LR 1,000 ML IV SCH
[2016-05-18] MEDS: KETOROLAC 30 MG/ML VIAL (J1885) IV PRN ×2 (00:57→19:56)
[2016-05-18 02:00] VITALS: BP 139/80
[2016-05-18] MEDS: PIPERACILLIN/TAZOBACTAM SOD 3.375 GM in D5W MINI-BAG PLUS 50 ML IV SCH ×4 (03:13→22:06)
[2016-05-18] MEDS: LEVOTHYROXINE 0.125 MG TAB (125 MCG) PO SCH (05:50)
[2016-05-18 06:00] VITALS: BP 126/70
[2016-05-18 06:29] LABS: BASO % 0.3 % (0.0-1.0); EOS # 0.4 K/mm3 (0.0-0.50); EOS % 3.6 % (0.0-3.0); LARGE UNSTAINED CELL # 0.3 K/mm3 (0.0-0.4); LARGE UNSTAINED CELL % 2.8 % (0.0-4.0); LYMPH # 1.3 K/mm3 (1.5-4.5); LYMPH % 11.3 % (24.0-44.0); MEAN CORPUSCULAR HEMOGLOBIN 30.8 pg (27.0-33.0); MEAN CORPUSCULAR HGB CONC 34.1 g/dl (32.0-36.5); MEAN CORPUSCULAR VOLUME 90.3 fl (80.0-96.0); MONO # 0.7 K/mm3 (0.0-0.8); MONO % 6.2 % (0.0-5.0); NEUTROPHILS # 8.8 K/mm3 (1.8-7.7); NEUTROPHILS % 75.8 % (36.0-66.0); PLATELET COUNT, AUTOMATED 206 k/mm3 (150-450); RED CELL DISTRIBUTION WIDTH 13.7 % (11.5-14.5); WHITE BLOOD COUNT 11.6 K/mm3 (4.0-10.0)
[2016-05-18 06:52] LABS: ALBUMIN 2.3 GM/DL (3.2-5.2); ALBUMIN/GLOBULIN RATIO 0.62 (1.00-1.93); ALKALINE PHOSPHATASE 77 U/L (45-117); ALT/SGPT 19 U/L (12-78); ANION GAP 8 MEQ/L (8-16); AST/SGOT 20 U/L (15-37); BILIRUBIN,TOTAL 0.5 MG/DL (0.2-1.0); BLOOD UREA NITROGEN 14 MG/DL (7-18); CALCIUM LEVEL 7.7 MG/DL (8.8-10.2); CARBON DIOXIDE LEVEL 26 MEQ/L (21-32); CHLORIDE LEVEL 107 MEQ/L (98-107); GLOMERULAR FILTRATION RATE > 60.0 (>49); GLUCOSE, FASTING 113 MG/DL (80-110); POTASSIUM SERUM 3.1 MEQ/L (3.5-5.1); SODIUM LEVEL 141 MEQ/L (136-145)
[2016-05-18 10:00] VITALS: BP 150/78
[2016-05-18] MEDS: DOCUSATE SODIUM 100 MG CAP PO SCH ×2 (10:34→22:05)
[2016-05-18] MEDS: POTASSIUM CHLORIDE 10 MEQ SR TABLET PO SCH ×3 (10:34→22:06)
[2016-05-18] MEDS: ENOXAPARIN 40 MG/0.4 ML SYRINGE (J1650) SC SCH (10:35)
[2016-05-18] MEDS: PANTOPRAZOLE 40MG INJ (PROTONIX) (C9113) IV SCH (10:35)
[2016-05-18 14:00] VITALS: BP 152/82
[2016-05-18 18:00] VITALS: BP 150/82
[2016-05-18 22:00] VITALS: BP 134/81
[2016-05-19 02:00] VITALS: BP 159/88
[2016-05-19] MEDS: PIPERACILLIN/TAZOBACTAM SOD 3.375 GM in D5W MINI-BAG PLUS 50 ML IV SCH ×4 (03:29→20:13)
[2016-05-19 06:00] VITALS: BP 136/78
[2016-05-19] MEDS: LEVOTHYROXINE 0.125 MG TAB (125 MCG) PO SCH (06:16)
[2016-05-19] MEDS ORDERED: IBUPROFEN 600 MG TAB PO PRN (06:30)
[2016-05-19] MEDS: DOCUSATE SODIUM 100 MG CAP PO SCH ×2 (08:51→20:13)
[2016-05-19] MEDS: ENOXAPARIN 40 MG/0.4 ML SYRINGE (J1650) SC SCH (08:51)
[2016-05-19] MEDS: PANTOPRAZOLE 40MG TAB (PROTONIX) PO SCH (08:51)
[2016-05-19 10:00] VITALS: BP 130/80
[2016-05-19 14:00] VITALS: BP 130/70
[2016-05-19] MEDS: PERCOCET 5MG/325MG TAB PO PRN (20:13)
[2016-05-19 22:00] VITALS: BP 142/87
[2016-05-20] MEDS: PIPERACILLIN/TAZOBACTAM SOD 3.375 GM in D5W MINI-BAG PLUS 50 ML IV SCH ×4 (02:35→20:04)
[2016-05-20] MEDS: LEVOTHYROXINE 0.125 MG TAB (125 MCG) PO SCH (05:33)
[2016-05-20 06:00] VITALS: BP 137/83
[2016-05-20 06:05] LABS: BASO # 0.1 K/mm3 (0.0-0.2); BASO % 0.7 % (0.0-1.0); EOS # 0.6 K/mm3 (0.0-0.50); EOS % 5.6 % (0.0-3.0); LARGE UNSTAINED CELL # 0.3 K/mm3 (0.0-0.4); LARGE UNSTAINED CELL % 2.9 % (0.0-4.0); LYMPH # 1.8 K/mm3 (1.5-4.5); LYMPH % 15.6 % (24.0-44.0); MEAN CORPUSCULAR HEMOGLOBIN 30.7 pg (27.0-33.0); MEAN CORPUSCULAR HGB CONC 33.6 g/dl (32.0-36.5); MEAN CORPUSCULAR VOLUME 91.2 fl (80.0-96.0); MONO # 0.6 K/mm3 (0.0-0.8); MONO % 5.5 % (0.0-5.0); NEUTROPHILS # 8.1 K/mm3 (1.8-7.7); NEUTROPHILS % 69.8 % (36.0-66.0); PLATELET COUNT, AUTOMATED 269 k/mm3 (150-450); RED CELL DISTRIBUTION WIDTH 14.1 % (11.5-14.5); WHITE BLOOD COUNT 11.6 K/mm3 (4.0-10.0)
[2016-05-20 06:27] LABS: ALBUMIN 2.5 GM/DL (3.2-5.2); ALBUMIN/GLOBULIN RATIO 0.69 (1.00-1.93); ALKALINE PHOSPHATASE 75 U/L (45-117); ALT/SGPT 32 U/L (12-78); ANION GAP 10 MEQ/L (8-16); AST/SGOT 27 U/L (15-37); BILIRUBIN,TOTAL 0.3 MG/DL (0.2-1.0); BLOOD UREA NITROGEN 12 MG/DL (7-18); CALCIUM LEVEL 8.2 MG/DL (8.8-10.2); CARBON DIOXIDE LEVEL 27 MEQ/L (21-32); CHLORIDE LEVEL 106 MEQ/L (98-107); CREATININE FOR GFR 0.89 MG/DL (0.70-1.30); GLOMERULAR FILTRATION RATE > 60.0 (>49); GLUCOSE, FASTING 139 MG/DL (80-110); POTASSIUM SERUM 3.8 MEQ/L (3.5-5.1); SODIUM LEVEL 143 MEQ/L (136-145); TOTAL PROTEIN 6.1 GM/DL (6.4-8.2)
[2016-05-20] MEDS: ENOXAPARIN 40 MG/0.4 ML SYRINGE (J1650) SC SCH (08:49)
[2016-05-20] MEDS: DOCUSATE SODIUM 100 MG CAP PO SCH ×2 (08:49→20:04)
[2016-05-20] MEDS: PANTOPRAZOLE 40MG TAB (PROTONIX) PO SCH (08:49)
[2016-05-20 10:00] VITALS: BP 137/78
[2016-05-20 14:00] VITALS: BP 137/78
[2016-05-20 18:00] VITALS: BP 133/84
[2016-05-20] MEDS: PERCOCET 5MG/325MG TAB PO PRN (20:04)
[2016-05-20 22:00] VITALS: BP 144/86
[2016-05-21 02:00] VITALS: BP 131/73
[2016-05-21] MEDS: PIPERACILLIN/TAZOBACTAM SOD 3.375 GM in D5W MINI-BAG PLUS 50 ML IV SCH ×2 (02:10→09:09)
[2016-05-21] MEDS: LEVOTHYROXINE 0.125 MG TAB (125 MCG) PO SCH (05:37)
[2016-05-21 06:00] VITALS: BP 145/79
[2016-05-21 07:35] LABS: BASO # 0.1 K/mm3 (0.0-0.2); BASO % 0.5 % (0.0-1.0); EOS # 0.6 K/mm3 (0.0-0.50); EOS % 5.7 % (0.0-3.0); LARGE UNSTAINED CELL # 0.3 K/mm3 (0.0-0.4); LARGE UNSTAINED CELL % 2.8 % (0.0-4.0); LYMPH # 1.9 K/mm3 (1.5-4.5); LYMPH % 16.8 % (24.0-44.0); MEAN CORPUSCULAR HGB CONC 34.3 g/dl (32.0-36.5); MEAN CORPUSCULAR VOLUME 90.4 fl (80.0-96.0); MONO # 0.5 K/mm3 (0.0-0.8); MONO % 4.2 % (0.0-5.0); NEUTROPHILS # 7.9 K/mm3 (1.8-7.7); NEUTROPHILS % 69.9 % (36.0-66.0); PLATELET COUNT, AUTOMATED 275 k/mm3 (150-450); RED CELL DISTRIBUTION WIDTH 14.1 % (11.5-14.5); WHITE BLOOD COUNT 11.2 K/mm3 (4.0-10.0)
[2016-05-21] MEDS: DOCUSATE SODIUM 100 MG CAP PO SCH ×2 (09:09→21:35)
[2016-05-21] MEDS: ENOXAPARIN 40 MG/0.4 ML SYRINGE (J1650) SC SCH (09:09)
[2016-05-21] MEDS: PANTOPRAZOLE 40MG TAB (PROTONIX) PO SCH (09:09)
[2016-05-21 10:00] VITALS: BP 140/80
[2016-05-21 14:00] VITALS: BP 141/79
[2016-05-21] MEDS: PERCOCET 5MG/325MG TAB PO PRN (21:35)
[2016-05-21 22:00] VITALS: BP 134/81
[2016-05-22 02:00] VITALS: BP 141/80
[2016-05-22] MEDS: LEVOTHYROXINE 0.125 MG TAB (125 MCG) PO SCH (05:38)
[2016-05-22 06:00] VITALS: BP 149/78
[2016-05-22 06:39] LABS: BASO # 0.1 K/mm3 (0.0-0.2); BASO % 0.6 % (0.0-1.0); EOS # 0.6 K/mm3 (0.0-0.50); EOS % 4.7 % (0.0-3.0); LARGE UNSTAINED CELL # 0.4 K/mm3 (0.0-0.4); LARGE UNSTAINED CELL % 3.6 % (0.0-4.0); LYMPH % 16.4 % (24.0-44.0); MEAN CORPUSCULAR HEMOGLOBIN 30.9 pg (27.0-33.0); MEAN CORPUSCULAR HGB CONC 33.6 g/dl (32.0-36.5); MEAN CORPUSCULAR VOLUME 92.1 fl (80.0-96.0); MONO # 0.4 K/mm3 (0.0-0.8); MONO % 3.2 % (0.0-5.0); NEUTROPHILS # 8.8 K/mm3 (1.8-7.7); NEUTROPHILS % 71.5 % (36.0-66.0); PLATELET COUNT, AUTOMATED 334 k/mm3 (150-450); RED CELL DISTRIBUTION WIDTH 14.3 % (11.5-14.5); WHITE BLOOD COUNT 12.3 K/mm3 (4.0-10.0)
[2016-05-22 06:53] LABS: ALBUMIN 2.7 GM/DL (3.2-5.2); ALBUMIN/GLOBULIN RATIO 0.69 (1.00-1.93); ALKALINE PHOSPHATASE 77 U/L (45-117); ALT/SGPT 50 U/L (12-78); ANION GAP 7 MEQ/L (8-16); AST/SGOT 30 U/L (15-37); BILIRUBIN,TOTAL 0.3 MG/DL (0.2-1.0); BLOOD UREA NITROGEN 12 MG/DL (7-18); CALCIUM LEVEL 8.6 MG/DL (8.8-10.2); CARBON DIOXIDE LEVEL 28 MEQ/L (21-32); CHLORIDE LEVEL 106 MEQ/L (98-107); CREATININE FOR GFR 0.78 MG/DL (0.70-1.30); GLOMERULAR FILTRATION RATE > 60.0 (>49); GLUCOSE, FASTING 94 MG/DL (80-110); POTASSIUM SERUM 3.9 MEQ/L (3.5-5.1); SODIUM LEVEL 141 MEQ/L (136-145); TOTAL PROTEIN 6.6 GM/DL (6.4-8.2)
[2016-05-22] MEDS: DOCUSATE SODIUM 100 MG CAP PO SCH ×2 (09:33→20:08)
[2016-05-22] MEDS: PANTOPRAZOLE 40MG TAB (PROTONIX) PO SCH (09:33)
[2016-05-22] MEDS: ENOXAPARIN 40 MG/0.4 ML SYRINGE (J1650) SC SCH (09:33)
[2016-05-22 10:00] VITALS: BP 138/61
[2016-05-22 14:00] VITALS: BP 141/83
[2016-05-22 18:00] VITALS: BP 139/81
[2016-05-22] MEDS: PERCOCET 5MG/325MG TAB PO PRN (20:59)
[2016-05-22 22:00] VITALS: BP 139/84
[2016-05-23 02:00] VITALS: BP 129/73
[2016-05-23] MEDS: LEVOTHYROXINE 0.125 MG TAB (125 MCG) PO SCH (05:36)
[2016-05-23 06:00] VITALS: BP 149/80
[2016-05-23 06:59] LABS: MEAN CORPUSCULAR HEMOGLOBIN 31.1 pg (27.0-33.0); MEAN CORPUSCULAR HGB CONC 33.8 g/dl (32.0-36.5); RED CELL DISTRIBUTION WIDTH 15.2 % (11.5-14.5); WHITE BLOOD COUNT 15.4 K/mm3 (4.0-10.0)
[2016-05-23] MEDS: DOCUSATE SODIUM 100 MG CAP PO SCH ×2 (08:05→20:13)
[2016-05-23] MEDS: ENOXAPARIN 40 MG/0.4 ML SYRINGE (J1650) SC SCH (08:05)
[2016-05-23] MEDS: PANTOPRAZOLE 40MG TAB (PROTONIX) PO SCH (08:05)
[2016-05-23] MEDS: metroNIDAZOLE (FLAGYL) 500 MG TAB PO SCH ×3 (10:40→20:13)
[2016-05-23] MEDS: CIPROFLOXACIN 500 MG TAB PO SCH ×2 (10:40→18:01)
[2016-05-23] MEDS ORDERED: GASTROGRAFIN SOLUTION 30ML PO ONE (10:45)
[2016-05-23] MEDS ORDERED: GASTROGRAFIN SOLUTION 30ML (Q9963) PO ONE (11:15)
[2016-05-23] MEDS ORDERED: ISOVUE-370 76% 100ML VIAL (Q9967) As Ordered ONE (12:00)
[2016-05-23 14:00] VITALS: BP 141/90
--- NOTE | 2016-05-23 15:19 | REP ---
CT study of the abdomen and pelvis with IV and oral contrast: History: Leukocytosis postop. Comparison is made with preoperative CT study from May 14, 2016. This showed a bowel perforation. On May 14, 2016 the patient underwent exploratory laparotomy, sigmoid colectomy, oversewing of rectal stump, and descending colostomy for perforated sigmoid diverticulitis with peritonitis. CT contrast dose: 100 mL of Isovue [address] findings: Digital jewel blocker and sawyer radiograph demonstrates a right hip prosthesis in place. A few air filled loops of small bowel are seen in the right mid abdomen. Enterostomy ring is seen to the left of midline. Axial CT images demonstrate bilateral lower lobe plate-like atelectasis. There is emphysematous change in the lower lobes bilaterally as well. A noncalcified pulmonary nodule is visible in the left lower lobe unchanged from the recent prior study. This measures 10 mm. There is no evidence of free intraperitoneal air. Left lower quadrant colostomy is seen and postoperative sutures are noted in the midline. There is a small quantity of air in the urinary bladder post instrumentation. The liver, spleen, gallbladder, adrenal glands, and kidneys are unremarkable. There are a few scattered pancreatic calcifications which may reflect previous pancreatitis. There is no evidence of upper abdominal fluid or abscess. Pelvic CT images demonstrate a 2.3 cm x 2.7 cm fluid collection with an enhancing margin in the left paracolic gutter adjacent to descending colon loop compatible with a small abscess. There is a second collection in the pelvic reflections adjacent to the rectal stump sutures. This measures 3.0 cm in greatest diameter. To the left of this is an air and fluid collection which may be a bladder diverticulum or conceivably a second collection. No other abnormal fluid collection is seen. No abdominal wall defect is seen other than the left lower quadrant colostomy. No evidence of obstruction. Impression: Status post sigmoid resection. Two and possibly a third abnormal fluid collections in the pelvis and left lower quadrant which may be abscesses as above. Signed by Pradeep Barlow MD 05/23/2016 03:39 P
[2016-05-23 18:00] VITALS: BP 136/84
[2016-05-23 22:00] VITALS: BP 131/76
[2016-05-24 02:00] VITALS: BP 124/71
[2016-05-24] MEDS: LEVOTHYROXINE 0.125 MG TAB (125 MCG) PO SCH (05:59)
[2016-05-24] MEDS: CIPROFLOXACIN 500 MG TAB PO SCH (05:59)
[2016-05-24 06:00] VITALS: BP 139/77
[2016-05-24] MEDS: PANTOPRAZOLE 40MG TAB (PROTONIX) PO SCH (09:53)
[2016-05-24] MEDS: metroNIDAZOLE (FLAGYL) 500 MG TAB PO SCH (09:53)
[2016-05-24] MEDS: DOCUSATE SODIUM 100 MG CAP PO SCH (09:53)
[2016-05-24] MEDS: ENOXAPARIN 40 MG/0.4 ML SYRINGE (J1650) SC SCH (09:53)
[2016-05-24] MEDS ORDERED: COLA100C PO (09:56)
[2016-05-24] MEDS ORDERED: CIPR500T89 PO (09:56)
[2016-05-24] MEDS ORDERED: PERCOCET PO (09:56)
[2016-05-24] MEDS ORDERED: FLAG500T PO (09:56)
[2016-05-24 10:00] VITALS: BP 120/72
--- NOTE | 2016-06-19 08:36 | DSES ---
DATE OF ADMISSION: 05/14/2016 DATE OF DISCHARGE: 05/24/2016 ADMITTING DIAGNOSIS: Perforated viscus. HISTORY OF PRESENT ILLNESS: The patient is a very pleasant 60-year-old man who presented to the emergency department with a history of abdominal pain with some associated nausea and vomiting. He reports that his discomfort had begun about two days earlier, but had become significantly worse the day prior to presentation. He had diffuse abdominal pain. He was found to have tenderness with guarding generalized within the abdomen. His evaluation included laboratory studies that showed an elevation of his white blood cell count to 13.6 with a significant left shift. His chemistries showed elevation of BUN and creatinine to 34 and 2.3 with a lactic acid of 8.5 and a C-reactive protein of 21.5. A CT scan of the abdomen and pelvis revealed abundant free intraperitoneal air and fluid. Sigmoid diverticulosis was noted. I was consulted. The patient's history was felt to be most consistent with a perforated sigmoid diverticulum. He was scheduled for emergency surgery on admission. HOSPITAL COURSE: The patient was taken to the operating room and underwent an exploratory laparotomy. He was found to have diffuse peritonitis with more pronounced inflammation in the pelvis. The sigmoid colon was found to be markedly inflamed and indurated. A discrete perforation was not identified, but it was clear that the source of his infection was in the sigmoid colon. He underwent a sigmoid colectomy with oversewing of his rectal stump and an end descending colostomy. Postoperatively, he was continued on antibiotics. He was placed in the intensive care unit postoperatively for close monitoring over concerns about sepsis. He was continued on Zosyn. A Pulido catheter was continued to monitor his urine output closely. A nasogastric (NG) tube was utilized as well. On the , his white count was noted to be 14,000. His BUN and creatinine had both improved significantly and his lactic acid was down to 1.3. An arterial line started by anesthesia was discontinued. The patient was allowed out of bed. He was continued in the intensive care unit. He was provided with analgesics as necessary. He used morphine sparingly as of postoperative day #2. His Pulido catheter was discontinued. He was transferred to the floor on or about postoperative day #2. He began passing more gas per stoma on postoperative day #3. His NG was discontinued and he was started on clear liquids. Ostomy teaching was begun. He tolerated the clear liquids and was advanced to a regular diet. His ostomy training continued. His antibiotic coverage continued. By postoperative day #5, he appeared to be doing very well. He remained afebrile. His ostomy was functioning with output of stool. He continued with a white count of 11.6 on postoperative day #6. His renal function remained normal. He had a little bit of drainage between sebas in the lower part of his incision. The patient reported that he felt quite capable with his colostomy care. The patient continued to do well. He had a very slight rise in his white count on the and 8th of May and a CT scan of the abdomen and pelvis was obtained. He was started back on antibiotics, which had been stopped. The CT was done the . This showed three very small fluid collections, two were deep in the pelvis and one was lateral inferior to the colon leading to his colostomy. These did not appear to require drainage. The patient and I discussed these and elected to continue him on antibiotics and follow up with a repeat CT scan in 7-10 days. He was therefore discharged home on 05/24/2016 in good condition. FINAL DIAGNOSES: 1. Perforated sigmoid diverticulum with diffuse peritonitis. 2. Acute kidney injury. 3. Hypercholesterolemia. 4. Diabetes mellitus. 5. Hypothyroidism. 6. Chronic obstructive pulmonary disease. PROCEDURES PERFORMED: Exploratory laparotomy with sigmoid colectomy, oversewing of rectal stump and end descending colostomy. DISPOSITION: The patient was discharged home on 05/24/2016 in good condition. He was to follow up with me on 05/31/2016 at 2:15. He was advised to avoid any lifting greater than 25-30 pounds or other strenuous activity. He could take a regular diet as tolerated. He was allowed to shower as desired. He was to call the office for any fevers, chills or worsening pain. He was to change his ostomy appliance as needed. He was to continue ciprofloxacin 500 mg by mouth twice daily and Flagyl 500 mg by mouth three times a day, both for 10 days. He was given a prescription for Colace 100 mg by mouth twice daily and was to use Percocet as needed for pain. He could continue aspirin 81 mg by mouth daily, levothyroxine 125 mcg by mouth daily, metformin 500 mg by mouth twice daily, a multivitamin daily, and omeprazole 20 mg by mouth daily. A home-care/visiting nurse consult was requested as well for assistance in managing his new ostomy. JEFFERSON
== END 2016-05-24 14:54 | disposition home health service (06) | DRG 329 ==
LOC: M ED 08:51 → M ED INP 14:03 → M ICU 18:45 → M MSPAV 05-16 20:44
PROVIDERS: ADMIT Surgery; ATTEND Surgery
PROC: 0D1N0Z4 Bypass Sigmoid Colon to Cutaneous, Open Approach (ICD-10-PCS; 2016-05-14)
PROC: 0DBN0ZZ Excision of Sigmoid Colon, Open Approach (ICD-10-PCS; principal; 2016-05-14 13:45)
DX: K57.20 Diverticulitis of large intestine with perforation and abscess without bleeding (principal); K65.0 Generalized (acute) peritonitis; K65.1 Peritoneal abscess; N17.9 Acute kidney failure, unspecified; E87.2 Acidosis; E11.9 Type 2 diabetes mellitus without complications; E03.9 Hypothyroidism, unspecified; K21.9 Gastro-esophageal reflux disease without esophagitis; I25.10 Atherosclerotic heart disease of native coronary artery without angina pectoris; Z79.82 Long term (current) use of aspirin; Z79.84 Long term (current) use of oral hypoglycemic drugs; Z79.899 Other long term (current) drug therapy; Z96.641 Presence of right artificial hip joint; Z88.0 Allergy status to penicillin; Z88.5 Allergy status to narcotic agent

== ENCOUNTER → 2016-06-02 | Outpatient (CLI) | payer MEDICARE ==
[~2016-06-02] MED LIST changes: +ASPI1TAB PO; +CIPR500T89 PO; +COLA100C PO; +FLAG500T PO; +GASTROGRAFIN SOLUTION 30ML (Q9963) As Ordered ONE; +ISOVUE-370 76% 100ML VIAL (Q9967) As Ordered ONE; +PERCOCET PO
--- NOTE | 2016-06-02 15:32 | REP ---
CT PELVIS WITH IV AND ORAL CONTRAST: 06/02/2016 INDICATION: History of colonic perforation with abscess with subsequent distal colectomy and left lower quadrant colostomy 06/02/2016. Comparison made with prior CT abdomen and pelvis 05/23/2016 and 05/14/2016. TECHNIQUE: After drinking two cups of oral contrast each containing 10 mL Gastrografin in 290 mL water, 100 mL Isovue 370 mg/mL IV was injected intravenously. FINDINGS: The visualized portions of the kidneys are unremarkable without hydronephrosis, inflammatory changes, masses or cysts. Inferior aspect of the posterior segment right lobe of the liver is visualized and is within normal limits. Moderate atherosclerotic changes are noted in the aortoiliac artery. The included portions of the small bowel is without obstruction. There is moderate stool within the included portions of the cecum and proximal ascending colon. There is sigmoid diverticulosis. Mural thickening is seen in distal sigmoid remnant, near anastamotic area. Small loculated fluid collection with ovoid mildly thickened rim, measuring 1.9 cm maximal transverse dimension isn within the region of the distal sigmoid is noted on image 49, series 202, and may represent a small abscess, yet is decreased in size from the prior study. Two additional cystic areas are seen within the posterior bladder, on the right and on the left most compatible with bladder diverticula, largest 3 cm in transverse dimension on the left in the region of the left bladder trigone. A smaller cystic collection measuring 1.3 cm in transverse dimension is seen in the right lower lateral bladder also in the region of the right bladder trigone. There is no free air or ascites. IMPRESSION: Mural thickening within the distal sigmoid remnant. Small loculated fluid collection of 1.9 cm diameter on image 49, series 202, could represent a small abscess yet is decreased in size from prior study when it was 3 cm in maximal dimension. Probable bilateral bladder diverticula. These can be further evaluated by obtaining a CT urogram or obtained via CT pelvis performed with hematuria protocol. MTDD
== END ==
LOC: M RAD 12:28
PROVIDERS: ATTEND Surgery
DX: K57.20 Diverticulitis of large intestine with perforation and abscess without bleeding (principal)
CPT/HCPCS: 72193; Q9963; Q9967

== ENCOUNTER → 2016-09-21 | Outpatient (CLI) | payer MEDICARE ==
[~2016-09-21] VITALS: Ht 170.2 cm; Wt 71.2 kg
[~2016-09-21] MED LIST changes: -COLA100C PO; +COLA100C3 PO; -GASTROGRAFIN SOLUTION 30ML (Q9963) As Ordered ONE; -ISOVUE-370 76% 100ML VIAL (Q9967) As Ordered ONE; +LR 1,000 ML IV SCH; +PROPOFOL 200 MG/20 ML VIAL As Ordered ONE
--- NOTE | 2016-09-21 11:54 | ROOR ---
Patient Name: Darrian Sim Procedure Date: 09/21/2016 11:10 AM Date of : 1955 Age: 60 Room: [facility] Gender: Male Note Status: Finalized Procedure: Colonoscopy Indications: Preoperative assessment Providers: Paul Hong MD Referring MD: LIVIA OSBORNE MD Requesting Provider: Medicines: Monitored Anesthesia Care Complications: No immediate complications. Procedure: Pre-Anesthesia Assessment: - Prior to the procedure, a History and Physical was performed, and patient medications and allergies were reviewed. The patient is competent. The risks and benefits of the procedure and the sedation options and risks were discussed with the patient. All questions were answered and informed consent was obtained. Patient identification and proposed procedure were verified by the physician, the nurse and the nib inspector in the procedure room. Mental Status Examination: alert and oriented. Airway Examination: normal oropharyngeal airway and neck mobility. CV Examination: regular rate and rhythm. Prophylactic Antibiotics: The patient does not require prophylactic antibiotics. Prior Anticoagulants: The patient has taken no previous anticoagulant or antiplatelet agents. ASA Grade Assessment: II - A patient with mild systemic disease. After reviewing the risks and benefits, the patient was deemed in satisfactory condition to undergo the procedure. The anesthesia plan was to use monitored anesthesia care (MAC). Immediately prior to administration of medications, the patient was re-assessed for adequacy to receive sedatives. The heart rate, respiratory rate, oxygen saturations, blood pressure, adequacy of pulmonary ventilation, and response to care were monitored throughout the procedure. The physical status of the patient was re-assessed after the procedure. The Colonoscope [id number] #[id number] was introduced through the descending colostomy and advanced to the cecum, identified by appendiceal orifice and ileocecal valve. The colonoscopy was performed without difficulty. The patient tolerated the procedure well. The quality of the bowel preparation was good. The Colonoscope [id number] #[id number] was introduced through the anus and advanced to the sigmoid colon for evaluation. This was the intended extent. Findings: Extensive large-mouthed diverticula were found in the entire colon. A 15 mm polyp was found in the proximal ascending colon. The polyp was sessile. The polyp was removed with a hot snare. Resection and retrieval were complete. Multiple medium-mouthed diverticula were found in the recto-sigmoid colon and distal sigmoid colon. Impression: - Diverticulosis in the entire examined colon. - One 15 mm polyp in the proximal ascending colon, removed with a hot snare. Resected and retrieved. - Diverticulosis in the recto-sigmoid colon and in the distal sigmoid colon. Recommendation: - Discharge patient to home. - Resume previous diet. - Continue present medications. - Return to my office in 10 days. Paul Hong MD 09/21/2016 11:54:15 AM Number of Addenda: 0 Note Initiated On: 09/21/2016 11:10 AM Estimated Blood Loss: Estimated blood loss: none.
[2016-09-21 12:15] VITALS: BP 133/87
== END | disposition home or self-care (01) ==
LOC: M OPP 10:00
PROVIDERS: ATTEND Surgery
DX: Z01.818 Encounter for other preprocedural examination (principal); Z09 Encounter for follow-up examination after completed treatment for conditions other than malignant neoplasm; D12.2 Benign neoplasm of ascending colon; K57.30 Diverticulosis of large intestine without perforation or abscess without bleeding; Z87.19 Personal history of other diseases of the digestive system; E78.5 Hyperlipidemia, unspecified; Z95.1 Presence of aortocoronary bypass graft; E11.9 Type 2 diabetes mellitus without complications; E03.9 Hypothyroidism, unspecified; R12 Heartburn; R56.9 Unspecified convulsions; N40.0 Benign prostatic hyperplasia without lower urinary tract symptoms; F17.210 Nicotine dependence, cigarettes, uncomplicated; Z88.5 Allergy status to narcotic agent; Z88.0 Allergy status to penicillin; Z79.82 Long term (current) use of aspirin; Z79.84 Long term (current) use of oral hypoglycemic drugs; Z79.899 Other long term (current) drug therapy

== ENCOUNTER 2016-10-28 11:16 | Inpatient (IN) | payer MEDICARE ==
[~2016-10-28] VITALS: Ht 170.2 cm; Wt 68.1 kg
[2016-10-28] MEDS: LEVOTHYROXINE 125MCG TABLET (0.125MG) PO SCH (06:00)
--- NOTE | 2016-10-28 07:42 | HPE ---
DATE OF ADMISSION: 10/28/2016 ADMISSION DIAGNOSIS: Colostomy status post perforated sigmoid diverticulum for closure. HISTORY OF PRESENT ILLNESS: The patient is a very pleasant 60-year-old man who initially presented on the April with abdominal pain with nausea and vomiting. Evaluation revealed evidence for peritonitis and a CT scan revealed abundant free intraperitoneal air and fluid with sigmoid diverticulosis noted. He underwent an emergency exploratory laparotomy. He was found to have diffuse peritonitis which appeared to arise from a markedly inflamed and indurated sigmoid colon. A discrete perforation was not identified but it was clear that the source of his infection was in the sigmoid colon. He underwent a sigmoid colectomy with oversewing of his rectal stump and an end descending colostomy. He has recovered well from his peritonitis and resumed normal activities. His colostomy is functioning well. He underwent a followup colonoscopy on September 21, 2016. This revealed that he had extensive diverticulosis involving the entire colon. A small polyp was found in the proximal descending colon and this was removed with a hot snare. Endoscopy of his rectum and remaining rectosigmoid showed persistent diverticulosis in the rectosigmoid region. The patient is now being admitted to undergo a closure of his colostomy. He is to perform a mechanical and antibiotic bowel preparation on October 27 and present on the morning of October 28 for surgery. ALLERGIES: Reported to CODEINE and PCN. MEDICATIONS: - aspirin 325 mg by mouth every three days - Levothyroxine 125 mcg by mouth daily - metformin 500 mg tablets one daily - multivitamin 1 tablet daily - omeprazole 20 mg by mouth daily PAST MEDICAL HISTORY: Significant for: 1. Hypothyroidism. 2. Diabetes mellitus Type 2, non-insulin requiring. 3. History of hypercholesterolemia. 4. Gastroesophageal reflux disease. 5. history of a closed injury of the head. 6. He does smoke but has cut back somewhat recently. PAST SURGICAL HISTORY: Significant for: 1. Cardiac surgery at age 26 secondary to trauma. Because of that trauma he also underwent an exploratory laparotomy. 2. He had a right total hip arthroplasty in 2016. 3. April 2016 underwent an exploratory laparotomy with a sigmoid colectomy, oversewing of his rectosigmoid stump, and end descending colostomy. 4. He had a colonoscopy on September 21, 2016. FAMILY HISTORY: Family history is really noncontributory. SOCIAL HISTORY: He is a current smoker. He denies any alcohol use. REVIEW OF SYSTEMS: Review of systems reveals no history of chest pain or palpitations. He denies shortness of breath, cough or wheezing. He denies any history of seizure or stroke. He has had no bleeding from the rectum or colostomy. His colostomy is functioning well. He is voiding without difficulty and denies any dysuria or hematuria. He has no significant bone or joint issues. There is no history of deep venous thrombosis (DVT) or pulmonary embolus. He has no history of neurologic problems. PHYSICAL EXAMINATION: GENERAL: Examination reveals a pleasant man in no apparent distress. He is alert, oriented and cooperative. VITAL SIGNS: His height is 5 feet 7 inches with a weight of 70 kg giving him a body mass index (BMI) of approximately 24. SKIN: Warm and dry. HEENT: Sclerae are anicteric. Mucous membranes are moist. NECK: Neck is supple without mass or bruit. HEART: Regular rate and rhythm. LUNGS: The lungs are clear to auscultation bilaterally. ABDOMEN: The abdomen is thin and flat. He has a nicely matured ostomy in the left midabdomen. A midline incision is well-healed. GENITAL EXAM: Unremarkable. EXTREMITIES: Palpable radial and pedal pulses bilaterally and there is no peripheral edema. ADMISSION DIAGNOSES: 1. Colostomy for elective closure. 2. Extensive diverticulosis. 3. Hypothyroidism. 4. Type 2 diabetes mellitus. 5. Hypercholesterolemia. 6. Gastroesophageal reflux disease. 7. Ongoing tobacco use. PLAN: The patient is admitted on October 28 to undergo a laparoscopic and possible open closure of his colostomy. It is anticipated that further resection of his rectosigmoid stump will be performed to eliminate the residual diverticulosis in this area and to make possible a transanal stapled anastomosis. He was counseled that it may be necessary to convert from a laparoscopic procedure to an open procedure depending on the extent of scarring within the abdomen and pelvis. The patient is to perform a mechanical and antibiotic bowel preparation the day before admission utilizing SUPREP, neomycin and Flagyl. A Pulido catheter will be as inserted in the operating room. He will receive doses of Invanz and Entereg preoperatively. The patient was counseled regarding the risks of the procedure which include but are not limited to bleeding, infection, scarring, adverse drug reaction, need for further surgery, injury to internal organ, anastomotic leak, and hernia. The patient had an opportunity to ask questions. These were answered to the best of my ability. He desires to proceed with the surgery as it has been outlined. JEFFERSON
[2016-10-28] MEDS: MULTIVITAMINS/MINERALS THERAP 1 TAB PO SCH (09:00)
[2016-10-28] MEDS: PANTOPRAZOLE 40MG INJ (PROTONIX) (C9113) IV SCH (09:00)
[~2016-10-28 11:16] MED LIST changes: +ASPI325T24 PO; -ATOR1TAB18 PO; +ATOR80TA59 PO; +CIPR-249 PO; -CIPR500T89 PO; -COLA100C3 PO; +COLA100C5 PO; -LR 1,000 ML IV SCH; -METF500T PO; +METF500T13 PO; -PROPOFOL 200 MG/20 ML VIAL As Ordered ONE
[2016-10-28] MEDS ORDERED: LR 1,000 ML IV SCH ×2 (11:30→20:30)
[2016-10-28] MEDS ORDERED: LR 1,000 ML IV ONE (11:30)
[2016-10-28] MEDS ORDERED: ALVIMOPAN 12 MG CAPSULE (ENTEREG) PO ONE (11:45)
[2016-10-28] MEDS ORDERED: ERTAPENEM SODIUM 1 GM in NS MINI-BAG PLUS 50 ML IV ONE (11:45)
[2016-10-28 11:59] LABS: MEAN CORPUSCULAR HEMOGLOBIN 31.9 pg (27.0-33.0); MEAN CORPUSCULAR VOLUME 91.1 fl (80.0-96.0); RED CELL DISTRIBUTION WIDTH 14.2 % (11.5-14.5)
[2016-10-28 12:28] LABS: ANION GAP 8 MEQ/L (8-16); BLOOD UREA NITROGEN 22 MG/DL (7-18); CALCIUM LEVEL 8.7 MG/DL (8.8-10.2); CARBON DIOXIDE LEVEL 24 MEQ/L (21-32); CHLORIDE LEVEL 109 MEQ/L (98-107); CREATININE FOR GFR 0.81 MG/DL (0.70-1.30); GLOMERULAR FILTRATION RATE > 60.0 (>49); GLUCOSE, FASTING 109 MG/DL (80-110); POTASSIUM SERUM 3.7 MEQ/L (3.5-5.1); SODIUM LEVEL 141 MEQ/L (136-145)
[2016-10-28] MEDS ORDERED: fentaNYL 100 MCG/2 ML INJECTION (J3010) As Ordered ONE ×3 (12:43→19:30)
[2016-10-28] MEDS ORDERED: MIDAZOLAM INJ 2 MG/2 ML VIAL (J2250) As Ordered ONE (12:43)
[2016-10-28] MEDS ORDERED: BUPIVACAINE HCL 0.25% 30 ML VIAL As Ordered ONE (12:47)
[2016-10-28] MEDS ORDERED: NEOSTIGMINE 1MG/ML 5 ML SYRINGE (J2710) As Ordered ONE (14:37)
[2016-10-28] MEDS ORDERED: dexameTHASONE 4 MG/ML 1ML VIAL (J1100) As Ordered ONE (14:37)
[2016-10-28] MEDS ORDERED: ROCURONIUM BROMIDE 50 MG/5 ML VIAL/SYRINGE As Ordered ONE (14:37)
[2016-10-28] MEDS ORDERED: GLYCOPYRROLATE INJ 0.2 MG/ML 2 ML VIAL As Ordered ONE ×2 (14:37→17:40)
[2016-10-28] MEDS ORDERED: KETOROLAC 60 MG/2 ML VIAL (J1885) As Ordered ONE (14:37)
[2016-10-28] MEDS ORDERED: PROPOFOL 200 MG/20 ML VIAL As Ordered ONE (14:37)
[2016-10-28] MEDS ORDERED: LIDOCAINE 2% INJ 100 MG/5 ML SDV (FOR ANES.) As Ordered ONE (14:37)
[2016-10-28] MEDS ORDERED: ONDANSETRON 4MG/2ML VIAL (J2405) As Ordered ONE (14:38)
[2016-10-28] MEDS ORDERED: ePHEDrine SULFATE 25 MG/5 ML(5MG/ML) SYRINGE As Ordered ONE (14:38)
[2016-10-28] MEDS ORDERED: PHENYLephrine HCL 500 MCG/5 ML (100MCG/ML) SYRINGE (J2370) As Ordered ONE ×2 (14:38→19:01)
[2016-10-28] MEDS ORDERED: HYDROmorphone HCL 2 MG/ML 1ML VIAL (J1170) As Ordered ONE (15:39)
[2016-10-28] MEDS ORDERED: MORPHINE 2 MG/ML 1ML SYRINGE IV PRN (20:00)
[2016-10-28] MEDS ORDERED: ONDANSETRON 4MG/2ML VIAL (J2405) IV PRN ×2 (20:00→20:30)
[2016-10-28] MEDS ORDERED: MORPHINE 4 MG/ML 1ML SYRINGE IV PRN (20:00)
[2016-10-28] MEDS ORDERED: ACETAMINOPHEN TAB 650MG DOSE (2X325MG) PO PRN (20:00)
[2016-10-28] MEDS: KETOROLAC 30 MG/ML VIAL (J1885) IV SCH (20:00)
[2016-10-28] MEDS ORDERED: METOCLOPRAMIDE INJ 10MG/2ML VIAL (J2765) IV PRN ×2 (20:00→20:30)
[2016-10-28] MEDS ORDERED: NORCO, ANEXSIA 5/325MG TABLET (HYDROcodone/ACETAMINOPHEN) PO PRN (20:00)
[2016-10-28] MEDS ORDERED: fentaNYL 100 MCG/2 ML INJECTION (J3010) IV PRN (20:30)
[2016-10-28] MEDS ORDERED: PERCOCET 5MG/325MG TAB PO PRN (20:30)
[2016-10-28] MEDS: HumaLOG INSULIN (NovoLOG) PER UNIT SC SCH (21:00)
[2016-10-28] MEDS: MORPHINE 2 MG/ML 1ML SYRINGE IV PRN ×3 (21:02→21:25)
[2016-10-28 21:50] VITALS: BP 143/78
[2016-10-28] MEDS: ALVIMOPAN 12 MG CAPSULE (ENTEREG) PO SCH (22:10)
[2016-10-28 22:20] VITALS: BP 127/78
[2016-10-28 22:50] VITALS: BP 127/73
[2016-10-28 23:50] VITALS: BP 122/69
[2016-10-29] VITALS (7 sets, daily range): BP systolic 103–135; BP diastolic 60–80
[2016-10-29] MEDS: KETOROLAC 30 MG/ML VIAL (J1885) IV SCH ×4 (01:34→20:16)
[2016-10-29] MEDS: LR 1,000 ML IV SCH ×2 (01:35→05:31)
[2016-10-29] MEDS: LEVOTHYROXINE 125MCG TABLET (0.125MG) PO SCH (05:31)
[2016-10-29] MEDS: NORCO, ANEXSIA 5/325MG TABLET (HYDROcodone/ACETAMINOPHEN) PO PRN ×3 (05:38→18:30)
[2016-10-29] MEDS: ENOXAPARIN 40 MG/0.4 ML SYRINGE (J1650) SC SCH (06:38)
[2016-10-29 07:09] LABS: ANION GAP 7 MEQ/L (8-16); BLOOD UREA NITROGEN 16 MG/DL (7-18); CALCIUM LEVEL 7.4 MG/DL (8.8-10.2); CARBON DIOXIDE LEVEL 27 MEQ/L (21-32); CHLORIDE LEVEL 103 MEQ/L (98-107); CREATININE FOR GFR 0.65 MG/DL (0.70-1.30); GLOMERULAR FILTRATION RATE > 60.0 (>49); GLUCOSE, FASTING 125 MG/DL (80-110); POTASSIUM SERUM 3.9 MEQ/L (3.5-5.1); SODIUM LEVEL 137 MEQ/L (136-145)
[2016-10-29 07:18] LABS: BASO % 0.2 % (0.0-1.0); EOS % 0.1 % (0.0-3.0); LARGE UNSTAINED CELL # 0.1 K/mm3 (0.0-0.4); LARGE UNSTAINED CELL % 0.6 % (0.0-4.0); LYMPH # 1.3 K/mm3 (1.5-4.5); LYMPH % 8.1 % (24.0-44.0); MEAN CORPUSCULAR HEMOGLOBIN 31.6 pg (27.0-33.0); MEAN CORPUSCULAR HGB CONC 34.4 g/dl (32.0-36.5); MEAN CORPUSCULAR VOLUME 91.8 fl (80.0-96.0); MONO # 0.5 K/mm3 (0.0-0.8); MONO % 3.6 % (0.0-5.0); NEUTROPHILS % 87.4 % (36.0-66.0); PLATELET COUNT, AUTOMATED 217 k/mm3 (150-450); RED CELL DISTRIBUTION WIDTH 14.6 % (11.5-14.5); WHITE BLOOD COUNT 14.9 K/mm3 (4.0-10.0)
[2016-10-29] MEDS: HumaLOG INSULIN (NovoLOG) PER UNIT SC SCH ×4 (08:26→19:59)
[2016-10-29] MEDS: MULTIVITAMINS/MINERALS THERAP 1 TAB PO SCH (08:26)
[2016-10-29] MEDS: ALVIMOPAN 12 MG CAPSULE (ENTEREG) PO SCH ×2 (08:26→20:15)
[2016-10-29] MEDS: PANTOPRAZOLE 40MG INJ (PROTONIX) (C9113) IV SCH (08:28)
[2016-10-30 02:00] VITALS: BP 140/80
[2016-10-30] MEDS: KETOROLAC 30 MG/ML VIAL (J1885) IV SCH ×2 (02:12→08:24)
[2016-10-30 05:42] LABS: MEAN CORPUSCULAR HEMOGLOBIN 30.9 pg (27.0-33.0); MEAN CORPUSCULAR HGB CONC 33.9 g/dl (32.0-36.5); MEAN CORPUSCULAR VOLUME 91.1 fl (80.0-96.0); RED CELL DISTRIBUTION WIDTH 14.5 % (11.5-14.5)
[2016-10-30 05:57] LABS: ANION GAP 5 MEQ/L (8-16); BLOOD UREA NITROGEN 9 MG/DL (7-18); CARBON DIOXIDE LEVEL 27 MEQ/L (21-32); CHLORIDE LEVEL 103 MEQ/L (98-107); CREATININE FOR GFR 0.64 MG/DL (0.70-1.30); GLOMERULAR FILTRATION RATE > 60.0 (>49); GLUCOSE, FASTING 101 MG/DL (80-110); POTASSIUM SERUM 3.5 MEQ/L (3.5-5.1); SODIUM LEVEL 135 MEQ/L (136-145)
[2016-10-30 06:00] VITALS: BP 137/81
[2016-10-30] MEDS: ENOXAPARIN 40 MG/0.4 ML SYRINGE (J1650) SC SCH (06:09)
[2016-10-30] MEDS: LEVOTHYROXINE 125MCG TABLET (0.125MG) PO SCH (06:09)
[2016-10-30] MEDS: HumaLOG INSULIN (NovoLOG) PER UNIT SC SCH ×4 (07:30→21:00)
[2016-10-30] MEDS: OMEPRAZOLE 20 MG CAP PO SCH (08:24)
[2016-10-30] MEDS: ALVIMOPAN 12 MG CAPSULE (ENTEREG) PO SCH ×2 (08:25→20:09)
[2016-10-30] MEDS: MULTIVITAMINS/MINERALS THERAP 1 TAB PO SCH (08:25)
--- NOTE | 2016-10-30 09:39 | IPNPDOC ---
Subjective General Date/Time Seen The patient was seen on 10/30/16 at 09:20. Subject Chief Complaint/History The patient is a 60-year-old male admitted with a reason for visit of Attention To Colostomy. POD 2 Reversal of Colostomy He reports pain at the incisions, tolerable. controlled with pain meds. Starting passing flatus, no bms yet. ambulating Current Medications Current Medications Current Medications Acetaminophen (Tylenol Tab) 650 mg Q4HP PRN PO MILD PAIN or TEMP > 101; Start 10/28/16 at 20:00; Stop 11/27/16 at 19:59 Acetaminophen/ Hydrocodone Bitart (Dulzura, Anexsia 5/325) 1 tab Q4HP PRN PO MODERATE PAIN (PS 5-7); Start 10/28/16 at 20:00; Stop 11/04/16 at 19:59 Acetaminophen/ Hydrocodone Bitart (Dulzura, Anexsia 5/325) 2 tab Q6HP PRN PO SEVERE PAIN (PS 8-10) Last administered on 10/29/16 18:30; Start 10/28/16 at 20 :00; Stop 11/04/16 at 19:59 Alvimopan (Entereg) 12 mg BID PO Last administered on 10/30/16 08:25; Start at 21:00; Stop 11/04/16 at 20:59 Enoxaparin Sodium (Lovenox) 40 mg DAILY@0700 SC Last administered on 10/30/16 06:09; Start 10/29/16 at 07:00; Stop 11/03/16 at 06:59 Fentanyl Citrate (Sublimaze) 25 mcg Q5MP PRN IV MODERATE PAIN (PS 4-7); Start 10/28/16 at 20:30; Stop 10/28/16 at 21:30; Status DC Insulin Human Lispro (HumaLOG INSULIN) SEE PROTOCOL TABLE AC SC Last administered on 10/29/16 12:16; Start 10/29/16 at 07:30; Stop 11/28/16 at 07:29 Insulin Human Lispro (HumaLOG INSULIN) SEE PROTOCOL TABLE QHS SC ; Start at 21:00; Stop 11/27/16 at 20:59 Ketorolac Tromethamine (ToRADol) 30 mg Q6H IV Last administered on 10/30/16 08 :24; Start 10/28/16 at 20:00; Stop 10/30/16 at 16:00 Lactated Ringer's 1,000 ml @ 50 mls/hr Q20H IV Last administered on 10/29/16 05:31; Start 10/28/16 at 19:57; Stop 10/29/16 at 17:55; Status DC Lactated Ringer's 1,000 ml @ 100 mls/hr Q10H IV ; Start 10/28/16 at 20:30; Stop 10/28/16 at 21:30; Status DC Lactated Ringer's 1,000 ml @ 200 mls/hr Q5H IV ; Start 10/28/16 at 11:30; Stop 10/28/16 at 20:15; Status DC Levothyroxine Sodium (Synthroid) 125 mcg DAILY@0600 PO Last administered on 06:09; Start 10/28/16 at 06:00; Stop 11/27/16 at 05:59 Metoclopramide HCl (REGLAN INJection) 10 mg Q6HP PRN IV NAUSEA OR VOMITING; Start 10/28/16 at 20:00; Stop 11/27/16 at 19:59 Metoclopramide HCl (REGLAN INJection) 10 mg Q6HP PRN IV NAUSEA OR VOMITING; Start 10/28/16 at 20:30; Stop 10/28/16 at 21:30; Status DC Morphine Sulfate (Morphine Sulfate Inj) 2 mg Q2HP PRN IV SEVERE PAIN (PS 8-10) Last administered on 10/28/16 22:24; Start 10/28/16 at 20:00; Stop 11/04/16 at 19:59 Morphine Sulfate (Morphine Sulfate Inj) 2 mg Q5MP PRN IV MODERATE/SEVERE PAIN ( PS 7-10) Last administered on 10/28/16 21:25; Start 10/28/16 at 20:30; Stop at 21:30; Status DC Morphine Sulfate (Morphine Sulfate Inj) 4 mg Q2HP PRN IV SEVERE PAIN (PS 8-10) ; Start 10/28/16 at 20:00; Stop 11/04/16 at 19:59 Multivitamins (Theragram-M) 1 tab DAILY PO Last administered on 10/30/16 08:25 ; Start 10/28/16 at 09:00; Stop 11/27/16 at 08:59 Omeprazole (PriLOSEC) 20 mg DAILY PO Last administered on 10/30/16 08:24; Start 10/30/16 at 09:00; Stop 11/29/16 at 08:59 Ondansetron HCl (ZOFRAN INJection) 4 mg Q4HP PRN IV NAUSEA OR VOMITING; Start 10/28/16 at 20:30; Stop 10/28/16 at 21:30; Status DC Ondansetron HCl (ZOFRAN INJection) 4 mg Q6HP PRN IV NAUSEA OR VOMITING; Start 10/28/16 at 20:00; Stop 11/27/16 at 19:59 Oxycodone/ Acetaminophen (Percocet 5mg/ 325mg Tablet) 1 tab ASDIRECTED PRN PO MODERATE PAIN (PS 4-7); Start 10/28/16 at 20:30; Stop 10/28/16 at 21:30; Status DC Pantoprazole Sodium (Protonix) 40 mg DAILY IV Last administered on 10/29/16 08 :28; Start 10/28/16 at 09:00; Stop 10/29/16 at 17:55; Status DC Allergies Coded Allergies: Penicillins (Verified Allergy, Intermediate, HIVES, 10/28/16) Codeine (Unverified Adverse Reaction, Unknown, nightmares, 10/21/16) Objective Physical Examination Examination GENERAL APPEARANCE:Patient seen, walking in room , awake, alert, and oriented. Comfortable, in no acute distress. SKIN: Warm and moist. HEENT: Normocephalic, atraumatic. [place] palpebral conjunctiva, anicteric sclerae. Lips and mucosa appear moist. NECK: Supple, no thyromegaly. No obvious jugular venous distention. LUNGS: Clear to auscultation bilaterally. slight decreased breath sounds basal posterior areas, no wheezing HEART: No chest wall abnormalities. Regular rate and rhythm with no murmurs appreciated. ABDOMEN: Abdomen is round, soft, mildly distended. previous colostomy site dressings removed, incision C/D/I. Rest of port sites clean. minimally tender at incision sites. EXTREMITIES: Extremities have no deformities. No edema identified. Vital Signs Vital Signs Date Time Temp Pulse Resp B/P (MAP) Pulse Ox O2 Delivery O2 Flow Rate FiO2 10/30/16 06:00 97.8 77 16 137/81 (99) 91 Room Air 10/29/16 22:00 2.0 10/28/16 22:20 80 I&Os I&O- Last 24 Hours up to 6 AM 10/30/16 06:00 Intake Total 3935 ml Output Total 3685 ml Balance 250 ml Laboratory Data Labs 24H Laboratory Tests 2 10/29/16 11:55: Bedside Glucose (Misc Panel) 113 10/29/16 16:33: Bedside Glucose (Misc Panel) 106 10/29/16 19:54: Bedside Glucose (Misc Panel) 114 10/30/16 05:30: Anion Gap 5L, Glomerular Filtration Rate > 60.0, Blood Urea Nitrogen 9, Creatinine 0.64L, Sodium Level 135L, Potassium Level 3.5, Chloride Level 103, Carbon Dioxide Level 27, Calcium Level 8.0L CBC/BMP Laboratory Tests 10/30/16 05:30 Red Blood Count 4.47, Mean Corpuscular Volume 91.1, Mean Corpuscular Hemoglobin 30.9, Mean Corpuscular Hemoglobin Concent 33.9, Red Cell Distribution Width 14.5 , Calcium Level 8.0 L Impression POD2 Reversal of Colostomy h/o perforated diverticulitis not ready for discharge yet. Encourage ambulation, deep breathing exercises. Continue on diet. Keep drain today Plan / VTE VTE Prophylaxis Ordered?: Yes Plan / Urinary Catheter Reason for insertion/continuin: Perioperative FLACO SOLER MD Oct 30, 2016 09:39
[2016-10-30 10:00] VITALS: BP 140/80
--- NOTE | 2016-10-30 13:55 | RO ---
DATE OF PROCEDURE: 10/28/2016 PREOPERATIVE DIAGNOSIS: Descending colostomy for elective closure. POSTOPERATIVE DIAGNOSES: 1. Colostomy for closure. 2. Extensive adhesions in the abdomen and pelvis. PROCEDUERE: Laparoscopy with lysis of adhesions, laparotomy with sigmoid colectomy and closure of colostomy with coloproctostomy, appendectomy. SURGEON: Dr. Hong SITE LEAD: Guero Santos SECOND BALL SHAGGER, HASMUKH Duarte ANESTHESIA: General. INDICATIONS FOR THE PROCEDURE: Patient is a 60-year-old man who had undergone an emergency exploratory laparotomy for peritonitis on 05/14/2016. He underwent a sigmoid colectomy for perforated diverticulitis with an end colostomy and oversewing of the rectal stump. He is now for a colostomy closure. OPERATIVE PROCEDURE: The patient was placed on the operating table in a supine position. He was placed under general endotracheal anesthesia. A Pulido catheter was inserted. Thromboembolism deterrents (TEDs) and sequentials were utilized. He was moved into a low lithotomy position with his lower extremities in padded leg holders. He was positioned using the pink pad to prevent slippage on the operating room (OR) table. A digital rectal examination was performed and several particles of formed stool were removed from the rectum. The colostomy was sutured closed with two concentric pursestrings of #2-0 silk. The patient's abdomen was then prepped and draped in a sterile fashion. The initial entry was made in the right lateral abdomen at the level of the umbilicus. A Veress needle was inserted and a 5 mm port was placed with the scope after the abdomen had been adequately insufflated. Initial examination showed fairly extensive adhesions with some loops of small bowel adherent to the anterior abdominal wall in the lower abdomen and some small bowel and omentum adherent more superiorly. There were fairly extensive adhesions around the area of the colostomy in the left midabdomen. A second 5 mm port was placed in the right lower quadrant and adhesions were lysed using the harmonic scalpel. In order to achieve better adhesiolysis, a third port was placed in the right upper quadrant. Once the adhesions had been cleared, the patient was tilted to a fairly steep Trendelenburg position. The small bowel mobilized up out of the pelvis very nicely. A few small strand-like adhesions were lysed. The tissues around the colostomy site were freed. Attention was turned to identification of the rectal stump. The cecum and appendix were adherent down into the center of the pelvis, which appeared to have re-peritonealized fairly thoroughly. The adhesions holding the appendix were quite dense and it was noted for later re-inspection that the appendix may have been slightly devascularized in the lysis of these adhesions. The peritoneum in the pelvis was then opened and dissection was carried out to identify the rectosigmoid that was remaining. The sigmoid portion of the colon appeared quite narrowed and fibrotic. This was followed distally and the peritoneum was opened on both sides of the rectum extending down into the pelvis. There were dense adhesions anteriorly between the anterior wall of the rectum and overlying tissue. Dissection continued inferiorly to identify a healthy spot for an anastomosis. This was identified fairly low in the pelvis. The posterior mesorectum was divided with the harmonic. In the course of dissection, a 10 mm port had been placed along the midline just above the umbilicus. The right lower quadrant 5 mm port was converted to a 12 mm port. I inserted an echelon stapler but discovered that because of the patient's narrow pelvis it would be impossible to staple across the rectosigmoid at the selected level. I elected therefore to make a smaller incision lower in the midline to staple the rectal stump and proceed with the anastomosis. This was deferred initially while the ostomy was mobilized. The abdomen was deflated. An elliptical incision was made transversely at the ostomy site and the ostomy was freed from the surrounding skin and subcutaneous tissues. There had been adequate mobilization of the descending colon in the course of dividing the adhesions previously. The colon was delivered through the ostomy site. Several additional adhesions to surrounding omentum were identified and divided, which provided excellent length to the descending colon. The patient's abdomen was draped with sterile towels and the stoma was cut off the end of the colon. The patient had fairly extensive diverticulosis remaining. The colon appeared to be well vascularized. A 25 mm EEA sizer would insert into the end of the colon with some slight resistance. A 29 mm EEA stapler was selected. A #2-0 Prolene pursestring suture was placed in the end of the colon and the anvil of the stapler was then inserted and the pursestring tied down. An additional pursestring was placed to tuck a diverticulum at the edge of the stapled area in toward the post of the anvil. The end of the colon with the anvil in place was then reduced into the abdomen. The patient had developed a parastomal hernia and this was now addressed. The anterior and posterior fascia were then clearly identified and freed. The posterior fascia and peritoneum were closed with a running suture of #1 Vicryl. The rectus muscle fibers were allowed to fall back together and the anterior fascia was closed with interrupted simple sutures of #1 Vicryl. At this point, an approximately 8 cm low midline incision was made. This was deepened into the abdomen. The bowels were packed up out of the pelvis with moist lap pads and the descending colon would reach readily down into the pelvis. I then placed a TX60G stapler across the rectal stump at the selected point and the stapler was closed and fired and the colon divided with a scalpel. The proximal portion was removed and sent as a specimen with the stoma as well. There did appear to be some fibrosis at the level of the staple line. I then went down to the perineum and gently dilated the rectum and inserted the stapler. This was advanced up to the end of the rectal stump, which was estimated about 10 cm. I attempted to advance the stapler right up to the staple line and this was possible but it was difficult to determine the location for advancement of the post of the stapler. Using the laparoscope to view this portion of the procedure on the monitor, I was not able to adequately determine a site for placement of the staple line. So Dr. Santos came down to the perineum and managed the stapler while I conducted business in the pelvis. Dr. Santos advanced the stapler up to the end of the rectal stump toward the patient's right side. The post was advanced through adjacent to the staple line. The anastomosis was difficult because of the patient's small pelvis. There was little room to maneuver the stapler with the post advanced fully. It was necessary to twist the tip of the stapler upward to allow placement of the anvil, and then as the stapler was closed it was tilted back down into the pelvis bringing the location of the anastomosis back down to the appropriate position. The stapler was closed and fired. The stapler was removed and there appeared to be two good tissue doughnuts. The distal donut was quite thickened. Following this, the pelvis was irrigated and inspected. I oversewed the left-hand side of the rectal staple line with interrupted simple sutures of #3-0 Prolene. The anastomosis was reinforced circumferentially with interrupted simple sutures of #3-0 Vicryl. This appeared to result in an excellent anastomosis. There appeared to be good vascularity. I then returned to the perineum while Dr. Santos changed gown and gloves and returned to the pelvis. The pelvis was filled with saline and I inserted the colonoscope into the rectum and up above the anastomosis and insufflated air, and no air leak was identified. The patient had multiple diverticula all the way down to the level of the anastomosis. The anastomosis appeared secure internally with no bleeding. On withdrawal of the scope, I would estimate that the staple line lay at approximately 8 cm from the anal verge. I then changed gown and gloves and returned to the abdomen. The appendix was re-inspected and the tip of the appendix appeared dusky so I performed an appendectomy using a firing of the echelon stapler across the base of the appendix and the mesoappendix was clamped, divided and ligated with chromic. The pelvis was irrigated. A 19-Yi Brenden drain was placed through the middle of the three right-sided 5 mm trocar sites and directed down into the pelvis anterior to the anastomosis. The 14 mm and 10 mm trocar sites were closed with #0 Vicryl. The peritoneum in the low midline incision was closed with a running suture of #0 chromic and the fascia was closed with interrupted simple sutures of #1 Vicryl. The drain was sutured to the skin with #2-0 silk and connected to a Jac-Vance bulb. The remaining five incisions, three trocar sites, the colostomy site, and the low midline incision were all then closed with a skin stapler. Bandages were applied. The patient tolerated the procedure well without apparent complication. He was awakened in the operating room, extubated and moved to the recovery room in stable condition. JEFFERSON
[2016-10-30 14:00] VITALS: BP 136/80
[2016-10-30] MEDS: NORCO, ANEXSIA 5/325MG TABLET (HYDROcodone/ACETAMINOPHEN) PO PRN (17:53)
[2016-10-30 18:00] VITALS: BP 130/80
[2016-10-30 22:00] VITALS: BP 144/79
[2016-10-31 06:00] VITALS: BP 150/81
[2016-10-31 06:00] LABS: BASO % 0.1 % (0.0-1.0); EOS # 0.3 K/mm3 (0.0-0.50); EOS % 2.5 % (0.0-3.0); LARGE UNSTAINED CELL # 0.1 K/mm3 (0.0-0.4); LYMPH # 1.3 K/mm3 (1.5-4.5); LYMPH % 10.4 % (24.0-44.0); MEAN CORPUSCULAR HEMOGLOBIN 31.6 pg (27.0-33.0); MEAN CORPUSCULAR HGB CONC 33.6 g/dl (32.0-36.5); MEAN CORPUSCULAR VOLUME 94.1 fl (80.0-96.0); MONO # 0.5 K/mm3 (0.0-0.8); NEUTROPHILS # 9.9 K/mm3 (1.8-7.7); PLATELET COUNT, AUTOMATED 215 k/mm3 (150-450); RED CELL DISTRIBUTION WIDTH 14.1 % (11.5-14.5); WHITE BLOOD COUNT 12.1 K/mm3 (4.0-10.0)
[2016-10-31] MEDS: NORCO, ANEXSIA 5/325MG TABLET (HYDROcodone/ACETAMINOPHEN) PO PRN ×3 (06:12→20:32)
[2016-10-31] MEDS: LEVOTHYROXINE 125MCG TABLET (0.125MG) PO SCH (06:12)
[2016-10-31] MEDS: ENOXAPARIN 40 MG/0.4 ML SYRINGE (J1650) SC SCH (06:12)
[2016-10-31] MEDS: HumaLOG INSULIN (NovoLOG) PER UNIT SC SCH ×4 (07:50→20:24)
[2016-10-31] MEDS: ALVIMOPAN 12 MG CAPSULE (ENTEREG) PO SCH ×2 (07:50→20:31)
[2016-10-31] MEDS: OMEPRAZOLE 20 MG CAP PO SCH (07:51)
[2016-10-31] MEDS: MULTIVITAMINS/MINERALS THERAP 1 TAB PO SCH (07:51)
--- NOTE | 2016-10-31 09:51 | IPNPDOC ---
Subjective General Date/Time Seen The patient was seen on 10/31/16 at 09:48. Subject Chief Complaint/History The patient is a 60-year-old male admitted for reversal of colostomy. He is postoperative day #3. He reports he is passing flatus. He had a small bowel movement this morning. He appears more comfortable. He is tolerating regular food. Drain is putting out small amounts of serosanguineous fluid. Current Medications Current Medications Current Medications Acetaminophen (Tylenol Tab) 650 mg Q4HP PRN PO MILD PAIN or TEMP > 101; Start 10/28/16 at 20:00; Stop 11/27/16 at 19:59 Acetaminophen/ Hydrocodone Bitart ([place], Anexsia 5/325) 1 tab Q4HP PRN PO MODERATE PAIN (PS 5-7) Last administered on 10/30/16 12:58; Start 10/28/16 at 20:00; Stop 11/04/16 at 19:59 Acetaminophen/ Hydrocodone Bitart ([place], Anexsia 5/325) 2 tab Q6HP PRN PO SEVERE PAIN (PS 8-10) Last administered on 10/31/16 06:12; Start 10/28/16 at 20 :00; Stop 11/04/16 at 19:59 Alvimopan (Entereg) 12 mg BID PO Last administered on 10/31/16 07:50; Start at 21:00; Stop 11/04/16 at 20:59 Enoxaparin Sodium (Lovenox) 40 mg DAILY@0700 SC Last administered on 10/31/16 06:12; Start 10/29/16 at 07:00; Stop 11/03/16 at 06:59 Fentanyl Citrate (Sublimaze) 25 mcg Q5MP PRN IV MODERATE PAIN (PS 4-7); Start 10/28/16 at 20:30; Stop 10/28/16 at 21:30; Status DC Insulin Human Lispro (HumaLOG INSULIN) SEE PROTOCOL TABLE AC SC Last administered on 10/31/16 07:50; Start 10/29/16 at 07:30; Stop 11/28/16 at 07:29 Insulin Human Lispro (HumaLOG INSULIN) SEE PROTOCOL TABLE QHS SC ; Start at 21:00; Stop 11/27/16 at 20:59 Ketorolac Tromethamine (ToRADol) 30 mg Q6H IV Last administered on 10/30/16 08 :24; Start 10/28/16 at 20:00; Stop 10/30/16 at 15:04; Status DC Lactated Ringer's 1,000 ml @ 50 mls/hr Q20H IV Last administered on 10/29/16 05:31; Start 10/28/16 at 19:57; Stop 10/29/16 at 17:55; Status DC Lactated Ringer's 1,000 ml @ 100 mls/hr Q10H IV ; Start 10/28/16 at 20:30; Stop 10/28/16 at 21:30; Status DC Lactated Ringer's 1,000 ml @ 200 mls/hr Q5H IV ; Start 10/28/16 at 11:30; Stop 10/28/16 at 20:15; Status DC Levothyroxine Sodium (Synthroid) 125 mcg DAILY@0600 PO Last administered on 06:12; Start 10/28/16 at 06:00; Stop 11/27/16 at 05:59 Metoclopramide HCl (REGLAN INJection) 10 mg Q6HP PRN IV NAUSEA OR VOMITING; Start 10/28/16 at 20:00; Stop 11/27/16 at 19:59 Metoclopramide HCl (REGLAN INJection) 10 mg Q6HP PRN IV NAUSEA OR VOMITING; Start 10/28/16 at 20:30; Stop 10/28/16 at 21:30; Status DC Morphine Sulfate (Morphine Sulfate Inj) 2 mg Q2HP PRN IV SEVERE PAIN (PS 8-10) Last administered on 10/28/16 22:24; Start 10/28/16 at 20:00; Stop 11/04/16 at 19:59 Morphine Sulfate (Morphine Sulfate Inj) 2 mg Q5MP PRN IV MODERATE/SEVERE PAIN ( PS 7-10) Last administered on 10/28/16 21:25; Start 10/28/16 at 20:30; Stop at 21:30; Status DC Morphine Sulfate (Morphine Sulfate Inj) 4 mg Q2HP PRN IV SEVERE PAIN (PS 8-10) ; Start 10/28/16 at 20:00; Stop 11/04/16 at 19:59 Multivitamins (Theragram-M) 1 tab DAILY PO Last administered on 10/31/16 07:51 ; Start 10/28/16 at 09:00; Stop 11/27/16 at 08:59 Omeprazole (PriLOSEC) 20 mg DAILY PO Last administered on 10/31/16 07:51; Start 10/30/16 at 09:00; Stop 11/29/16 at 08:59 Ondansetron HCl (ZOFRAN INJection) 4 mg Q4HP PRN IV NAUSEA OR VOMITING; Start 10/28/16 at 20:30; Stop 10/28/16 at 21:30; Status DC Ondansetron HCl (ZOFRAN INJection) 4 mg Q6HP PRN IV NAUSEA OR VOMITING; Start 10/28/16 at 20:00; Stop 11/27/16 at 19:59 Oxycodone/ Acetaminophen (Percocet 5mg/ 325mg Tablet) 1 tab ASDIRECTED PRN PO MODERATE PAIN (PS 4-7); Start 10/28/16 at 20:30; Stop 10/28/16 at 21:30; Status DC Pantoprazole Sodium (Protonix) 40 mg DAILY IV Last administered on 10/29/16 08 :28; Start 10/28/16 at 09:00; Stop 10/29/16 at 17:55; Status DC Allergies Coded Allergies: Penicillins (Verified Allergy, Intermediate, HIVES, 10/28/16) Codeine (Unverified Adverse Reaction, Unknown, nightmares, 10/21/16) Objective Physical Examination Examination GENERAL APPEARANCE:Patient seen, laying in bed, awake, alert, and oriented. Comfortable, in no acute distress. SKIN: Warm and moist. HEENT: Normocephalic, atraumatic. [place] palpebral conjunctiva, anicteric sclerae. Lips and mucosa appear moist. NECK: Supple, no thyromegaly. No obvious jugular venous distention. LUNGS: Clear to auscultation bilaterally. No wheezing appreciated. HEART: No chest wall abnormalities. Regular rate and rhythm with no murmurs appreciated. ABDOMEN: Abdomen is round, soft, minimally. Incision sites intact and healing. Drain with serosanguineous fluid. Minimally tender at the incision sites.. EXTREMITIES: Extremities have no deformities. No edema identified. Vital Signs Vital Signs Date Time Temp Pulse Resp B/P (MAP) Pulse Ox O2 Delivery O2 Flow Rate FiO2 10/31/16 07:49 18 10/31/16 06:00 98.6 71 150/81 (104) 96 10/30/16 18:00 Room Air 10/29/16 22:00 2.0 10/28/16 22:20 80 I&Os I&O- Last 24 Hours up to 6 AM 10/31/16 06:00 Intake Total 1340 ml Output Total 872 ml Balance 468 ml Laboratory Data Labs 24H Laboratory Tests 2 10/30/16 11:41: Bedside Glucose (Misc Panel) 140H 10/30/16 16:34: Bedside Glucose (Misc Panel) 93 10/30/16 20:26: Bedside Glucose (Misc Panel) 133H 10/31/16 05:30: White Blood Count 12.1H, Red Blood Count 4.58, Hemoglobin 14.5, Hematocrit 43.1 , Mean Corpuscular Volume 94.1, Mean Corpuscular Hemoglobin 31.6, Mean Corpuscular Hemoglobin Concent 33.6, Red Cell Distribution Width 14.1, Platelet Count 215, Neutrophils (%) (Auto) 82.0H, Lymphocytes (%) (Auto) 10.4L, Monocytes (%) (Auto) 4.0, Eosinophils (%) (Auto) 2.5, Basophils (%) (Auto) 0.1, Neutrophils # (Auto) 9.9H, Lymphocytes # (Auto) 1.3L, Monocytes # (Auto) 0.5, Eosinophils # (Auto) 0.3, Basophils # (Auto) 0.0, Large Unclassified Cells % 1.0 , Large Unclassified Cells # 0.1 10/31/16 06:16: Bedside Glucose (Misc Panel) 115 CBC/BMP Laboratory Tests 10/31/16 05:30 Red Blood Count 4.58, Mean Corpuscular Volume 94.1, Mean Corpuscular Hemoglobin 31.6, Mean Corpuscular Hemoglobin Concent 33.6, Red Cell Distribution Width 14.1 , Neutrophils (%) (Auto) 82.0 H, Lymphocytes (%) (Auto) 10.4 L, Monocytes (%) ( Auto) 4.0, Eosinophils (%) (Auto) 2.5, Basophils (%) (Auto) 0.1, Neutrophils # ( Auto) 9.9 H, Lymphocytes # (Auto) 1.3 L, Monocytes # (Auto) 0.5, Eosinophils # ( Auto) 0.3, Basophils # (Auto) 0.0 Impression Postop day 3 reversal of colostomy after initial presentation for perforated diverticulitis He continues to improve. Still has some mildly elevated white cell count though not showing any signs and symptoms are abdominal/rectal discomfort to suggest leakage in the anastomosis. I will keep you for 1 more day, repeat CBC in the morning. If stable can remains doing all right we'll most likely send him home with the drain tomorrow. Plan / VTE VTE Prophylaxis Ordered?: Yes Plan / Urinary Catheter Reason for insertion/continuin: Perioperative FLACO SOLER MD Oct 31, 2016 09:51
[2016-10-31 10:00] VITALS: BP 142/77
[2016-10-31 14:00] VITALS: BP 125/82
[2016-10-31 18:00] VITALS: BP 153/81
[2016-10-31 22:00] VITALS: BP 129/83
[2016-11-01 06:00] VITALS: BP 139/81
[2016-11-01] MEDS: LEVOTHYROXINE 125MCG TABLET (0.125MG) PO SCH (06:10)
[2016-11-01] MEDS: ENOXAPARIN 40 MG/0.4 ML SYRINGE (J1650) SC SCH (06:10)
[2016-11-01 06:22] LABS: BASO % 0.3 % (0.0-1.0); EOS # 0.4 K/mm3 (0.0-0.50); EOS % 4.4 % (0.0-3.0); LARGE UNSTAINED CELL # 0.1 K/mm3 (0.0-0.4); LARGE UNSTAINED CELL % 1.2 % (0.0-4.0); LYMPH # 1.6 K/mm3 (1.5-4.5); LYMPH % 14.7 % (24.0-44.0); MEAN CORPUSCULAR VOLUME 91.2 fl (80.0-96.0); MONO # 0.6 K/mm3 (0.0-0.8); MONO % 5.5 % (0.0-5.0); NEUTROPHILS # 7.3 K/mm3 (1.8-7.7); NEUTROPHILS % 73.9 % (36.0-66.0); PLATELET COUNT, AUTOMATED 232 k/mm3 (150-450); RED CELL DISTRIBUTION WIDTH 14.3 % (11.5-14.5); WHITE BLOOD COUNT 9.9 K/mm3 (4.0-10.0)
[2016-11-01] MEDS: HumaLOG INSULIN (NovoLOG) PER UNIT SC SCH (07:17)
[2016-11-01] MEDS: NORCO, ANEXSIA 5/325MG TABLET (HYDROcodone/ACETAMINOPHEN) PO PRN (08:53)
[2016-11-01] MEDS: MULTIVITAMINS/MINERALS THERAP 1 TAB PO SCH (08:53)
[2016-11-01] MEDS: OMEPRAZOLE 20 MG CAP PO SCH (08:53)
[2016-11-01] MEDS: ALVIMOPAN 12 MG CAPSULE (ENTEREG) PO SCH (08:53)
[2016-11-01 10:00] VITALS: BP 157/84
--- NOTE | 2016-11-01 10:40 | IPNPDOC ---
Subjective General Date/Time Seen The patient was seen on 11/01/16 at 10:38. Subject Chief Complaint/History The patient is a 60-year-old male admitted with a reason for visit of Attention To Colostomy. POD4 Reversal of Colostomy. Doing well at this time. His leukocytosis has resolved. Tolerating diet. Havign small bms, passing flatus. Current Medications Current Medications Current Medications Acetaminophen (Tylenol Tab) 650 mg Q4HP PRN PO MILD PAIN or TEMP > 101; Start 10/28/16 at 20:00; Stop 11/27/16 at 19:59 Acetaminophen/ Hydrocodone Bitart ([place], Anexsia 5/325) 1 tab Q4HP PRN PO MODERATE PAIN (PS 5-7) Last administered on 10/30/16 12:58; Start 10/28/16 at 20:00; Stop 11/04/16 at 19:59 Acetaminophen/ Hydrocodone Bitart ([place], Anexsia 5/325) 2 tab Q6HP PRN PO SEVERE PAIN (PS 8-10) Last administered on 11/01/16 08:53; Start 10/28/16 at 20 :00; Stop 11/04/16 at 19:59 Alvimopan (Entereg) 12 mg BID PO Last administered on 11/01/16 08:53; Start at 21:00; Stop 11/04/16 at 20:59 Enoxaparin Sodium (Lovenox) 40 mg DAILY@0700 SC Last administered on 11/01/16 06:10; Start 10/29/16 at 07:00; Stop 11/03/16 at 06:59 Fentanyl Citrate (Sublimaze) 25 mcg Q5MP PRN IV MODERATE PAIN (PS 4-7); Start 10/28/16 at 20:30; Stop 10/28/16 at 21:30; Status DC Insulin Human Lispro (HumaLOG INSULIN) SEE PROTOCOL TABLE AC SC Last administered on 10/31/16 12:58; Start 10/29/16 at 07:30; Stop 11/28/16 at 07:29 Insulin Human Lispro (HumaLOG INSULIN) SEE PROTOCOL TABLE QHS SC ; Start at 21:00; Stop 11/27/16 at 20:59 Ketorolac Tromethamine (ToRADol) 30 mg Q6H IV Last administered on 10/30/16 08 :24; Start 10/28/16 at 20:00; Stop 10/30/16 at 15:04; Status DC Lactated Ringer's 1,000 ml @ 50 mls/hr Q20H IV Last administered on 10/29/16 05:31; Start 10/28/16 at 19:57; Stop 10/29/16 at 17:55; Status DC Lactated Ringer's 1,000 ml @ 100 mls/hr Q10H IV ; Start 10/28/16 at 20:30; Stop 10/28/16 at 21:30; Status DC Lactated Ringer's 1,000 ml @ 200 mls/hr Q5H IV ; Start 10/28/16 at 11:30; Stop 10/28/16 at 20:15; Status DC Levothyroxine Sodium (Synthroid) 125 mcg DAILY@0600 PO Last administered on 06:10; Start 10/28/16 at 06:00; Stop 11/27/16 at 05:59 Metoclopramide HCl (REGLAN INJection) 10 mg Q6HP PRN IV NAUSEA OR VOMITING; Start 10/28/16 at 20:00; Stop 11/27/16 at 19:59 Metoclopramide HCl (REGLAN INJection) 10 mg Q6HP PRN IV NAUSEA OR VOMITING; Start 10/28/16 at 20:30; Stop 10/28/16 at 21:30; Status DC Morphine Sulfate (Morphine Sulfate Inj) 2 mg Q2HP PRN IV SEVERE PAIN (PS 8-10) Last administered on 10/28/16 22:24; Start 10/28/16 at 20:00; Stop 11/04/16 at 19:59 Morphine Sulfate (Morphine Sulfate Inj) 2 mg Q5MP PRN IV MODERATE/SEVERE PAIN ( PS 7-10) Last administered on 10/28/16 21:25; Start 10/28/16 at 20:30; Stop at 21:30; Status DC Morphine Sulfate (Morphine Sulfate Inj) 4 mg Q2HP PRN IV SEVERE PAIN (PS 8-10) ; Start 10/28/16 at 20:00; Stop 11/04/16 at 19:59 Multivitamins (Theragram-M) 1 tab DAILY PO Last administered on 11/01/16 08:53 ; Start 10/28/16 at 09:00; Stop 11/27/16 at 08:59 Omeprazole (PriLOSEC) 20 mg DAILY PO Last administered on 11/01/16 08:53; Start 10/30/16 at 09:00; Stop 11/29/16 at 08:59 Ondansetron HCl (ZOFRAN INJection) 4 mg Q4HP PRN IV NAUSEA OR VOMITING; Start 10/28/16 at 20:30; Stop 10/28/16 at 21:30; Status DC Ondansetron HCl (ZOFRAN INJection) 4 mg Q6HP PRN IV NAUSEA OR VOMITING; Start 10/28/16 at 20:00; Stop 11/27/16 at 19:59 Oxycodone/ Acetaminophen (Percocet 5mg/ 325mg Tablet) 1 tab ASDIRECTED PRN PO MODERATE PAIN (PS 4-7); Start 10/28/16 at 20:30; Stop 10/28/16 at 21:30; Status DC Pantoprazole Sodium (Protonix) 40 mg DAILY IV Last administered on 10/29/16 08 :28; Start 10/28/16 at 09:00; Stop 10/29/16 at 17:55; Status DC Allergies Coded Allergies: Penicillins (Verified Allergy, Intermediate, HIVES, 10/28/16) Codeine (Unverified Adverse Reaction, Unknown, nightmares, 10/21/16) Objective Physical Examination Examination GENERAL APPEARANCE:comfortable. SKIN: Warm and moist. HEENT: Normocephalic, atraumatic. [place] palpebral conjunctiva, anicteric sclerae. Lips and mucosa appear moist. NECK: Supple, no thyromegaly. No obvious jugular venous distention. LUNGS: Clear to auscultation bilaterally. No wheezing appreciated. HEART: No chest wall abnormalities. Regular rate and rhythm with no murmurs appreciated. ABDOMEN: Abdomen is round, soft, midly distended. incision sites are clean, dry , intact. [place] intact. drain site clean. EXTREMITIES: Extremities have no deformities. No edema identified. Vital Signs Vital Signs Date Time Temp Pulse Resp B/P (MAP) Pulse Ox O2 Delivery O2 Flow Rate FiO2 11/01/16 10:00 97.9 79 18 157/84 (108) 96 Room Air 10/29/16 22:00 2.0 10/28/16 22:20 80 I&Os I&O- Last 24 Hours up to 6 AM 11/01/16 05:59 Intake Total 2640 ml Output Total 659 ml Balance 1981 ml Laboratory Data Labs 24H Laboratory Tests 2 10/31/16 12:24: Bedside Glucose (Misc Panel) 125H 10/31/16 16:46: Bedside Glucose (Misc Panel) 90 10/31/16 20:22: Bedside Glucose (Misc Panel) 134H 11/01/16 05:58: White Blood Count 9.9, Red Blood Count 4.65, Hemoglobin 14.4, Hematocrit 42.3, Mean Corpuscular Volume 91.2, Mean Corpuscular Hemoglobin 31.0, Mean Corpuscular Hemoglobin Concent 34.0, Red Cell Distribution Width 14.3, Platelet Count 232, Neutrophils (%) (Auto) 73.9H, Lymphocytes (%) (Auto) 14.7L, Monocytes (%) (Auto) 5.5H, Eosinophils (%) (Auto) 4.4H, Basophils (%) (Auto) 0.3 , Neutrophils # (Auto) 7.3, Lymphocytes # (Auto) 1.6, Monocytes # (Auto) 0.6, Eosinophils # (Auto) 0.4, Basophils # (Auto) 0.0, Large Unclassified Cells % 1.2 , Large Unclassified Cells # 0.1 11/01/16 06:26: Bedside Glucose (Misc Panel) 103 CBC/BMP Laboratory Tests 11/01/16 05:58 Red Blood Count 4.65, Mean Corpuscular Volume 91.2, Mean Corpuscular Hemoglobin 31.0, Mean Corpuscular Hemoglobin Concent 34.0, Red Cell Distribution Width 14.3 , Neutrophils (%) (Auto) 73.9 H, Lymphocytes (%) (Auto) 14.7 L, Monocytes (%) ( Auto) 5.5 H, Eosinophils (%) (Auto) 4.4 H, Basophils (%) (Auto) 0.3, Neutrophils # (Auto) 7.3, Lymphocytes # (Auto) 1.6, Monocytes # (Auto) 0.6, Eosinophils # (Auto) 0.4, Basophils # (Auto) 0.0 Impression POD 4 reversal of colostomy I think he is stable enough to go home. His leukocytosis has resolved. Follow up with Dr. Hong next week Plan / VTE VTE Prophylaxis Ordered?: Yes Plan / Urinary Catheter Reason for insertion/continuin: Perioperative FLACO SOLER MD Nov 01, 2016 10:40
[2016-11-01] MEDS ORDERED: NORCOTAB PO (10:43)
--- NOTE | 2016-11-06 22:48 | DSES ---
DATE OF ADMISSION: 10/28/2016 DATE OF DISCHARGE: 11/01/2016 ADMISSION DIAGNOSIS: Colostomy for elective closure. HISTORY OF PRESENT ILLNESS: The patient is a very pleasant 60-year-old man who presented on May 14 with abdominal pain with nausea and vomiting. He was found to have peritonitis with CT evidence of perforation. An emergency exploratory laparotomy was performed. He had diffuse peritonitis which appeared to arise from a markedly inflamed and indurated sigmoid colon. A sigmoid colectomy was performed with oversewing of his rectal stump and an end-descending colostomy was performed. He recovered well. Followup colonoscopy on September 21 showed that he had extensive diverticulosis involving the entire colon. A small polyp was removed from the descending colon but was not recovered. Endoscopy of his rectum showed that there was some diverticulosis in the rectosigmoid region. He is now admitted to undergo a laparoscopic and possible open colostomy closure. HOSPITAL COURSE: The patient performed an antibiotic and mechanical bowel preparation utilizing Suprep with neomycin and Flagyl on October 27. He was admitted on the and taken directly to the operating room. He underwent a laparoscopy with extensive lysis of adhesions. The rectosigmoid was quite scarred and, in order to place a staple line across the upper rectum to achieve a good point for an anastomosis, it was necessary to proceed to a laparotomy with a lower midline incision. He therefore underwent a sigmoid colectomy with closure of his colostomy with a coloproctostomy. His appendix was removed because in the course of freeing this from adhesions, the appendix appeared somewhat devascularized. Postoperatively, the patient had a Pulido catheter kept in place. He was started on clear liquids on the night of surgery. He had a 19-Wolof Brenden drain in the pelvis. By postoperative day one, his urine output was good. He used a small amount of Dowagiac and morphine as needed for pain. He also received some Toradol on a [id number]-bviod basis. Because his dissection was quite low and just posterior to the bladder, his Pulido catheter was continued for an additional day. He was encouraged to be out of bed. He was kept on clear liquids until the evening of the and then his diet was advanced. His Pulido catheter was removed on the . He had some flatus by the . His drain had little out. When his drain output had minimized, this was removed. His diet was advanced. He was encouraged to be up ambulatory. He showed no signs of any infection. He made good progress and was discharged on the November 01, 2016. FINAL DIAGNOSES: 1. Colostomy status for elective closure. 2. Extensive diverticulosis. 3. Hypothyroidism. 4. Type 2 diabetes mellitus. 5. Hypercholesterolemia. 6. Gastroesophageal reflux disease. 7. Ongoing tobacco use. PROCEDURE PERFORMED Laparoscopic converted to open lysis of adhesions, sigmoid colectomy, and closure of colostomy with coloproctostomy and appendectomy. He was discharged home on November 01. He was to followup in the office with az on November 10 at 1415. He was advised against any strenuous activity. He could take a regular diet as tolerated. He could shower. He was to call for any problems. He was provided a prescription for Dowagiac to take on an as-needed basis for pain. He was to continue his aspirin, levothyroxine, metformin, multivitamin and omeprazole. [facility]PITALClarita
== END 2016-11-01 11:36 | disposition home or self-care (01) | DRG 331 ==
LOC: M OR 11:16 → M MSPAV 21:47
PROVIDERS: ADMIT Surgery; ATTEND Surgery
PROC: 0WQF0ZZ Repair Abdominal Wall, Open Approach (ICD-10-PCS; 2016-10-28)
PROC: 0DBN0ZZ Excision of Sigmoid Colon, Open Approach (ICD-10-PCS; 2016-10-28)
PROC: 0DTJ0ZZ Resection of Appendix, Open Approach (ICD-10-PCS; 2016-10-28)
PROC: 0DN84ZZ Release Small Intestine, Percutaneous Endoscopic Approach (ICD-10-PCS; 2016-10-28)
PROC: 0DQN0ZZ Repair Sigmoid Colon, Open Approach (ICD-10-PCS; principal; 2016-10-28 13:15)
DX: Z43.3 Encounter for attention to colostomy (principal); E03.9 Hypothyroidism, unspecified; E11.9 Type 2 diabetes mellitus without complications; E78.00 Pure hypercholesterolemia, unspecified; K21.9 Gastro-esophageal reflux disease without esophagitis; Z72.0 Tobacco use; K57.90 Diverticulosis of intestine, part unspecified, without perforation or abscess without bleeding; Z88.0 Allergy status to penicillin; Z88.5 Allergy status to narcotic agent; Z79.84 Long term (current) use of oral hypoglycemic drugs; Z96.641 Presence of right artificial hip joint; Z79.899 Other long term (current) drug therapy

== ENCOUNTER → 2019-09-15 | Outpatient (CLI) | payer OTHER ==
[~2019-09-15] MED LIST changes: +AMLO10TA5 PO; +ASPI-255 PO; +ASPI-527 PO; -ASPI1TAB PO; -ASPI325T24 PO; -ASPI325T28 PO; +ASPI81TA26 PO; +ATOR1TAB19 PO; +HYDR-3715 PO; +LEVO112T2 PO; +LISI30TA4 PO; +MM S100C PO; +OMEP1CAP73 PO; -OMEP20CA3 PO
== END ==
LOC: M LABSMTC 08:18
PROVIDERS: ATTEND Anesthesiology
DX: Z01.818 Encounter for other preprocedural examination (principal); Z11.59 Encounter for screening for other viral diseases

== ENCOUNTER 2019-09-18 10:29 | Day surgery (SDC) | payer OTHER ==
[~2019-09-18] VITALS: Ht 170.2 cm; Wt 70.3 kg
[~2019-09-18 10:29] MED LIST changes: +LIDOCAINE 2% 100MG/5ML SDV (FOR ANES.) As Ordered ONE; +LISI-672 PO; -LISI30TA4 PO; +NS 1,000 ML IV ONE; +propofoL 200 MG/20 ML VIAL As Ordered ONE
--- NOTE | 2019-09-18 11:57 | ROOR ---
Patient Name: Darrian Garcia Procedure Date: 09/18/2019 11:15 AM Date of : 1955 Age: 63 Room: [facility] Gender: Male Note Status: Finalized Procedure: Colonoscopy Indications: High risk colon cancer surveillance: Personal history of colonic polyps Providers: Paul Hong MD Referring MD: [facility] J[facility] AD[facility], Admin. Requesting Provider: Medicines: Monitored Anesthesia Care Complications: No immediate complications. Procedure: Pre-Anesthesia Assessment: - Prior to the procedure, a History and Physical was performed, and patient medications and allergies were reviewed. The patient is competent. The risks and benefits of the procedure and the sedation options and risks were discussed with the patient. All questions were answered and informed consent was obtained. Patient identification and proposed procedure were verified by the physician, the nurse and the school age teacher in the procedure room. Mental Status Examination: alert and oriented. Prophylactic Antibiotics: The patient does not require prophylactic antibiotics. Prior Anticoagulants: The patient has taken no previous anticoagulant or antiplatelet agents. ASA Grade Assessment: II - A patient with mild systemic disease. After reviewing the risks and benefits, the patient was deemed in satisfactory condition to undergo the procedure. The anesthesia plan was to use monitored anesthesia care (MAC). Immediately prior to administration of medications, the patient was re-assessed for adequacy to receive sedatives. The heart rate, respiratory rate, oxygen saturations, blood pressure, adequacy of pulmonary ventilation, and response to care were monitored throughout the procedure. The physical status of the patient was re-assessed after the procedure. The Colonoscope was introduced through the anus and advanced to the cecum, identified by the appendiceal orifice. The colonoscopy was performed without difficulty. The patient tolerated the procedure well. The quality of the bowel preparation was fair. There were chunks of vegetables scattered through the colon. These obscured portions of the colon, probably up to 10-15%. Findings: The perianal and digital rectal examinations were normal. Many large-mouthed diverticula were found in the entire colon. There was evidence of a prior functional end-to-end colo-rectal anastomosis in the recto-sigmoid colon. This was patent and was characterized by healthy appearing mucosa. Two sessile polyps were found in the cecum. The polyps were 3 to 5 mm in size. These polyps were removed with a hot snare. Resection and retrieval were complete. Impression: - Preparation of the colon was fair. - Diverticulosis in the entire examined colon. - Patent functional end-to-end colo-rectal anastomosis, characterized by healthy appearing mucosa. - Two 3 to 5 mm polyps in the cecum, removed with a hot snare. Resected and retrieved. Recommendation: - Discharge patient to home. - Resume previous diet. - Continue present medications. - Await pathology results. - Repeat colonoscopy in 3 - 5 years for surveillance. Paul Hong MD Paul Hong MD 09/18/2019 11:57:35 AM Electronically signed by Paul Hong MD Number of Addenda: 0 Note Initiated On: 09/18/2019 11:15 AM Estimated Blood Loss: Estimated blood loss was minimal.
[2019-09-18] MEDS ORDERED: PHENYLephrine HCL 500 MCG/5 ML (100MCG/ML) SYRINGE (J2370) As Ordered ONE (12:02)
[2019-09-18] MEDS ORDERED: ePHEDrine SULFATE 25 MG/5 ML(5MG/ML) SYRINGE As Ordered ONE (12:02)
[2019-09-18 12:15] VITALS: BP 117/67
== END 2019-09-18 12:28 | disposition home or self-care (01) ==
LOC: M OPP 10:29
PROVIDERS: ATTEND Surgery
DX: Z86.010 Personal history of colon polyps (principal); Z98.0 Intestinal bypass and anastomosis status; K63.5 Polyp of colon; K57.30 Diverticulosis of large intestine without perforation or abscess without bleeding; K21.9 Gastro-esophageal reflux disease without esophagitis; Z09 Encounter for follow-up examination after completed treatment for conditions other than malignant neoplasm; J44.9 Chronic obstructive pulmonary disease, unspecified; E03.9 Hypothyroidism, unspecified; I10 Essential (primary) hypertension; E11.9 Type 2 diabetes mellitus without complications; Z79.82 Long term (current) use of aspirin; Z79.899 Other long term (current) drug therapy; Z80.0 Family history of malignant neoplasm of digestive organs; Z88.5 Allergy status to narcotic agent; Z90.49 Acquired absence of other specified parts of digestive tract
CPT/HCPCS: 45385; 88305; J2370

== ENCOUNTER → 2021-04-20 | Outpatient (CLI) | payer OTHER ==
[~2021-04-20] MED LIST changes: -AMLO10TA5 PO; +AMLO1TAB25 PO; -LIDOCAINE 2% 100MG/5ML SDV (FOR ANES.) As Ordered ONE; -LISI-672 PO; +LISI30TA4 PO; -NS 1,000 ML IV ONE; -propofoL 200 MG/20 ML VIAL As Ordered ONE
--- NOTE | 2021-04-20 08:56 | REP ---
INDICATION: SMOKER COMPARISON: None. TECHNIQUE: Axial noncontrast images from the thoracic inlet to the upper abdomen using low-dose lung screening technique (LDCT). FINDINGS: Advanced COPD/emphysematous changes with scattered scarring and bronchiectasis noted. Few scattered noncalcified nodules are identified including 11 mm nodule in the left lower lobe (series 201; image 82). No effusion. No pneumothorax. IMPRESSION: Lung-RADS category 4A. 11 mm nodule in the left lower lobe. Management recommendations include 3 month follow-up CT and or PET-CT. <Electronically signed by Daron Hamilton > 04/20/21 0838
== END ==
LOC: M RAD 08:10
PROVIDERS: ATTEND Nurse Practitioner Family
DX: Z12.2 Encounter for screening for malignant neoplasm of respiratory organs (principal); F17.200 Nicotine dependence, unspecified, uncomplicated; R91.1 Solitary pulmonary nodule

== ENCOUNTER → 2021-06-02 | Outpatient (CLI) | payer OTHER | LOC: M PLARAD 07:55 | PROVIDERS: ATTEND Internal Medicine Pulmonary Disease | DX: R91.8 Other nonspecific abnormal finding of lung field (principal); I65.23 Occlusion and stenosis of bilateral carotid arteries; J43.9 Emphysema, unspecified; J84.9 Interstitial pulmonary disease, unspecified; K44.9 Diaphragmatic hernia without obstruction or gangrene; Z96.641 Presence of right artificial hip joint; E07.9 Disorder of thyroid, unspecified | CPT/HCPCS: 78815; A9552 ==

== ENCOUNTER → 2021-06-23 | Outpatient (REF) | payer OTHER | LOC: M LAB REF 13:52 | PROVIDERS: ATTEND Physician Assistant | DX: C44.310 Basal cell carcinoma of skin of unspecified parts of face (principal) ==

== ENCOUNTER → 2022-11-09 | Outpatient (CLI) | payer MEDICARE, OTHER | LOC: M RAD 08:19 | PROVIDERS: ATTEND Internal Medicine Pulmonary Disease | DX: F17.218 Nicotine dependence, cigarettes, with other nicotine-induced disorders (principal); Z12.2 Encounter for screening for malignant neoplasm of respiratory organs; J43.9 Emphysema, unspecified; R59.0 Localized enlarged lymph nodes; E07.9 Disorder of thyroid, unspecified ==

== ENCOUNTER 2023-01-28 12:01 | Emergency (ER) | payer MEDICARE, OTHER ==
[~2023-01-28] VITALS: Ht 170.2 cm; Wt 69.8 kg
[2023-01-28] MEDS ORDERED: LIDOCAINE W/EPINEPHRINE 1% 20ML VIAL SC ONE (12:45)
[2023-01-28] MEDS ORDERED: BOOSTRIX VACCINE (TETANUS/DIPHTH/ACEL. PERTUSSIS) 0.5ML SYR IM.IMMUN ONE (12:50)
[2023-01-28] MEDS ORDERED: CEPHALEXIN 500 MG CAP PO ONE (13:45)
[2023-01-28] MEDS ORDERED: CEPH500C PO (14:01)
[2023-01-28 14:27] VITALS: BP 119/82; TEMP 96.3; O2SAT 95
== END 2023-01-28 14:29 | disposition home or self-care (01) ==
LOC: M ED 12:01 → EDBD 12:01 → M ED 14:29
DX: S61.512A Laceration without foreign body of left wrist, initial encounter (principal); W29.8XXA Contact with other powered hand tools and household machinery, initial encounter; K21.9 Gastro-esophageal reflux disease without esophagitis; I10 Essential (primary) hypertension; E11.9 Type 2 diabetes mellitus without complications; Y92.009 Unspecified place in unspecified non-institutional (private) residence as the place of occurrence of the external cause; Z88.0 Allergy status to penicillin; Z88.5 Allergy status to narcotic agent; Z79.811 Long term (current) use of aromatase inhibitors; Z79.899 Other long term (current) drug therapy; Z23 Encounter for immunization

== ENCOUNTER → 2023-06-15 | Outpatient (CLI) | payer MEDICARE ==
[~2023-06-15] MED LIST changes: +CEPH500C PO; +GASTROGRAFIN SOLUTION 30ML As Ordered ONE; +ISOVUE-370 76% 100ML VIAL As Ordered ONE
[2023-06-15 09:47] LABS: BLOOD UREA NITROGEN 12 MG/DL (9-23); CREATININE FOR GFR 0.75 MG/DL (0.70-1.30); GLOMERULAR FILTRATION RATE > 60.0 (>49)
== END ==
LOC: M RAD 08:07
PROVIDERS: ATTEND Surgery
DX: K57.32 Diverticulitis of large intestine without perforation or abscess without bleeding (principal); R91.1 Solitary pulmonary nodule; K76.0 Fatty (change of) liver, not elsewhere classified
CPT/HCPCS: 36415; 74177; 82565; 84520; Q9963; Q9967

== ENCOUNTER 2023-08-24 08:49 | Day surgery (SDC) | payer MEDICARE ==
[~2023-08-24] VITALS: Ht 170.2 cm; Wt 69.4 kg
[~2023-08-24 08:49] MED LIST changes: -GASTROGRAFIN SOLUTION 30ML As Ordered ONE; -ISOVUE-370 76% 100ML VIAL As Ordered ONE; +ROSU40TA4 PO
[2023-08-24] MEDS: NS 1,000 ML IV ONE (09:39)
[2023-08-24] MEDS ORDERED: propofoL 200 MG/20 ML VIAL As Ordered ONE (10:36)
[2023-08-24] MEDS ORDERED: PHENYLephrine 500MCG 5ML (100MCG/ML) SYRINGE As Ordered ONE (10:49)
[2023-08-24 11:10] VITALS: BP 131/68; O2SAT 94
== END 2023-08-24 11:11 | disposition home or self-care (01) ==
LOC: M OPP 08:49
PROVIDERS: ATTEND Surgery
DX: Z86.010 Personal history of colon polyps (principal); K64.1 Second degree hemorrhoids; K57.30 Diverticulosis of large intestine without perforation or abscess without bleeding; F17.200 Nicotine dependence, unspecified, uncomplicated; I25.10 Atherosclerotic heart disease of native coronary artery without angina pectoris; E11.9 Type 2 diabetes mellitus without complications; I10 Essential (primary) hypertension; E03.9 Hypothyroidism, unspecified; Z79.51 Long term (current) use of inhaled steroids; Z79.890 Hormone replacement therapy; Z79.899 Other long term (current) drug therapy; Z88.0 Allergy status to penicillin; Z88.5 Allergy status to narcotic agent
CPT/HCPCS: G0105; J2371